=== PATIENT | female | born 1940 | race Caucasian/White ===

== ENCOUNTER 2017-12-01 17:10 | Inpatient (IN) | payer MEDICARE, SELFPAY ==
[2017-12-01 17:48] VITALS: BP 133/63; PULSE 96; RESP 20; TEMP 37.4; O2SAT 92; BMI 38.0
--- NOTE | 2017-12-01 17:50 | NURSING ---
Pt admitted to room 3 from [facility] via cot. Pt oriented to room and call light system explained.
--- NOTE | 2017-12-01 19:44 | PCM.HP.STD ---
Problem List (1) Upper GI bleed Status: Acute (2) Mural thrombus of heart Status: Chronic (3) Depression Status: Chronic (4) Hyperlipidemia Status: Chronic (5) Gout Status: Chronic (6) Anxiety Status: Chronic (7) Insomnia Status: Chronic (8) Pulmonary emboli Status: Chronic (9) Hypokalemia Status: Chronic (10) Iron deficiency anemia Status: Chronic (11) CAD (coronary artery disease) Status: Chronic (12) Hypertension Status: Chronic History of Present Illness Date of Admission: 12/01/17 Chief Complaint: Here for rehabilitation, strengthening, prior to discharge home. The patient is a 77 year old Female with below past medical history presented to [facility] Emergency Department 11/23/2017 with vomiting, diarrhea. She was vomiting red blood, and her stools were black x 3. She is on Xarelto for pulmonary embolism. 11/23/2017 Patient was transferred to [facility] for care. 12/01/2017 Admit to TCU for rehabilitation, strengthening, prior to discharge home. Past Medical History Past Medical History (Chronic Problems): Chronic Problems (Last Updated 10/16/17 @ 13:28 by Tiff Paul) Mural thrombus of heart (Chronic) Depression (Chronic) Presence of aortocoronary bypass graft (Chronic ~07/31/17) CABG x 4 DEMPSEY- LAD, Free JAVIER-OM, SVG-PDA and Disatl RCA Atherosclerotic heart disease of [place] coronary artery without angina pectoris (Chronic) Atrial fibrillation with rapid ventricular response (Chronic) Hyperlipidemia (Chronic) Hyperkalemia (Chronic) Gout (Chronic) Anxiety (Chronic) Aortic mural thrombus (Chronic) Insomnia (Chronic) Carotid artery stenosis (Chronic) PAOD (peripheral arterial occlusive disease) (Chronic) DVT (deep venous thrombosis) (Chronic) Pulmonary emboli (Chronic) Fall (Chronic) Debility (Chronic) Bilateral deep vein thromboses (Chronic) Hypokalemia (Chronic) Morbid obesity (Chronic) Iron deficiency anemia (Chronic) CAD (coronary artery disease) (Chronic) Morbid obesity with BMI of 40.0-44.9, adult (Chronic) Non-STEMI (non-ST elevated myocardial infarction) (Chronic) Dyspnea (Chronic) Orthopnea (Chronic) Hypertension (Chronic) Hypercholesterolemia (Chronic) Descending aorta atherosclerotic plaquin (Chronic) Unstable angina (Chronic) Allergies Latex, Natural Rubber Allergy (Verified 11/23/17 03:58) Itching Sulfa (Sulfonamide Antibiotics) Allergy (Verified 11/23/17 03:58) Other Home Medications: Ambulatory Orders Medication Instructions Recorded Aspirin [Aspirin, Baby] 81 mg PO DAILY@0800 07/25/17 Melatonin 3 mg PO QHS PRN 09/11/17 Metoprolol(XL)Succ [Toprol Xl 100 mg PO DAILY 09/11/17 (Beta Lokesh)] Paroxetine HCl 10 mg PO DAILY 09/11/17 allopurinol 300 mg tablet 100 mg PO QDAY 10/16/17 rosuvastatin 20 mg tablet 20 mg PO QDAY 10/16/17 Chlorthalidone 25 mg PO DAILY 12/01/17 Febuxostat [Uloric] 40 mg PO DAILY 12/01/17 Polyethylene Glycol 3350 [Miralax] 17 gm PO DAILY PRN 12/01/17 Rivaroxaban [Xarelto] 20 mg PO DAILY@0600 12/01/17 Surgical History: coronary bypass surgery - x 4. 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 Denies: Chills, Fever, Weight Change HEENT: Denies: Head Aches, Sinus Congestion, Sinus Drainage Cardiovascular: Denies: Chest Pain, Palpitations Respiratory: Denies: Cough, Shortness of breath at rest, Sputum production Gastrointestinal: Denies: Abdominal Pain, Nausea, Vomiting Genitourinary: Denies: Dysuria Musculoskeletal: Denies: Joint Pain, Joint Tenderness Skin: Denies: Rash, Wounds Neurological: Denies: Numbness, Tingling, Focal weakness Psychiatric: Denies: Anxiety, Depression, Homicidal Ideations, Suicidal Ideations Hematologic/ Lymphatic: Denies: Easy Bruising, Easy Bleeding VTE Information - Inpt Only VTE Present on Admission: No VTE Mechan Device Prophylaxis: Knee High ABY Hose VTE Pharm Prophylaxis ordered?: No Reason prophylaxis not ordered:: Treatment Not Indicated Patient Problems: Active and Suspected Problems (Last Updated 10/16/17 @ 13:28 by Tiff Paul) Upper GI bleed (Acute) - Physical Exam General: Alert, Oriented x3, Cooperative HEENT: Atraumatic, PERRLA, EOMI, Normocephalic Neck: Supple, No JVD, Negative Carotid Bruits Lungs: Clear to auscultation, Normal air movement Cardiovascular: Regular rate, No murmurs Abdomen: Bowel Sounds Present, Soft, Non Tender Extremities: No edema, Capillary Refill Less than 3 Seconds Skin: No rashes, No breakdown Musculoskeletal: No Tenderness to Palpation of Joints or Extremities Neurological: Cranial nerves II-XII grossly intact Psych/Mental Status: Normal Affect, Appropriate Vital Signs Temp Pulse Resp BP Pulse Ox 99.4 F H 96 20 H 133/63 H 92 12/01/17 17:48 12/01/17 17:48 12/01/17 17:48 12/01/17 17:48 12/01/17 17:48 Oxygen Delivery Method Room Air Assessment/Plan Active and Suspected Problems (Last Updated 10/16/17 @ 13:28 by Tiff Paul) Upper GI bleed (Acute) 77 year old female with below past medical history hospitalized at [facility] for upper GI bleed, admitted to TCU for rehabilitation, strengthening, prior to discharge home. Debility - PT/OT. Pain - Tylenol 1000MG Q8H PRN mild pain. Bowel - Miralax 17GM daily, Dulcolax 10MG PO daily PRN. Pneumonia vaccination - Administer Prevnar 13 and/or Pneumovax 23 as necessary. DVT prophylaxis - Not necessary, already on Eliquis. Gout - Allopurinol 100MG daily, Uloric 40MG daily, not sure if she needs both, consider stopping Allopurinol. Coronary Artery Disease status post CABG x 4 - Metoprolol succinate 100MG daily, Aspirin 81MG daily. Hyperlipidemia - Atorvastatin 40MG QHS. Hypertension - Chlorthalidone 25MG daily. Insomnia - Melatonin 3MG QHS PRN. GERD - Pantoprazole 40MG daily. Depression - Paroxetine 20MG daily. DVT/PE - Change Xarelto 20MG daily to Eliquis 5MG twice daily, risk of bleeding is much lower.
[2017-12-01 19:48] VITALS: BMI 38.0
--- NOTE | 2017-12-01 19:56 | HP.PCM_ITS ---
Problem List (1) Upper GI bleed Status: Acute (2) Mural thrombus of heart Status: Chronic (3) Depression Status: Chronic (4) Hyperlipidemia Status: Chronic (5) Gout Status: Chronic (6) Anxiety Status: Chronic (7) Insomnia Status: Chronic (8) Pulmonary emboli Status: Chronic (9) Hypokalemia Status: Chronic (10) Iron deficiency anemia Status: Chronic (11) CAD (coronary artery disease) Status: Chronic (12) Hypertension Status: Chronic History of Present Illness Date of Admission: 12/01/17 Chief Complaint: Here for rehabilitation, strengthening, prior to discharge home. The patient is a 77 year old Female with below past medical history presented to [facility] Emergency Department 11/23/2017 with vomiting, diarrhea. She was vomiting red blood, and her stools were black x 3. She is on Xarelto for pulmonary embolism. 11/23/2017 Patient was transferred to [facility] for care. 12/01/2017 Admit to TCU for rehabilitation, strengthening, prior to discharge home. Past Medical History Past Medical History (Chronic Problems): Chronic Problems (Last Updated 10/16/17 @ 13:28 by Tiff Paul) Mural thrombus of heart (Chronic) Depression (Chronic) Presence of aortocoronary bypass graft (Chronic ~07/31/17) CABG x 4 DEMPSEY- LAD, Free JAVIER-OM, SVG-PDA and Disatl RCA Atherosclerotic heart disease of [place] coronary artery without angina pectoris (Chronic) Atrial fibrillation with rapid ventricular response (Chronic) Hyperlipidemia (Chronic) Hyperkalemia (Chronic) Gout (Chronic) Anxiety (Chronic) Aortic mural thrombus (Chronic) Insomnia (Chronic) Carotid artery stenosis (Chronic) PAOD (peripheral arterial occlusive disease) (Chronic) DVT (deep venous thrombosis) (Chronic) Pulmonary emboli (Chronic) Fall (Chronic) Debility (Chronic) Bilateral deep vein thromboses (Chronic) Hypokalemia (Chronic) Morbid obesity (Chronic) Iron deficiency anemia (Chronic) CAD (coronary artery disease) (Chronic) Morbid obesity with BMI of 40.0-44.9, adult (Chronic) Non-STEMI (non-ST elevated myocardial infarction) (Chronic) Dyspnea (Chronic) Orthopnea (Chronic) Hypertension (Chronic) Hypercholesterolemia (Chronic) Descending aorta atherosclerotic plaquin (Chronic) Unstable angina (Chronic) Allergies Latex, Natural Rubber Allergy (Verified 11/23/17 03:58) Itching Sulfa (Sulfonamide Antibiotics) Allergy (Verified 11/23/17 03:58) Other Home Medications: Ambulatory Orders Medication Instructions Recorded Aspirin [Aspirin, Baby] 81 mg PO DAILY@0800 07/25/17 Melatonin 3 mg PO QHS PRN 09/11/17 Metoprolol(XL)Succ [Toprol Xl 100 mg PO DAILY 09/11/17 (Beta Lokesh)] Paroxetine HCl 10 mg PO DAILY 09/11/17 allopurinol 300 mg tablet 100 mg PO QDAY 10/16/17 rosuvastatin 20 mg tablet 20 mg PO QDAY 10/16/17 Chlorthalidone 25 mg PO DAILY 12/01/17 Febuxostat [Uloric] 40 mg PO DAILY 12/01/17 Polyethylene Glycol 3350 [Miralax] 17 gm PO DAILY PRN 12/01/17 Rivaroxaban [Xarelto] 20 mg PO DAILY@0600 12/01/17 Surgical History: coronary bypass surgery - x 4. 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 Denies: Chills, Fever, Weight Change HEENT: Denies: Head Aches, Sinus Congestion, Sinus Drainage Cardiovascular: Denies: Chest Pain, Palpitations Respiratory: Denies: Cough, Shortness of breath at rest, Sputum production Gastrointestinal: Denies: Abdominal Pain, Nausea, Vomiting Genitourinary: Denies: Dysuria Musculoskeletal: Denies: Joint Pain, Joint Tenderness Skin: Denies: Rash, Wounds Neurological: Denies: Numbness, Tingling, Focal weakness Psychiatric: Denies: Anxiety, Depression, Homicidal Ideations, Suicidal Ideations Hematologic/ Lymphatic: Denies: Easy Bruising, Easy Bleeding VTE Information - Inpt Only VTE Present on Admission: No VTE Mechan Device Prophylaxis: Knee High ABY Hose VTE Pharm Prophylaxis ordered?: No Reason prophylaxis not ordered:: Treatment Not Indicated Patient Problems: Active and Suspected Problems (Last Updated 10/16/17 @ 13:28 by Tiff Paul) Upper GI bleed (Acute) - Physical Exam General: Alert, Oriented x3, Cooperative HEENT: Atraumatic, PERRLA, EOMI, Normocephalic Neck: Supple, No JVD, Negative Carotid Bruits Lungs: Clear to auscultation, Normal air movement Cardiovascular: Regular rate, No murmurs Abdomen: Bowel Sounds Present, Soft, Non Tender Extremities: No edema, Capillary Refill Less than 3 Seconds Skin: No rashes, No breakdown Musculoskeletal: No Tenderness to Palpation of Joints or Extremities Neurological: Cranial nerves II-XII grossly intact Psych/Mental Status: Normal Affect, Appropriate Vital Signs Temp Pulse Resp BP Pulse Ox 99.4 F H 96 20 H 133/63 H 92 12/01/17 17:48 12/01/17 17:48 12/01/17 17:48 12/01/17 17:48 12/01/17 17:48 Oxygen Delivery Method Room Air Assessment/Plan Active and Suspected Problems (Last Updated 10/16/17 @ 13:28 by Tiff Paul) Upper GI bleed (Acute) 77 year old female with below past medical history hospitalized at [facility] for upper GI bleed, admitted to TCU for rehabilitation, strengthening, prior to discharge home. * Debility - PT/OT. * Pain - Tylenol 1000MG Q8H PRN mild pain. * Bowel - Miralax 17GM daily, Dulcolax 10MG PO daily PRN. * Pneumonia vaccination - Administer Prevnar 13 and/or Pneumovax 23 as necessary. * DVT prophylaxis - Not necessary, already on Eliquis. * Gout - Allopurinol 100MG daily, Uloric 40MG daily, not sure if she needs both , consider stopping Allopurinol. * Coronary Artery Disease status post CABG x 4 - Metoprolol succinate 100MG daily, Aspirin 81MG daily. * Hyperlipidemia - Atorvastatin 40MG QHS. * Hypertension - Chlorthalidone 25MG daily. * Insomnia - Melatonin 3MG QHS PRN. * GERD - Pantoprazole 40MG daily. * Depression - Paroxetine 20MG daily. * DVT/PE - Change Xarelto 20MG daily to Eliquis 5MG twice daily, risk of bleeding is much lower.
[2017-12-01] MEDS: Atorvastatin Calcium 40 MG Tablet PO (21:48)
[2017-12-01] MEDS: MELATONIN 3 MG TABLET PO (21:49)
[2017-12-02] MEDS: Menthol/Lanolin/Calamine/Znox 113 GM Tube 1 APPLIC TOPICAL ×2 (06:43→22:13)
[2017-12-02] MEDS: APIXABAN 5 MG TABLET PO ×2 (06:44→22:14)
[2017-12-02 06:45] VITALS: PULSE 88
[2017-12-02] MEDS: Metoprolol(XL)Succ 100 MG Tablet PO (06:45)
[2017-12-02] MEDS: PARoxetine 10 MG Tablet PO (06:45)
[2017-12-02] MEDS: FEBUXOSTAT 40 MG TABLET PO (06:45)
[2017-12-02] MEDS: Nystatin Powder 15gm Bottle 1 APPLIC TOPICAL ×2 (06:45→22:17)
[2017-12-02] MEDS: Polyethylene Glycol 3350 17 GM PACKET PO (06:46)
[2017-12-02] MEDS: Chlorthalidone 50 MG Tablet 25 MG PO (06:46)
[2017-12-02 06:52] LABS: Absolute Lymphocyte Count 1.74 X10^3/ul (0.83-4.51); Absolute Neutrophil Count 8.5 X10^3/uL (2.0-7.7); Basophil# 0.02 X10^3/uL; Basophil% 0.2 % (0-1); Eosinophil# 0.28 X10^3/uL; Eosinophils% 2.3 % (0-5); Hematocrit 25.2 % (37-47); Hemoglobin 7.8 g/dl (12.0-15.0); Lymphocyte # 1.74 X10^3/ul (4.0); Lymphocyte % 14.6 % (19-41); Mean Corpuscular Hgb 29.7 pg (27.0-32.0); Mean Corpuscular Volume 95.8 fL (81-99); Mean Platelet Vol. 10.3 fl (6.2-12.0); Monocyte# 1.32 X10^3/uL; Monocyte% 11.1 % (0-10); Neutrophil # 8.51 X10^3/uL (2.7-7.7); Neutrophil % 71.4 % (47-70); Platelet Count 337 K/mm3 (150-450); RBC Distribution Width CV 16.4 % (11.6-14.6); RBC Distribution Width SD 53.4 fl (35.1-43.9); Red Blood Count 2.63 M/mm3 (4.2-5.4); White Blood Count 11.9 K/mm3 (4.4-11.0)
[2017-12-02 06:57] LABS: POSITIVE COUNT NO; POSITIVE DIFFERENTIAL NO; POSITIVE MORPHOLOGY NO
[2017-12-02 07:29] LABS: Anion Gap 10 (5-15); BUN 32 mg/dL (7-18); BUN/Creat Ratio 20.6 RATIO (10-20); Calcium,Total 8.9 mg/dL (8.5-10.1); Chloride 102 mmol/L (98-107); Creatinine, Serum 1.55 mg/dL (0.55-1.02); EST Glomerular Filtration Rate 35 mL/min (>60); Est Glom Filt Rate - Afr Amer 42 mL/min (>60); Estimated Creatinine Clearance 29.36 ml/min; Glucose 102 mg/dL (70-110); Potassium 3.5 mmol/L (3.5-5.1); Sodium Level 139 mmol/L (136-145)
[2017-12-02] MEDS: Aspirin 81 MG TAB.CHEW PO (08:11)
[2017-12-02] MEDS: Tuberculin,Purif.prot.deriv. 50 TU/ML Vial 5 ML ID (11:21)
--- NOTE | 2017-12-02 11:21 | NURSING ---
Labs reviewed, NO for 2 units PRBC, type and screen and 40mg IV lasix in between each unit of PRBC. Patient mad aware.
--- NOTE | 2017-12-02 13:58 | NURSING ---
Pt transported to room 205 on [facility] via wheelchair for blood transfusion.
[2017-12-02] MEDS: Acetaminophen 500 MG Tablet 1000 MG PO (16:31)
--- NOTE | 2017-12-02 21:50 | NURSING ---
Pt returned from [facility] via wheelchair.
[2017-12-02 22:09] VITALS: BP 138/83; PULSE 76; RESP 18; TEMP 37.1; O2SAT 96
[2017-12-02] MEDS: Atorvastatin Calcium 40 MG Tablet PO (22:13)
[2017-12-02] MEDS: MELATONIN 3 MG TABLET PO (22:14)
[2017-12-03] MEDS: Menthol/Lanolin/Calamine/Znox 113 GM Tube 1 APPLIC TOPICAL ×2 (06:02→20:36)
[2017-12-03] MEDS: Chlorthalidone 50 MG Tablet 25 MG PO (06:06)
[2017-12-03] MEDS: Nystatin Powder 15gm Bottle 1 APPLIC TOPICAL ×2 (06:09→20:36)
[2017-12-03] MEDS: Polyethylene Glycol 3350 17 GM PACKET PO (06:09)
[2017-12-03] MEDS: PARoxetine 10 MG Tablet PO (06:10)
[2017-12-03 06:16] LABS: Hematocrit 31.8 % (37-47); Hemoglobin 10.1 g/dl (12.0-15.0)
[2017-12-03 06:20] VITALS: PULSE 81
[2017-12-03] MEDS: Metoprolol(XL)Succ 100 MG Tablet PO (06:20)
[2017-12-03] MEDS: FEBUXOSTAT 40 MG TABLET PO (06:21)
[2017-12-03] MEDS: APIXABAN 5 MG TABLET PO ×2 (06:21→16:56)
[2017-12-03] MEDS: Aspirin 81 MG TAB.CHEW PO (08:03)
[2017-12-03 10:00] VITALS: PULSE 77; RESP 18; O2SAT 96
[2017-12-03] MEDS: Acetaminophen 500 MG Tablet 1000 MG PO (11:06)
[2017-12-03 14:17] VITALS: BP 155/92; PULSE 78; RESP 18; O2SAT 94
[2017-12-03 14:21] LABS: Bedside Glucose 135 mg/dL (70-110)
--- NOTE | 2017-12-03 14:24 | NURSING ---
Addendum entered by Harriet Monson 12/03/17 15:19: dr knutson notified, new order for chest xray & resp panel Original Note: therapy reported pt clammy, diaphoretic. vitals obtained, see documentation. blood sugar checked 135. Pt noted to have nasal congestion. denies any other symptoms except feeling blah will update Dr Knutson
--- NOTE | 2017-12-03 15:17 | RAD_ITS ---
STUDY: X-RAY CHEST REASON FOR EXAM: Female, 77 years old. Cough, GI bleed TECHNIQUE: PA and lateral views of the chest. COMPARISON: September 11, 2017 FINDINGS: The lungs are clear and expanded. There is no demonstrated pleural abnormality. Normal size heart. Sternal wires and mediastinal surgical clips compatible with prior CABG. Normal mediastinum and gabi. Normal visualized pulmonary arteries. There is atherosclerotic calcification of the aortic arch with tortuosity. There are diffuse degenerative changes of the visualized thoracic spine. Normal visualized ribs, clavicles, and shoulders. There is no demonstrated abnormality of the visualized soft tissue structures of the upper abdomen. RAD/Chest PA and Lateral IMPRESSION: 1. No acute cardiopulmonary process. Electronically Signed: Roberth Pino MD at 18:24 EST , Service support ,
--- NOTE | 2017-12-03 15:20 | PCM.PN.RX ---
<Hilario Nur D - Last Filed: 12/03/17 15:20> Progress Note - Pharmacy Subjective: TCU Admission Objective: Allergies Latex, Natural Rubber Allergy (Verified 11/23/17 03:58) Itching Sulfa (Sulfonamide Antibiotics) Allergy (Verified 11/23/17 03:58) Other Home Medications Medication Instructions Recorded Aspirin [Aspirin, Baby] 81 mg PO DAILY@0800 07/25/17 Melatonin 3 mg PO QHS PRN 09/11/17 Metoprolol(XL)Succ [Toprol Xl 100 mg PO DAILY 09/11/17 (Beta Lokesh)] Paroxetine HCl 10 mg PO DAILY 09/11/17 allopurinol 300 mg tablet 100 mg PO QDAY 10/16/17 rosuvastatin 20 mg tablet 20 mg PO QDAY 10/16/17 Chlorthalidone 25 mg PO DAILY 12/01/17 Febuxostat [Uloric] 40 mg PO DAILY 12/01/17 Polyethylene Glycol 3350 [Miralax] 17 gm PO DAILY PRN 12/01/17 Rivaroxaban [Xarelto] 20 mg PO DAILY@0600 12/01/17 Current Medications Generic Name Dose Route Start Last Admin Trade Name Freq PRN Reason Stop Dose Admin Acetaminophen 1,000 mg 12/01/17 19:56 12/03/17 11:06 Tylenol PO 1,000 mg Q8H PRN PRN Administration MILD PAIN (1-3/10) Apixaban 5 mg 12/02/17 06:00 12/03/17 06:21 Eliquis PO 5 mg BID RICK Administration Aspirin 81 mg 12/02/17 08:00 12/03/17 08:03 Aspirin, Baby PO 81 mg DAILY@0800 RICK Administration Atorvastatin Calcium 40 mg 12/01/17 22:00 12/02/17 22:13 Lipitor PO 40 mg QHS RICK Administration Bisacodyl 10 mg 12/01/17 19:57 Dulcolax PO DAILY PRN Constipation Calamine/Phenol 1 applic 12/02/17 06:00 12/03/17 06:02 Calmoseptine Ointment TOPICAL 1 applicatio 0600,2200 RICK Administration Protocol Chlorthalidone 25 mg 12/02/17 06:00 12/03/17 06:06 Hygroton PO 25 mg DAILY RICK Administration Melatonin 3 mg 12/01/17 17:59 12/02/17 22:14 Melatonin PO 3 mg QHS PRN Administration INSOMNIA Metoprolol Succinate 100 mg 12/02/17 06:00 12/03/17 06:20 Toprol Xl (Beta Lokesh) PO 100 mg DAILY RICK Administration Nutritional Formula (Lactose Free) 120 ml 12/02/17 06:00 12/03/17 11:08 Ensure Enlive PO 120 ml 4X/DAY RICK Administration Nystatin 1 applic 12/02/17 06:00 12/03/17 06:09 Mycostatin Powder TOPICAL 1 applicatio 0600,2200 RICK Administration Protocol Pantoprazole Sodium 40 mg 01/24/18 06:00 Protonix PO DAILY RICK Paroxetine HCl 10 mg 12/02/17 06:00 12/03/17 06:10 Paxil PO 10 mg DAILY RICK Administration Polyethylene Glycol 17 gm 12/02/17 06:00 12/03/17 06:09 Miralax PO 17 gm DAILY RICK Administration Tuberculin PPD 5 tu 12/09/17 10:00 Tubersol, Aplisol, Ppd ID 12/09/17 10:01 X1 ONE Problem List (Last Updated 10/16/17 @ 13:28 by Tiff Paul) Upper GI bleed (Acute) Mural thrombus of heart (Chronic) Depression (Chronic) Vital Signs Temp Pulse Resp BP Pulse Ox 98.7 F 78 18 155/92 H 94 12/02/17 22:09 12/03/17 14:17 12/03/17 14:17 12/03/17 14:17 12/03/17 14:17 Oxygen Delivery Method Room Air Weight: 106.821 kg Body Mass Index (BMI) 38.0 Sodium 139 mmol/L (136-145) 12/02/17 06:22 Potassium 3.5 mmol/L (3.5-5.1) 12/02/17 06:22 Chloride 102 mmol/L (98-107) 12/02/17 06:22 Carbon Dioxide 27.0 mmol/L (21.0-32.0) 12/02/17 06:22 Anion Gap 10 (5-15) 12/02/17 06:22 BUN 32 mg/dL (7-18) H 12/02/17 06:22 Creatinine 1.55 mg/dL (0.55-1.02) H 12/02/17 06:22 Est GFR (MDRD) Af Amer 42 mL/min (>60) L 12/02/17 06:22 Est GFR (MDRD) Non-Af 35 mL/min (>60) L 12/02/17 06:22 BUN/Creatinine Ratio 20.6 RATIO (10-20) H 12/02/17 06:22 Glucose 102 mg/dL (70-110) 12/02/17 06:22 Assessment/Plan: 1) Pain APAP for mild pain. Continue to monitor prn medication use, daily pain scores. 2) HTN/CAD Chlorthalidone, ASA, metoprolol, atorvastatin. BP not at goal at this time, HR within goal range, lipids at goal, hepatic enzymes at goal. Continue to monitor BP/HR, lipids, enzymes, for chest pain. 3) Gout Febuxostat daily. Continue to monitor clinically. 4) DVT/PE Apixaban twice daily. Hgb/Hct at baseline at this time. Continue to monitor s/s bleeding/clot. 5) GI Pantoprazole daily. Continue to monitor for s/s GI distress. 6) Derm Calmoseptine, nystatin powder. Continue to monitor clinically. 7) Sleep Melatonin at HS. Continue to monitor for insomnia. Psychotropic Medications: 8) Depression Paroxetine daily. Continue to monitor s/s depression/anxiety. Unnecessary Medications: None Bowel Regimen: 9) PEG daily, prn bisacodyl. Continue to monitor prn medication use, for constipation/diarrhea. Date of Note:: 12/03/17 - Provider Comments Provider responsibility: Provider responsible to enter orders to implement recommendations <Karan Knutson Chi - Last Filed: 12/03/17 17:08> Progress Note - Pharmacy Subjective: [] Objective: Allergies Latex, Natural Rubber Allergy (Verified 11/23/17 03:58) Itching Sulfa (Sulfonamide Antibiotics) Allergy (Verified 11/23/17 03:58) Other Home Medications Medication Instructions Recorded Aspirin [Aspirin, Baby] 81 mg PO DAILY@0800 07/25/17 Melatonin 3 mg PO QHS PRN 09/11/17 Metoprolol(XL)Succ [Toprol Xl 100 mg PO DAILY 09/11/17 (Beta Lokesh)] Paroxetine HCl 10 mg PO DAILY 09/11/17 allopurinol 300 mg tablet 100 mg PO QDAY 10/16/17 rosuvastatin 20 mg tablet 20 mg PO QDAY 10/16/17 Chlorthalidone 25 mg PO DAILY 12/01/17 Febuxostat [Uloric] 40 mg PO DAILY 12/01/17 Polyethylene Glycol 3350 [Miralax] 17 gm PO DAILY PRN 12/01/17 Rivaroxaban [Xarelto] 20 mg PO DAILY@0600 12/01/17 Current Medications Generic Name Dose Route Start Last Admin Trade Name Freq PRN Reason Stop Dose Admin Acetaminophen 1,000 mg 12/01/17 19:56 12/03/17 11:06 Tylenol PO 1,000 mg Q8H PRN PRN Administration MILD PAIN (1-310) Apixaban 5 mg 12/02/17 06:00 12/03/17 16:56 Eliquis PO 5 mg BID RICK Administration Aspirin 81 mg 12/02/17 08:00 12/03/17 08:03 Aspirin, Baby PO 81 mg DAILY@0800 RICK Administration Atorvastatin Calcium 40 mg 12/01/17 22:00 12/02/17 22:13 Lipitor PO 40 mg QHS RICK Administration Bisacodyl 10 mg 12/01/17 19:57 Dulcolax PO DAILY PRN Constipation Calamine/Phenol 1 applic 12/02/17 06:00 12/03/17 06:02 Calmoseptine Ointment TOPICAL 1 applicatio 0600,2200 [facility] Administration Protocol Chlorthalidone 25 mg 12/02/17 06:00 12/03/17 06:06 Hygro[place] PO 25 mg DAILY RICK Administration Melatonin 3 mg 12/01/17 17:59 12/02/17 22:14 Melatonin PO 3 mg QHS PRN Administration INSOMNIA Metoprolol Succinate 100 mg 12/02/17 06:00 12/03/17 06:20 Toprol Xl (Beta Lokesh) PO 100 mg DAILY RICK Administration Nutritional Formula (Lactose Free) 120 ml 12/02/17 06:00 12/03/17 16:56 Ensure Enlive PO 120 ml 4X/DAY RICK Administration Nystatin 1 applic 12/02/17 06:00 12/03/17 06:09 Mycostatin Powder TOPICAL 1 applicatio 0600,2200 [facility] Administration Protocol Pantoprazole Sodium 40 mg 01/24/18 06:00 Protonix PO DAILY [facility] Paroxetine HCl 10 mg 12/02/17 06:00 12/03/17 06:10 Paxil PO 10 mg DAILY RICK Administration Polyethylene Glycol 17 gm 12/02/17 06:00 12/03/17 06:09 Miralax PO 17 gm DAILY RICK Administration Tuberculin PPD 5 tu 12/09/17 10:00 Tubersol, Aplisol, Ppd ID 12/09/17 10:01 X1 ONE Problem List (Last Updated 10/16/17 @ 13:28 by Tiff Paul) Upper GI bleed (Acute) Mural thrombus of heart (Chronic) Depression (Chronic) Vital Signs Temp Pulse Resp BP Pulse Ox 97.2 F L 80 18 137/71 H 98 12/03/17 15:51 12/03/17 15:51 12/03/17 15:51 12/03/17 15:51 12/03/17 15:51 Oxygen Delivery Method Room Air Weight: 106.821 kg Body Mass Index (BMI) 38.0 Sodium 139 mmol/L (136-145) 12/02/17 06:22 Potassium 3.5 mmol/L (3.5-5.1) 12/02/17 06:22 Chloride 102 mmol/L (98-107) 12/02/17 06:22 Carbon Dioxide 27.0 mmol/L (21.0-32.0) 12/02/17 06:22 Anion Gap 10 (5-15) 12/02/17 06:22 BUN 32 mg/dL (7-18) H 12/02/17 06:22 Creatinine 1.55 mg/dL (0.55-1.02) H 12/02/17 06:22 Est GFR (MDRD) Af Amer 42 mL/min (>60) L 12/02/17 06:22 Est GFR (MDRD) Non-Af 35 mL/min (>60) L 12/02/17 06:22 BUN/Creatinine Ratio 20.6 RATIO (10-20) H 12/02/17 06:22 Glucose 102 mg/dL (70-110) 12/02/17 06:22 Assessment/Plan: Psychotropic Medications: Unnecessary Medications: Bowel Regimen: - Provider Comments Provider responsibility: Provider responsible to enter orders to implement recommendations Provider Comments to Recommendations by Pharmacy: Agree
--- NOTE | 2017-12-03 15:27 | PHA.CONS_ITS ---
<Hilario Nur D - Last Filed: 12/03/17 15:20> Progress Note - Pharmacy Subjective: TCU Admission Objective: Allergies Latex, Natural Rubber Allergy (Verified 11/23/17 03:58) Itching Sulfa (Sulfonamide Antibiotics) Allergy (Verified 11/23/17 03:58) Other Home Medications Medication Instructions Recorded Aspirin [Aspirin, Baby] 81 mg PO DAILY@0800 07/25/17 Melatonin 3 mg PO QHS PRN 09/11/17 Metoprolol(XL)Succ [Toprol Xl 100 mg PO DAILY 09/11/17 (Beta Lokesh)] Paroxetine HCl 10 mg PO DAILY 09/11/17 allopurinol 300 mg tablet 100 mg PO QDAY 10/16/17 rosuvastatin 20 mg tablet 20 mg PO QDAY 10/16/17 Chlorthalidone 25 mg PO DAILY 12/01/17 Febuxostat [Uloric] 40 mg PO DAILY 12/01/17 Polyethylene Glycol 3350 [Miralax] 17 gm PO DAILY PRN 12/01/17 Rivaroxaban [Xarelto] 20 mg PO DAILY@0600 12/01/17 Current Medications Generic Name Dose Route Start Last Admin Trade Name Freq PRN Reason Stop Dose Admin Acetaminophen 1,000 mg 12/01/17 19:56 12/03/17 11:06 Tylenol PO 1,000 mg Q8H PRN PRN Administration MILD PAIN (1-3/10) Apixaban 5 mg 12/02/17 06:00 12/03/17 06:21 Eliquis PO 5 mg BID RICK Administration Aspirin 81 mg 12/02/17 08:00 12/03/17 08:03 Aspirin, Baby PO 81 mg DAILY@0800 RICK Administration Atorvastatin Calcium 40 mg 12/01/17 22:00 12/02/17 22:13 Lipitor PO 40 mg QHS RICK Administration Bisacodyl 10 mg 12/01/17 19:57 Dulcolax PO DAILY PRN Constipation Calamine/Phenol 1 applic 12/02/17 06:00 12/03/17 06:02 Calmoseptine Ointment TOPICAL 1 applicatio 0600,2200 RICK Administration Protocol Chlorthalidone 25 mg 12/02/17 06:00 12/03/17 06:06 Hygroton PO 25 mg DAILY RICK Administration Melatonin 3 mg 12/01/17 17:59 12/02/17 22:14 Melatonin PO 3 mg QHS PRN Administration INSOMNIA Metoprolol Succinate 100 mg 12/02/17 06:00 12/03/17 06:20 Toprol Xl (Beta Lokesh) PO 100 mg DAILY RICK Administration Nutritional Formula (Lactose Free) 120 ml 12/02/17 06:00 12/03/17 11:08 Ensure Enlive PO 120 ml 4X/DAY RICK Administration Nystatin 1 applic 12/02/17 06:00 12/03/17 06:09 Mycostatin Powder TOPICAL 1 applicatio 0600,2200 RICK Administration Protocol Pantoprazole Sodium 40 mg 01/24/18 06:00 Protonix PO DAILY RICK Paroxetine HCl 10 mg 12/02/17 06:00 12/03/17 06:10 Paxil PO 10 mg DAILY RICK Administration Polyethylene Glycol 17 gm 12/02/17 06:00 12/03/17 06:09 Miralax PO 17 gm DAILY RICK Administration Tuberculin PPD 5 tu 12/09/17 10:00 Tubersol, Aplisol, Ppd ID 12/09/17 10:01 X1 ONE Problem List (Last Updated 10/16/17 @ 13:28 by Tiff Paul) Upper GI bleed (Acute) Mural thrombus of heart (Chronic) Depression (Chronic) Vital Signs Temp Pulse Resp BP Pulse Ox 98.7 F 78 18 155/92 H 94 12/02/17 22:09 12/03/17 14:17 12/03/17 14:17 12/03/17 14:17 12/03/17 14:17 Oxygen Delivery Method Room Air Weight: 106.821 kg Body Mass Index (BMI) 38.0 Sodium 139 mmol/L (136-145) 12/02/17 06:22 Potassium 3.5 mmol/L (3.5-5.1) 12/02/17 06:22 Chloride 102 mmol/L (98-107) 12/02/17 06:22 Carbon Dioxide 27.0 mmol/L (21.0-32.0) 12/02/17 06:22 Anion Gap 10 (5-15) 12/02/17 06:22 BUN 32 mg/dL (7-18) H 12/02/17 06:22 Creatinine 1.55 mg/dL (0.55-1.02) H 12/02/17 06:22 Est GFR (MDRD) Af Amer 42 mL/min (>60) L 12/02/17 06:22 Est GFR (MDRD) Non-Af 35 mL/min (>60) L 12/02/17 06:22 BUN/Creatinine Ratio 20.6 RATIO (10-20) H 12/02/17 06:22 Glucose 102 mg/dL (70-110) 12/02/17 06:22 Assessment/Plan: 1) Pain APAP for mild pain. Continue to monitor prn medication use, daily pain scores. 2) HTN/CAD Chlorthalidone, ASA, metoprolol, atorvastatin. BP not at goal at this time, HR within goal range, lipids at goal, hepatic enzymes at goal. Continue to monitor BP/HR, lipids, enzymes, for chest pain. 3) Gout Febuxostat daily. Continue to monitor clinically. 4) DVT/PE Apixaban twice daily. Hgb/Hct at baseline at this time. Continue to monitor s /s bleeding/clot. 5) GI Pantoprazole daily. Continue to monitor for s/s GI distress. 6) Derm Calmoseptine, nystatin powder. Continue to monitor clinically. 7) Sleep Melatonin at HS. Continue to monitor for insomnia. Psychotropic Medications: 8) Depression Paroxetine daily. Continue to monitor s/s depression/anxiety. Unnecessary Medications: None Bowel Regimen: 9) PEG daily, prn bisacodyl. Continue to monitor prn medication use, for constipation/diarrhea. Date of Note:: 12/03/17 - Provider Comments Provider responsibility: Provider responsible to enter orders to implement recommendations <Karan Knutson Chi - Last Filed: 12/03/17 17:08> Progress Note - Pharmacy Subjective: [] Objective: Allergies Latex, Natural Rubber Allergy (Verified 11/23/17 03:58) Itching Sulfa (Sulfonamide Antibiotics) Allergy (Verified 11/23/17 03:58) Other Home Medications Medication Instructions Recorded Aspirin [Aspirin, Baby] 81 mg PO DAILY@0800 07/25/17 Melatonin 3 mg PO QHS PRN 09/11/17 Metoprolol(XL)Succ [Toprol Xl 100 mg PO DAILY 09/11/17 (Beta Lokesh)] Paroxetine HCl 10 mg PO DAILY 09/11/17 allopurinol 300 mg tablet 100 mg PO QDAY 10/16/17 rosuvastatin 20 mg tablet 20 mg PO QDAY 10/16/17 Chlorthalidone 25 mg PO DAILY 12/01/17 Febuxostat [Uloric] 40 mg PO DAILY 12/01/17 Polyethylene Glycol 3350 [Miralax] 17 gm PO DAILY PRN 12/01/17 Rivaroxaban [Xarelto] 20 mg PO DAILY@0600 12/01/17 Current Medications Generic Name Dose Route Start Last Admin Trade Name Freq PRN Reason Stop Dose Admin Acetaminophen 1,000 mg 12/01/17 19:56 12/03/17 11:06 Tylenol PO 1,000 mg Q8H PRN PRN Administration MILD PAIN (1-310) Apixaban 5 mg 12/02/17 06:00 12/03/17 16:56 Eliquis PO 5 mg BID RICK Administration Aspirin 81 mg 12/02/17 08:00 12/03/17 08:03 Aspirin, Baby PO 81 mg DAILY@0800 RICK Administration Atorvastatin Calcium 40 mg 12/01/17 22:00 12/02/17 22:13 Lipitor PO 40 mg QHS RICK Administration Bisacodyl 10 mg 12/01/17 19:57 Dulcolax PO DAILY PRN Constipation Calamine/Phenol 1 applic 12/02/17 06:00 12/03/17 06:02 Calmoseptine Ointment TOPICAL 1 applicatio 0600,2200 [facility] Administration Protocol Chlorthalidone 25 mg 12/02/17 06:00 12/03/17 06:06 Hygroton PO 25 mg DAILY RICK Administration Melatonin 3 mg 12/01/17 17:59 12/02/17 22:14 Melatonin PO 3 mg QHS PRN Administration INSOMNIA Metoprolol Succinate 100 mg 12/02/17 06:00 12/03/17 06:20 Toprol Xl (Beta Lokesh) PO 100 mg DAILY RICK Administration Nutritional Formula (Lactose Free) 120 ml 12/02/17 06:00 12/03/17 16:56 Ensure Enlive PO 120 ml 4X/DAY RICK Administration Nystatin 1 applic 12/02/17 06:00 12/03/17 06:09 Mycostatin Powder TOPICAL 1 applicatio 0600,2200 [facility] Administration Protocol Pantoprazole Sodium 40 mg 01/24/18 06:00 Protonix PO DAILY [facility] Paroxetine HCl 10 mg 12/02/17 06:00 12/03/17 06:10 Paxil PO 10 mg DAILY RICK Administration Polyethylene Glycol 17 gm 12/02/17 06:00 12/03/17 06:09 Miralax PO 17 gm DAILY RICK Administration Tuberculin PPD 5 tu 12/09/17 10:00 Tubersol, Aplisol, Ppd ID 12/09/17 10:01 X1 ONE Problem List (Last Updated 10/16/17 @ 13:28 by Tiff Paul) Upper GI bleed (Acute) Mural thrombus of heart (Chronic) Depression (Chronic) Vital Signs Temp Pulse Resp BP Pulse Ox 97.2 F L 80 18 137/71 H 98 12/03/17 15:51 12/03/17 15:51 12/03/17 15:51 12/03/17 15:51 12/03/17 15:51 Oxygen Delivery Method Room Air Weight: 106.821 kg Body Mass Index (BMI) 38.0 Sodium 139 mmol/L (136-145) 12/02/17 06:22 Potassium 3.5 mmol/L (3.5-5.1) 12/02/17 06:22 Chloride 102 mmol/L (98-107) 12/02/17 06:22 Carbon Dioxide 27.0 mmol/L (21.0-32.0) 12/02/17 06:22 Anion Gap 10 (5-15) 12/02/17 06:22 BUN 32 mg/dL (7-18) H 12/02/17 06:22 Creatinine 1.55 mg/dL (0.55-1.02) H 12/02/17 06:22 Est GFR (MDRD) Af Amer 42 mL/min (>60) L 12/02/17 06:22 Est GFR (MDRD) Non-Af 35 mL/min (>60) L 12/02/17 06:22 BUN/Creatinine Ratio 20.6 RATIO (10-20) H 12/02/17 06:22 Glucose 102 mg/dL (70-110) 12/02/17 06:22 Assessment/Plan: Psychotropic Medications: Unnecessary Medications: Bowel Regimen: - Provider Comments Provider responsibility: Provider responsible to enter orders to implement recommendations Provider Comments to Recommendations by Pharmacy: Agree
[2017-12-03 15:51] VITALS: BP 137/71; PULSE 80; RESP 18; TEMP 36.2; O2SAT 98
--- NOTE | 2017-12-03 15:54 | NURSING ---
Addendum entered by Harriet Monson 12/03/17 18:58: CHEST XRAY RESULTS CALLED TO [facility] Original Note: Addendum entered by Harriet Monson 12/03/17 17:34: dr bergeron updated, new order JANE to check circulation and check uric acid level Original Note: THIS NURSE FOUND PT TOES ON RIGHT BIG,3RD AND SMALL TOE ARE PURPLE/BLUE. AND ON LEFT FOOT BIG,AND 2ND TOE PURPLE/BLUE. PT COMPLANED OF PAIN IN FEET. REPORTED TO MARTHA OSUNA
[2017-12-03 18:18] LABS: Uric Acid 4.1 mg/dL (2.6-6.0)
[2017-12-03] MEDS: Atorvastatin Calcium 40 MG Tablet PO (20:36)
[2017-12-03] MEDS: MELATONIN 3 MG TABLET PO (20:53)
[2017-12-04] MEDS: Acetaminophen 500 MG Tablet 1000 MG PO ×3 (01:10→21:03)
[2017-12-04 06:00] VITALS: PULSE 78; RESP 16; O2SAT 96
[2017-12-04] MEDS: Chlorthalidone 50 MG Tablet 25 MG PO (06:31)
[2017-12-04] MEDS: Menthol/Lanolin/Calamine/Znox 113 GM Tube 1 APPLIC TOPICAL ×2 (06:31→20:58)
[2017-12-04] MEDS: APIXABAN 5 MG TABLET PO ×2 (06:31→17:02)
[2017-12-04] MEDS: PARoxetine 10 MG Tablet PO (06:32)
[2017-12-04] MEDS: FEBUXOSTAT 40 MG TABLET PO (06:32)
[2017-12-04] MEDS: Polyethylene Glycol 3350 17 GM PACKET PO (06:32)
[2017-12-04] MEDS: Nystatin Powder 15gm Bottle 1 APPLIC TOPICAL ×2 (06:32→20:59)
[2017-12-04 06:36] VITALS: BP 142/77; PULSE 78
[2017-12-04] MEDS: Metoprolol(XL)Succ 100 MG Tablet PO (06:36)
[2017-12-04] MEDS: Aspirin 81 MG TAB.CHEW PO (07:51)
--- NOTE | 2017-12-04 12:53 | CASEMGMT ---
Insurance Clinical information faxed. Pending continued stay approval at this time. Auth#[id number] Alondra MENDEZ, FLEXBOARD OPERATOR
[2017-12-04 13:44] VITALS: BP 136/65; PULSE 74; RESP 18; TEMP 36.9; O2SAT 96
--- NOTE | 2017-12-04 13:45 | NURSING ---
PT CALLED THIS NURSE TO ROOM. PT COMPLANED OF FEELING LIGHT HEADED,DIZZY IN THERAPY. PT DENIED CHEST PAINS AND SHORT OF BREATH. VITALS DONE. REPORTED TO MARTAH OSUNA
[2017-12-04 15:29] VITALS: BP 128/65; PULSE 67; RESP 20; TEMP 37.2; O2SAT 90
[2017-12-04] MEDS: Atorvastatin Calcium 40 MG Tablet PO (21:00)
[2017-12-04] MEDS: MELATONIN 3 MG TABLET PO (21:00)
[2017-12-05 06:41] VITALS: BP 144/74; PULSE 64
[2017-12-05] MEDS: Metoprolol(XL)Succ 100 MG Tablet PO (06:41)
[2017-12-05] MEDS: Menthol/Lanolin/Calamine/Znox 113 GM Tube 1 APPLIC TOPICAL ×2 (06:41→20:51)
[2017-12-05] MEDS: FEBUXOSTAT 40 MG TABLET PO (06:42)
[2017-12-05] MEDS: Chlorthalidone 50 MG Tablet 25 MG PO (06:42)
[2017-12-05] MEDS: PARoxetine 10 MG Tablet PO (06:42)
[2017-12-05] MEDS: Nystatin Powder 15gm Bottle 1 APPLIC TOPICAL (06:42)
[2017-12-05] MEDS: Polyethylene Glycol 3350 17 GM PACKET PO (06:43)
[2017-12-05] MEDS: APIXABAN 5 MG TABLET PO ×2 (06:43→17:00)
[2017-12-05] MEDS: Acetaminophen 500 MG Tablet 1000 MG PO ×2 (08:05→16:59)
[2017-12-05] MEDS: Aspirin 81 MG TAB.CHEW PO (08:05)
--- NOTE | 2017-12-05 10:50 | CASEMGMT ---
Plan of care meeting held. Resident present as well as resident sister. No discharge date set at this time. Resident is pending continued stay approval at [facility] Resident to continue with further care and treatment on the Transitional Care Unit. Resident unsure of discharge plan at this time as resident is unable to return home with [id number] due to [id number] being not open to resident discharging back there. Resident is interested in an assisted living setting. This medical social worker giving resident a list of assisted livings in the area and encouraging resident and resident sister to beginning looking into what options resident would like has a discharge plan. A list of skilled nursing facilities was also given to resident. Support given. This medical social worker to continue to follow with further discharge planning and support. Will continue to follow. Alondra MENDEZ, BARREL HEADER
[2017-12-05] MEDS: oxyCODONE 5 MG Tablet PO ×2 (13:03→20:51)
--- NOTE | 2017-12-05 14:25 | NURSING ---
Addendum entered by Fern Stephens 12/05/17 14:52: Per Clare at Dr. Kurtz's office, she will obtain precert for CTA abd/pelvis, TCU pathology secretary to schedule procedure, Clare will call tomorrow and let us know about the precert Original Note: Pt returned from appt with Dr. Marmolejo this morning, Dr. Drummond consulted for rt 3rd toe, CTA order faxed to [place], will need precert d/t insurance, precert started. Dr. Knutson aware of new orders. Pt also in pain after therapy, stating that the Tylenol is not effective, Dr. Knutson aware. N.O. for Oxyir 5mg Q6H PRN.
[2017-12-05 16:00] VITALS: BP 135/70; PULSE 72; RESP 18; TEMP 36.9; O2SAT 92
--- NOTE | 2017-12-05 17:57 | PCM.HP.STD ---
Problem List (1) Claudication of both lower extremities Status: Chronic (2) Embolic disease of toe Status: Acute (3) Blue toe syndrome of both lower extremities Status: Acute (4) Toe pain, right Status: Chronic History of Present Illness Date of Admission: 12/05/17 Chief Complaint: Blue painful toe right foot more than left foot The patient is a 77 year old F with significant past medical history of atrial fibrillation, cardiac disease status post CABG, peripheral vascular disease, history of pulmonary embolism on chronic anticoagulation, recent upper GI bleed, history of fall, insomnia and debility, iron deficiency, history of myocardial infarction, depression was seen bedside this evening for blue toes. Her right third toe is the most painful. She is a questionable historian at this time and thinks that the color change started a couple of months ago. She relates she has seen a vascular surgeon [facility] at the [facility] and recently saw Dr. Marmolejo as an inpatient who plans to perform a procedure this upcoming week. She denies calf pain. She denies foot trauma or change in shoe gear. She denies drainage or odors. She denies self treatment or dressing care to the toes. Past Medical History Past Medical History (Chronic Problems): Chronic Problems (Last Updated 10/16/17 @ 13:28 by Tiff Paul) Mural thrombus of heart (Chronic) Depression (Chronic) 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) CABG x 4 DEMPSEY- LAD, Free JAVIER-OM, SVG-PDA and Disatl RCA Atherosclerotic heart disease of [place] coronary artery without angina pectoris (Chronic) Atrial fibrillation with rapid ventricular response (Chronic) Hyperlipidemia (Chronic) Hyperkalemia (Chronic) Gout (Chronic) Anxiety (Chronic) Aortic mural thrombus (Chronic) Insomnia (Chronic) Carotid artery stenosis (Chronic) PAOD (peripheral arterial occlusive disease) (Chronic) Toe pain, right (Chronic) DVT (deep venous thrombosis) (Chronic) Pulmonary emboli (Chronic) Fall (Chronic) Debility (Chronic) Bilateral deep vein thromboses (Chronic) Hypokalemia (Chronic) Morbid obesity (Chronic) Iron deficiency anemia (Chronic) CAD (coronary artery disease) (Chronic) Morbid obesity with BMI of 40.0-44.9, adult (Chronic) Non-STEMI (non-ST elevated myocardial infarction) (Chronic) Dyspnea (Chronic) Orthopnea (Chronic) Hypertension (Chronic) Hypercholesterolemia (Chronic) Descending aorta atherosclerotic plaquin (Chronic) Unstable angina (Chronic) Allergies Latex, Natural Rubber Allergy (Verified 11/23/17 03:58) Itching Sulfa (Sulfonamide Antibiotics) Allergy (Verified 11/23/17 03:58) Other Home Medications: Ambulatory Orders Medication Instructions Recorded Aspirin [Aspirin, Baby] 81 mg PO DAILY@0800 07/25/17 Melatonin 3 mg PO QHS PRN 09/11/17 Metoprolol(XL)Succ [Toprol Xl 100 mg PO DAILY 09/11/17 (Beta Lokesh)] Paroxetine HCl 10 mg PO DAILY 09/11/17 allopurinol 300 mg tablet 100 mg PO QDAY 10/16/17 rosuvastatin 20 mg tablet 20 mg PO QDAY 10/16/17 Chlorthalidone 25 mg PO DAILY 12/01/17 Febuxostat [Uloric] 40 mg PO DAILY 12/01/17 Polyethylene Glycol 3350 [Miralax] 17 gm PO DAILY PRN 12/01/17 Rivaroxaban [Xarelto] 20 mg PO DAILY@0600 12/01/17 Surgical History: coronary bypass surgery - x 4. Psychiatric History: Anxiety, Depression, - - insomnia RN TRAUMA History: No pertinent RN TRAUMA history Lives: Alone Smoking Status: Former smoker Tobacco Use: Non-smoker Alcohol: None Drugs: None - *Family History Paternal History Items: No pertinent history Maternal History Items: No pertinent history Review of Systems Constitutional: Reports: Fatigue. Denies: Chills, Fever HEENT: Denies: Sore Throat Cardiovascular: Reports: Claudication. Denies: Chest Pain Respiratory: Denies: Shortness of Breath Gastrointestinal: Denies: Nausea, Vomiting Musculoskeletal: Reports: Foot Pain - Right. Denies: Leg Pain Skin: Reports: Skin Changes - Toes. Denies: Wounds Neurological: Reports: Balance problems - Previous falls, Incoordination Psychiatric: Reports: Depression Hematologic/ Lymphatic: Reports: Easy Bleeding VTE Information - Inpt Only VTE Present on Admission: No VTE Pharm Prophylaxis ordered?: Yes Patient Problems: Active and Suspected Problems (Last Updated 10/16/17 @ 13:28 by Tiff Paul) Upper GI bleed (Acute) Embolic disease of toe (Acute) Blue toe syndrome of both lower extremities (Acute) - Physical Exam General: Alert, Oriented x3, Cooperative, Lethargic HEENT: Atraumatic Extremities: Capillary Refill Less than 3 Seconds - Right foot digits 1, 2, 4, 5 and left foot 1, 2, 3, 4, 5. There does appear to be some blue and violaceous discoloration to the pulse of all the digits that has appropriate capillary refill time to the aforementioned toes is possibly consistent with digital venous congestion. However the right third distal toe at the pulp has a delayed capillary refill time of 6 seconds and it is darker and cool to the touch. There is no camacho gangrene however the long-term viability of this toe tip is to be determined., No Calf Tenderness - Negative Francis and Lofton sign bilateral, Diminished Peripheral Pulses - Nonpalpable PT and DP pulses bilateral, Edema - Bilateral lower extremities Skin: - - No open lesions, no erythema, streaking, no purulence, no interdigital maceration, no crepitus on palpation, no odor bilateral lower extremities. Her skin is hairless and atrophic bilateral Musculoskeletal: No Tenderness to Palpation of Joints or Extremities - No pain to palpate digital joints metatarsal phalangeal joint, midfoot, subtalar joint, ankle bilateral, Muscle Wasting, Tenderness - Pain to palpate distal right third toe tip plantar aspect, - - Compartments of the lower extremity remain soft. Her active range of motion of the digits and ankle in all directions is functional and notable. Neurological: - - Lack of epicritic sensation to light touch is noted bilateral toes Psych/Mental Status: Normal Affect, Appropriate Vital Signs Temp Pulse Resp BP Pulse Ox 98.4 F 72 18 135/70 H 92 12/05/17 16:00 12/05/17 16:00 12/05/17 16:00 12/05/17 16:00 12/05/17 16:00 Oxygen Delivery Method Room Air Weight: 107 kg Body Mass Index (BMI) 38.0 Intake and Output for Last 24 Hours 12/03/17 12/04/17 12/05/17 23:59 23:59 23:59 Intake Total 1200 / 1200 1100 / 1100 480 / 480 Balance 1200 / 1200 1100 / 1100 480 / 480 Microbiology Past 72 Hours 12/03/17 15:45 Respiratory Panel (PCR) - Final Mucosa - Nasopharyngeal Rhinovirus Assessment/Plan Active and Suspected Problems (Last Updated 10/16/17 @ 13:28 by Tiff Paul) Upper GI bleed (Acute) Embolic disease of toe (Acute) Blue toe syndrome of both lower extremities (Acute) Blue toes secondary to peripheral vascular disease versus embolic shower secondary to atrial fibrillation versus potential digital venous congestion Right third toe pain Pre-gangrene right third toe will be monitored Multiple comorbidities noted I reviewed and discussed the case with the patient today. She has discolored toes and no acute signs of infection bilateral lower extremity. I reviewed her diagnostic data. Her white blood cell count is 11.9 and she has stable vitals. I ordered a foot x-ray and results are pending to rule out any acute unknown injuries. Her previous noninvasive vascular studies were reviewed including a right ankle-brachial index of 0.76 and left is 0.96 from 2017. It is noted that vascular surgeon, Dr. Marmolejo, is on consultation and tentatively has her scheduled for a CTA of the abdominal and pelvic area on December 07 pending the precertification. In the meantime I recommend she continues on her current Eliquis. I ordered her topical Nitro-Bid to apply twice daily to the distal third right toe to increase vasodilation to this area improved salvageability. To avoid wearing shoes that press on his toe. A surgical shoe was ordered and she can heel weight-bear. She is reassured no infection is noted today and I do not recommend a dressing. Medical management, DVT prophylaxis, and pain control per primary team is appreciated. Thank you for the consultation. I will continue to follow her while in house. Please do not hesitate to call if you have any questions. Sherrell Frank, [facility] [phone]
--- NOTE | 2017-12-05 18:45 | NURSING ---
Dr. Knutson aware of resp panel, encourage fluids. Pt aware of results as well. Dr. Hardinone here to see pt tonight, nitrobid started BID for rt third toe.
[2017-12-05] MEDS: Atorvastatin Calcium 40 MG Tablet PO (20:52)
[2017-12-05 20:53] VITALS: BP 123/56; PULSE 79
[2017-12-05] MEDS: Nitroglycerin Oint 1 INCH PACKET 0.5 INCH TRANSDERM. (20:53)
[2017-12-05] MEDS: MELATONIN 3 MG TABLET PO (22:27)
[2017-12-05 23:04] VITALS: PULSE 78; RESP 18; O2SAT 96
[2017-12-06] MEDS: Menthol/Lanolin/Calamine/Znox 113 GM Tube 1 APPLIC TOPICAL ×2 (05:28→21:21)
[2017-12-06] MEDS: APIXABAN 5 MG TABLET PO ×2 (05:29→17:55)
[2017-12-06] MEDS: Nystatin Powder 15gm Bottle 1 APPLIC TOPICAL ×2 (05:30→21:22)
[2017-12-06] MEDS: Chlorthalidone 50 MG Tablet 25 MG PO (05:31)
[2017-12-06] MEDS: PARoxetine 10 MG Tablet PO (05:35)
[2017-12-06] MEDS: FEBUXOSTAT 40 MG TABLET PO (05:36)
[2017-12-06 05:47] VITALS: BP 150/78; PULSE 86
[2017-12-06] MEDS: Nitroglycerin Oint 1 INCH PACKET 0.5 INCH TRANSDERM. ×2 (05:47→21:17)
[2017-12-06 05:48] VITALS: BP 150/78; PULSE 86
[2017-12-06] MEDS: Metoprolol(XL)Succ 100 MG Tablet PO (05:48)
[2017-12-06] MEDS: oxyCODONE 5 MG Tablet PO ×3 (05:55→21:21)
[2017-12-06] MEDS: Aspirin 81 MG TAB.CHEW PO (07:59)
--- NOTE | 2017-12-06 08:30 | RAD_ITS ---
STUDY: X-RAY - RIGHT FOOT CLINICAL: Female, 77 years old. Redness the right foot. TECHNIQUE: 3 view(s) of the foot. COMPARISON: None. FINDINGS: There is an enthesophyte involving the posterior superior calcaneus at the site of insertion of the Achilles tendon. Plantar spur. Normal visualized subtalar, talonavicular, calcaneocuboid, tarsal and tarsometatarsal articulations. Normal metatarsi. There is degenerative arthrosis of the metatarsophalangeal joint of the hallux . There is evidence of a periarticular erosion. Gout should be ruled out. Normal tibial and fibular sesamoid bones. Normal interphalangeal joint of the great toe. Normal phalanges of the great toe. Normal second through fifth metatarsophalangeal joints. Normal interphalangeal joints and phalanges of the lesser toes. Diffuse soft tissue swelling. RAD/Foot min 3 Views IMPRESSION: Diffuse soft tissue swelling. Degenerative changes at the first metatarsophalangeal joint. Gout should be ruled out. Calcaneal spurs. Electronically Signed: Milton Shetty MD at 9:33 EST Tel [phone], Service support ,
[2017-12-06 15:34] VITALS: BP 118/63; PULSE 77; RESP 16; TEMP 36.9; O2SAT 93
--- NOTE | 2017-12-06 17:09 | CASEMGMT ---
Insurance Continued stay approved with next update due on 12/10/17. Auth#[id number] Alondra MENDEZ, CARD PUNCHER
--- NOTE | 2017-12-06 18:41 | NURSING ---
Pt has c/o dizziness, diaphoresis and decreased HR during therapy. Dr. Knutson made aware, NO to decrease metoprolol to 50mg daily.
[2017-12-06 21:17] VITALS: BP 156/82; PULSE 87
[2017-12-06] MEDS: Atorvastatin Calcium 40 MG Tablet PO (21:21)
[2017-12-06] MEDS: MELATONIN 3 MG TABLET PO (21:21)
[2017-12-06 22:00] VITALS: PULSE 87; RESP 18; O2SAT 92
[2017-12-07] MEDS: Menthol/Lanolin/Calamine/Znox 113 GM Tube 1 APPLIC TOPICAL ×2 (04:57→20:30)
[2017-12-07] MEDS: APIXABAN 5 MG TABLET PO ×2 (04:58→20:29)
[2017-12-07] MEDS: Chlorthalidone 50 MG Tablet 25 MG PO (04:59)
[2017-12-07] MEDS: Nystatin Powder 15gm Bottle 1 APPLIC TOPICAL ×2 (05:01→20:33)
[2017-12-07] MEDS: Polyethylene Glycol 3350 17 GM PACKET PO (05:02)
[2017-12-07] MEDS: PARoxetine 10 MG Tablet PO (05:02)
[2017-12-07] MEDS: FEBUXOSTAT 40 MG TABLET PO (05:03)
[2017-12-07 05:11] VITALS: BP 151/59; PULSE 87
[2017-12-07] MEDS: Metoprolol(XL)Succ 50 MG Tablet PO (05:11)
[2017-12-07 05:12] VITALS: BP 151/59; PULSE 87
[2017-12-07] MEDS: Nitroglycerin Oint 1 INCH PACKET 0.5 INCH TRANSDERM. ×2 (05:12→18:25)
[2017-12-07] MEDS: Aspirin 81 MG TAB.CHEW PO (08:37)
[2017-12-07] MEDS: oxyCODONE 5 MG Tablet PO ×2 (10:17→20:29)
[2017-12-07 10:29] VITALS: BP 137/66; PULSE 89; RESP 18; TEMP 36.9; O2SAT 96
[2017-12-07] MEDS: MethylPREDNISolone DosePak 4 MG BOX PO ×3 (12:46→20:31)
--- NOTE | 2017-12-07 13:45 | CASEMGMT ---
BIMS and PHQ9 interview for MDS completed on this date. ANDREA Garland
--- NOTE | 2017-12-07 15:26 | MDS.RN ---
Pain interview for LAURA 12/08/17 completed.
--- NOTE | 2017-12-07 15:32 | CT_ITS ---
STUDY: CTA OF THE ABDOMINAL AORTA AND BILATERAL LOWER EXTREMITIES REASON FOR EXAM: Female, 77 years old. Atherosclerosis with gangrene/discolored right foot and leg pain. RADIATION DOSAGE (If Supplied By Facility): CTDIvol = ( 8.68 ) mGy, DLP = ( 1603.73 ) mGycm TECHNIQUE: Axial CT angiography multi-detector data acquisition was obtained from the diaphragm to the feet following intravenous administration of 100 ml of Isovue 370 contrast. Axial images and MIP images were reconstructed from the axial data set. Post-processing of the angiographic images was performed, with multiplanar reformation and 3D reconstruction. Individualized dose optimization techniques were used for this CT. TECHNICAL QUALITY: Good COMPARISON: None. Descriptors of Narrowing: None (0%) Mild (< 50%) Moderate (50-70%) Severe (70-90%) Subtotal/Total Occlusion (90-100%) Non-Evaluable (technically non-diagnostic FINDINGS: Abdominal aorta: Extensive irregular circumferential noncalcified plaque and mild calcified plaque. Negative for substantial reduction in the flow lumen or aneurysmal dilatation. Celiac and superior mesenteric arteries: No demonstrated narrowing. Inferior mesenteric artery: Occluded inferior mesenteric artery which fills distally by collateral artery from the left abdomen. Right renal artery(arteries): Limited. Left renal artery(arteries): Limited. 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 Mild plaque. Negative for stenosis. Right external iliac artery: No demonstrated narrowing. Right internal iliac artery: Less than 50% narrowing. Left common iliac artery: Mild to moderate plaque less than 50% narrowing. Left external iliac artery: No demonstrated narrowing. Left internal iliac artery: Mild plaque with less than 50% narrowing. RIGHT LOWER EXTREMITY Right common femoral artery: Mild plaque without significant narrowing Right profundus femoris: No demonstrated narrowing. Right superficial femoral: Occluded lower segment with reconstitution above the knee. Length of the occluded segment is 4.8 cm. The occlusion occurs 16 cm above the knee joint. Right popliteal artery: No demonstrated narrowing. Right tibioperoneal trunk: No demonstrated narrowing. Right anterior tibial artery: Patent to the foot Right posterior tibial artery: Patent to the foot Right peroneal artery: Occluded above the ankle. LEFT LOWER EXTREMITY Left common femoral artery: Minimal plaque without significant narrowing Left profundus femoris: No demonstrated narrowing. Left superficial femoral: Minimal plaque noted narrowing Left popliteal artery: No demonstrated narrowing. Left tibioperoneal trunk: No demonstrated narrowing. Left anterior tibial artery: Patent to the foot. Left posterior tibial artery: Patent to the ankle Left peroneal artery: Occluded above the ankle. Stone packed gallbladder. Bilateral renal cysts. Minimal diverticulosis. 5.8 cm cyst of the right pelvis. Status post hysterectomy. Minimal fatty umbilical hernia. CT/CTA Abd w/Runoff W/WO Contrast IMPRESSION: Extensive irregular circumferential noncalcified and calcified plaque of the aorta without aneurysm or substantial narrowing of the lumen. Negative for a stenosis of the celiac or superior mesenteric artery. 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 An adequate exam for assessment of renal artery stenosis. 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 Mild plaque of the common and internal iliacs bilaterally with less than 50% narrowing. External iliac arteries without plaque or stenosis. Right lower extremity: 4.8 cm occluded section of the distal superficial femoral artery occurring 16 cm above the knee. Reconstitution above the knee. The right anterior tibial and peroneal artery are patent to the foot. The posterior tibial artery is occluded above the ankle. Left lower extremity: No significant stenotic areas in the common femoral, profunda artery, superficial femoral artery or popliteal artery. The anterior tibial artery is patent to the foot. The peroneal artery is patent to the ankle. The posterior tibial artery is occluded above the ankle. Incidental findings include a stone packed gallbladder, multiple bilateral simple renal cysts, minimal diverticulosis and a 5.8 cm cyst of the right pelvis status post hysterectomy. Minimal fatty umbilical hernia. Electronically Signed: Akilah Bell MD at 20:03 EST , Service support ,
[2017-12-07 16:10] VITALS: BP 121/52; PULSE 82; RESP 18; TEMP 36.2; O2SAT 94
[2017-12-07 18:25] VITALS: BP 125/66; PULSE 45
--- NOTE | 2017-12-07 18:32 | NURSING ---
Dr. Drummond here to see pt
[2017-12-07] MEDS: Acetaminophen 500 MG Tablet 1000 MG PO (19:10)
--- NOTE | 2017-12-07 19:49 | PCM.PROGNOTE ---
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 She has no new complaints. States it has not changed. She did get CT angio today. Objective: right foot xrays, noted djd to the 1st MTPJ, no evidence of fracture or dislocations. No acute osseous pathology noted. - Physical Exam General: Alert, Oriented x3, Cooperative, No apparent distress Extremities: - - Capillary Refill Less than 3 Seconds - Right foot digits 1, 2, 4, 5 and left foot 1, 2, 3, 4, 5. There is chronic blue and violaceous discoloration to the distal aspect of all the digits that has appropriate capillary refill time to the aforementioned toes is possibly consistent with digital venous congestion. However the right third distal toe at the pulp has a delayed capillary refill time of 6 seconds and it continues to be darker and cool to the touch; the long-term viability of this toe tip is still to be determined., No Calf Tenderness - Negative Francis and Lofton sign bilateral, Diminished Peripheral Pulses - Nonpalpable PT and DP pulses bilateral, Edema - Bilateral lower extremities. No open lesions, no cellulitis, no blistering, no visible abscess, no maloder, no flucutance, streaking, no purulence, no interdigital maceration, no crepitus on palpation, bilateral lower extremities; skin is hairless and atrophic bilateral Vital Signs Temp Pulse Resp BP Pulse Ox 97.1 F L 45 L 18 125/66 H 94 12/07/17 16:10 12/07/17 18:25 12/07/17 16:10 12/07/17 18:25 12/07/17 16:10 Oxygen Delivery Method Room Air Weight: 107 kg Body Mass Index (BMI) 38.0 Intake and Output for Last 24 Hours 12/05/17 12/06/17 12/07/17 23:59 23:59 23:59 Intake Total 600 / 600 840 / 840 1080 / 1080 Balance 600 / 600 840 / 840 1080 / 1080 Microbiology Past 72 Hours 12/03/17 15:45 Respiratory Panel (PCR) - Final Mucosa - Nasopharyngeal Rhinovirus Assessment/Plan Active and Suspected Problems (Last Updated 10/16/17 @ 13:28 by Tiff Paul) Upper GI bleed (Acute) Embolic disease of toe (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 She has discolored toes and no acute signs of infection bilateral lower extremity. The toes are stable at this time. Right foot xrays reviewed. Her previous noninvasive vascular studies were reviewed including a right ankle-brachial index of 0.76 and left is 0.96 from 2017. Patient received CT angio today, and Dr. Marmolejo is on consultation, will await further recommendations per Dr. Marmolejo. Continue with topical Nitro-Bid to apply twice daily to the distal third right toe to increase vasodilation to this area improved salvageability. Continue with offloading surgical shoe right foot, and she can heel weight-bear. Medical management, DVT prophylaxis, and pain control per primary team is appreciated. Podiatry will continue to follow.
[2017-12-07 19:50] LABS: Bacteria 0 SEEN /hpf (None Seen); Mucous, Urine 0 SEEN /hpf (<or=2+); Squamous Epithelial Cells - UA 0 SEEN /hpf (5-10); White Blood Cells 0 SEEN /hpf (0-5)
[2017-12-07 19:55] LABS: Color, Urine Yellow (Yellow); Glucose, Dipstick Normal (Normal); Ketone-Dipstick Negative (Negative); Leukocyte Esterase-Dipstick Negative /ul (Negative); Nitrite-Dipstick Negative (Negative); Occult Blood-Urine 50 /ul (Negative); Protein-Dipstick Negative (Negative); Urine Bilirubin Dipstick Negative (Negative); Urine Clarity Clear (Clear); Urine Urobilinogen Normal (Normal)
[2017-12-07 20:02] LABS: Red Blood Cells-Urine 0-5 SEEN /hpf (0-5)
[2017-12-07] MEDS: Atorvastatin Calcium 40 MG Tablet PO (20:29)
[2017-12-07 20:30] VITALS: PULSE 80; RESP 16; O2SAT 94
[2017-12-07] MEDS: MELATONIN 3 MG TABLET PO (20:31)
[2017-12-08] VITALS (7 sets, daily range): BP systolic 141–160; BP diastolic 76–111; PULSE 81–97; RESP 16–20; TEMP 36.8; O2SAT 93–94
[2017-12-08] MEDS: Menthol/Lanolin/Calamine/Znox 113 GM Tube 1 APPLIC TOPICAL ×2 (05:58→21:05)
[2017-12-08] MEDS: Nitroglycerin Oint 1 INCH PACKET 0.5 INCH TRANSDERM. ×2 (05:59→17:18)
[2017-12-08] MEDS: Polyethylene Glycol 3350 17 GM PACKET PO (05:59)
[2017-12-08] MEDS: Nystatin Powder 15gm Bottle 1 APPLIC TOPICAL ×2 (06:06→21:06)
[2017-12-08] MEDS: APIXABAN 5 MG TABLET PO ×2 (06:06→17:13)
[2017-12-08] MEDS: Chlorthalidone 50 MG Tablet 25 MG PO (06:07)
[2017-12-08] MEDS: FEBUXOSTAT 40 MG TABLET PO (06:07)
[2017-12-08] MEDS: PARoxetine 10 MG Tablet PO (06:07)
[2017-12-08] MEDS: Metoprolol(XL)Succ 50 MG Tablet PO (06:09)
[2017-12-08] MEDS: Aspirin 81 MG TAB.CHEW PO (08:02)
[2017-12-08] MEDS: Acetaminophen 500 MG Tablet 1000 MG PO ×2 (08:02→18:38)
[2017-12-08] MEDS: MethylPREDNISolone DosePak 4 MG BOX PO ×2 (08:03→11:15)
--- NOTE | 2017-12-08 09:35 | NURSING ---
DR MARES NOTIFIED OF URINE RESULTS, NNO'S
[2017-12-08] MEDS: oxyCODONE 5 MG Tablet PO ×2 (15:05→21:06)
--- NOTE | 2017-12-08 16:53 | NURSING ---
Addendum entered by Harriet Monson 12/08/17 17:03: dr knutson notified of pt c/o feels like a wall is pushing me back When assisting pt to standing position this is when she feels she is being pushed backwards. New order to DC medrol dose jaelyn and check orthos Original Note: Pt blood pressure currently 153/100 manually. Pt unable to stand to ambulate to restroom, This nurse notified Harriet THOMAS. Harriet THOMAS assisted this nurse with getting Pt to restroom. Pt still unsteady at this time. Harriet THOMAS notified of Pt condition and will update Dr. Knutson
[2017-12-08] MEDS: Atorvastatin Calcium 40 MG Tablet PO (21:06)
--- NOTE | 2017-12-08 22:44 | NURSING ---
Orthostatic bps obtained per orders, negative. Bps were lying, KRISH 150/76 apical 81, sitting, KRISH 157/82 apical 83 and standing, KRISH 141/87 apical 97. RN aware.
[2017-12-09] MEDS: APIXABAN 5 MG TABLET PO ×2 (04:40→16:52)
[2017-12-09] MEDS: Menthol/Lanolin/Calamine/Znox 113 GM Tube 1 APPLIC TOPICAL ×2 (04:40→21:13)
[2017-12-09] MEDS: Nystatin Powder 15gm Bottle 1 APPLIC TOPICAL ×2 (04:41→21:13)
[2017-12-09] MEDS: Polyethylene Glycol 3350 17 GM PACKET PO (04:41)
[2017-12-09] MEDS: Chlorthalidone 50 MG Tablet 25 MG PO (04:41)
[2017-12-09] MEDS: PARoxetine 10 MG Tablet PO (04:43)
[2017-12-09] MEDS: oxyCODONE 5 MG Tablet PO ×2 (04:43→19:04)
[2017-12-09] MEDS: FEBUXOSTAT 40 MG TABLET PO (04:44)
[2017-12-09 04:45] VITALS: PULSE 82
[2017-12-09] MEDS: Metoprolol(XL)Succ 50 MG Tablet PO (04:45)
[2017-12-09 04:46] VITALS: BP 142/83; PULSE 83
[2017-12-09] MEDS: Nitroglycerin Oint 1 INCH PACKET 0.5 INCH TRANSDERM. ×2 (04:46→16:52)
[2017-12-09 06:28] LABS: Absolute Lymphocyte Count 1.99 X10^3/ul (0.83-4.51); Absolute Neutrophil Count 9.4 X10^3/uL (2.0-7.7); Basophil# 0.01 X10^3/uL; Basophil% 0.1 % (0-1); Eosinophil# 0.05 X10^3/uL; Eosinophils% 0.4 % (0-5); Hematocrit 31.7 % (37-47); Hemoglobin 9.7 g/dl (12.0-15.0); Lymphocyte # 1.99 X10^3/ul (4.0); Lymphocyte % 16.1 % (19-41); Mean Corp Hgb Conc 30.6 g/gl (32-36); Mean Corpuscular Hgb 28.7 pg (27.0-32.0); Mean Corpuscular Volume 93.8 fL (81-99); Mean Platelet Vol. 9.8 fl (6.2-12.0); Monocyte# 0.82 X10^3/uL; Monocyte% 6.6 % (0-10); Neutrophil # 9.42 X10^3/uL (2.7-7.7); Neutrophil % 76.4 % (47-70); Platelet Count 421 K/mm3 (150-450); RBC Distribution Width CV 15.8 % (11.6-14.6); Red Blood Count 3.38 M/mm3 (4.2-5.4); White Blood Count 12.3 K/mm3 (4.4-11.0)
[2017-12-09 06:33] LABS: POSITIVE COUNT NO; POSITIVE DIFFERENTIAL NO; POSITIVE MORPHOLOGY NO
[2017-12-09 06:45] LABS: Anion Gap 7 (5-15); BUN 44 mg/dL (7-18); BUN/Creat Ratio 29.3 RATIO (10-20); Calcium,Total 9.6 mg/dL (8.5-10.1); Chloride 101 mmol/L (98-107); EST Glomerular Filtration Rate 36 mL/min (>60); Est Glom Filt Rate - Afr Amer 44 mL/min (>60); Estimated Creatinine Clearance 30.34 ml/min; Glucose 96 mg/dL (70-110); Potassium 4.1 mmol/L (3.5-5.1); Sodium Level 139 mmol/L (136-145)
[2017-12-09] MEDS: Aspirin 81 MG TAB.CHEW PO (07:40)
--- NOTE | 2017-12-09 08:00 | NURSING ---
DR MARES NOTIFIED OF PT ORTHOSTATS FROM LASTNIGHT. NNO'S. PT DOING BETTER THIS AM, NOT WEAK, AMBULATED TO BR. WILL MONITOR THROUGHOUT DAY
[2017-12-09 10:00] VITALS: PULSE 86; RESP 18; O2SAT 97
[2017-12-09] MEDS: Tuberculin,Purif.prot.deriv. 50 TU/ML Vial 5 ML ID (11:24)
[2017-12-09 16:00] VITALS: BP 160/91; PULSE 75; RESP 18; TEMP 36.6; O2SAT 93
[2017-12-09] MEDS: Atorvastatin Calcium 40 MG Tablet PO (21:14)
[2017-12-10 06:00] VITALS: BP 161/90; PULSE 75; RESP 20; TEMP 36.5; O2SAT 95
[2017-12-10] MEDS: Menthol/Lanolin/Calamine/Znox 113 GM Tube 1 APPLIC TOPICAL ×2 (06:05→20:40)
[2017-12-10] MEDS: APIXABAN 5 MG TABLET PO ×2 (06:06→19:23)
[2017-12-10] MEDS: Chlorthalidone 50 MG Tablet 25 MG PO (06:06)
[2017-12-10 06:07] VITALS: BP 152/90; PULSE 75
[2017-12-10] MEDS: Metoprolol(XL)Succ 50 MG Tablet PO (06:07)
[2017-12-10] MEDS: PARoxetine 10 MG Tablet PO (06:07)
[2017-12-10] MEDS: FEBUXOSTAT 40 MG TABLET PO (06:07)
[2017-12-10 06:08] VITALS: BP 152/90; PULSE 75
[2017-12-10] MEDS: Nitroglycerin Oint 1 INCH PACKET 0.5 INCH TRANSDERM. ×2 (06:08→19:23)
[2017-12-10] MEDS: Nystatin Powder 15gm Bottle 1 APPLIC TOPICAL ×2 (06:09→20:40)
[2017-12-10 06:30] VITALS: PULSE 90; RESP 20; O2SAT 95
[2017-12-10] MEDS: Iron Polysaccharide Complex 150 MG CAPSULE PO (08:37)
[2017-12-10] MEDS: Aspirin 81 MG TAB.CHEW PO (08:37)
[2017-12-10] MEDS: oxyCODONE 5 MG Tablet PO ×2 (08:38→20:40)
--- NOTE | 2017-12-10 12:45 | NURSING ---
Per Anita, medical writer for Dr. Marmolejo, CTA of abd/legs faxed to Dr. Santiago office for review, will let us know if any new orders or follow up necessary.
--- NOTE | 2017-12-10 12:58 | CASEMGMT ---
Insurance Clinical information faxed. Pending continued stay approval at this time. Auth#[id number] Alondra MENDEZ, DEBT COLLECTION SPECIALIST
[2017-12-10 15:34] VITALS: BP 124/54; PULSE 75; RESP 18; TEMP 36.9; O2SAT 95
[2017-12-10] MEDS: Atorvastatin Calcium 40 MG Tablet PO (20:40)
[2017-12-11] MEDS: APIXABAN 5 MG TABLET PO ×2 (05:03→17:05)
[2017-12-11] MEDS: Menthol/Lanolin/Calamine/Znox 113 GM Tube 1 APPLIC TOPICAL ×2 (05:03→21:00)
[2017-12-11] MEDS: Chlorthalidone 50 MG Tablet 25 MG PO (05:04)
[2017-12-11] MEDS: oxyCODONE 5 MG Tablet PO ×2 (05:05→21:00)
[2017-12-11 05:06] VITALS: BP 124/72; PULSE 76
[2017-12-11] MEDS: Nitroglycerin Oint 1 INCH PACKET 0.5 INCH TRANSDERM. ×2 (05:06→21:00)
[2017-12-11] MEDS: PARoxetine 10 MG Tablet PO (05:06)
[2017-12-11] MEDS: FEBUXOSTAT 40 MG TABLET PO (05:06)
[2017-12-11 05:07] VITALS: BP 124/72; PULSE 76
[2017-12-11] MEDS: Metoprolol(XL)Succ 50 MG Tablet PO (05:07)
[2017-12-11] MEDS: Nystatin Powder 15gm Bottle 1 APPLIC TOPICAL ×2 (05:07→21:00)
[2017-12-11] MEDS: Iron Polysaccharide Complex 150 MG CAPSULE PO (08:08)
[2017-12-11] MEDS: Aspirin 81 MG TAB.CHEW PO (08:08)
--- NOTE | 2017-12-11 12:18 | CASEMGMT ---
Insurance Continued approved with the next update due on 12/14/17. Auth#[id number] Alondra MENDEZ, ARIEL
[2017-12-11 15:43] VITALS: BP 143/66; PULSE 78; RESP 16; TEMP 36.6; O2SAT 93
[2017-12-11 21:00] VITALS: BP 134/71; PULSE 77
[2017-12-11] MEDS: Atorvastatin Calcium 40 MG Tablet PO (21:00)
[2017-12-11 21:08] VITALS: PULSE 79; RESP 18; O2SAT 96
[2017-12-12] MEDS: APIXABAN 5 MG TABLET PO ×2 (05:22→18:32)
[2017-12-12] MEDS: Menthol/Lanolin/Calamine/Znox 113 GM Tube 1 APPLIC TOPICAL ×2 (05:22→21:21)
[2017-12-12] MEDS: Nystatin Powder 15gm Bottle 1 APPLIC TOPICAL ×2 (05:23→23:35)
[2017-12-12] MEDS: Chlorthalidone 50 MG Tablet 25 MG PO (05:23)
[2017-12-12 05:24] VITALS: BP 128/71; PULSE 64
[2017-12-12] MEDS: oxyCODONE 5 MG Tablet PO (05:24)
[2017-12-12] MEDS: Nitroglycerin Oint 1 INCH PACKET 0.5 INCH TRANSDERM. ×2 (05:24→17:29)
[2017-12-12 05:25] VITALS: BP 128/71; PULSE 64
[2017-12-12] MEDS: FEBUXOSTAT 40 MG TABLET PO (05:25)
[2017-12-12] MEDS: Metoprolol(XL)Succ 50 MG Tablet PO (05:25)
[2017-12-12] MEDS: PARoxetine 10 MG Tablet PO (05:26)
[2017-12-12] MEDS: Acetaminophen 500 MG Tablet 1000 MG PO (09:16)
[2017-12-12] MEDS: Aspirin 81 MG TAB.CHEW PO (09:18)
[2017-12-12] MEDS: Iron Polysaccharide Complex 150 MG CAPSULE PO (09:18)
[2017-12-12] MEDS: oxyCODONE 5 MG Tablet 10 MG PO ×3 (10:33→21:24)
[2017-12-12 15:53] VITALS: BP 112/72; PULSE 74; RESP 18; TEMP 36.3; O2SAT 94
--- NOTE | 2017-12-12 17:02 | CHAPLAIN ---
Type of Pastoral Visit _x__ Initial Visit ___ Follow-up Visit ___ On-call Visit ___ General Patient Visit ___ Spiritual Assessment ___ Family Conference ___ Bereavement ___ Rapid Response ___ Code Blue ___ Other (describe below) Pastoral Care Referral From _x__ Patient ___ Family ___ Nurse ___ Physician ___ Double Spindle Shaper Operator ___ Service Correspondent ___ Other (describe below) Sacrament/Intervention _x__ Active listening ___ Anointing ___ Voodoo ___ Bereavement ___ Communion _x__ Roya exploration ___ ___ Life review _x__ Prayer ___ Reconciliation ___ Sacrament of Sick _x__ Supportive presence ___ Wedding ___ Other (describe below) Pastoral Comments patient tells me that she is discouraged about her progress and says that 'I'm not getting better'; pt admits that she prays but feels like God is not out there; pt says that she doesn't like admitting that but this is what I am feeling; pt tells me that she doesn't even know where she might go after rehab because where she was staying with family they don't want me to come back; given time to listen, explore feelings, process idea that God is still present but unseen, assurance that our team will be helpful; pt welcomed a prayer for her behalf; pt welcomed the visit and future visits
[2017-12-12 17:29] VITALS: BP 112/72; PULSE 85
[2017-12-12] MEDS: MELATONIN 3 MG TABLET PO (21:22)
[2017-12-12] MEDS: Atorvastatin Calcium 40 MG Tablet PO (21:22)
[2017-12-13 05:49] VITALS: BP 149/73; PULSE 72
[2017-12-13] MEDS: Metoprolol(XL)Succ 50 MG Tablet PO (05:49)
[2017-12-13] MEDS: Menthol/Lanolin/Calamine/Znox 113 GM Tube 1 APPLIC TOPICAL ×2 (05:50→20:55)
[2017-12-13] MEDS: APIXABAN 5 MG TABLET PO ×2 (05:51→17:56)
[2017-12-13 05:52] VITALS: BP 149/73; PULSE 72
[2017-12-13] MEDS: Nitroglycerin Oint 1 INCH PACKET 0.5 INCH TRANSDERM. ×2 (05:52→20:54)
[2017-12-13] MEDS: Nystatin Powder 15gm Bottle 1 APPLIC TOPICAL ×2 (05:52→21:07)
[2017-12-13] MEDS: Chlorthalidone 50 MG Tablet 25 MG PO (05:53)
[2017-12-13] MEDS: FEBUXOSTAT 40 MG TABLET PO (05:54)
[2017-12-13] MEDS: PARoxetine 10 MG Tablet PO (05:54)
[2017-12-13] MEDS: Acetaminophen 500 MG Tablet 1000 MG PO (06:02)
[2017-12-13] MEDS: Iron Polysaccharide Complex 150 MG CAPSULE PO (07:59)
[2017-12-13] MEDS: Aspirin 81 MG TAB.CHEW PO (07:59)
--- NOTE | 2017-12-13 10:20 | MDS.RN ---
Information for the mds was obtained from review of the clinical record, interview of resident, staff, and direct observation of resident's care.
[2017-12-13] MEDS: oxyCODONE 5 MG Tablet 10 MG PO ×2 (10:55→21:03)
[2017-12-13 15:20] VITALS: BP 156/78; PULSE 65; RESP 22; TEMP 36.6; O2SAT 96
[2017-12-13 20:54] VITALS: BP 142/75; PULSE 80
[2017-12-13] MEDS: MELATONIN 3 MG TABLET PO (20:56)
[2017-12-13] MEDS: Atorvastatin Calcium 40 MG Tablet PO (20:56)
[2017-12-13 21:10] VITALS: PULSE 80; RESP 20; O2SAT 92
[2017-12-13 23:26] VITALS: BP 142/75; PULSE 80; RESP 20; TEMP 36.9; O2SAT 92
[2017-12-14] MEDS: Menthol/Lanolin/Calamine/Znox 113 GM Tube 1 APPLIC TOPICAL ×2 (06:46→21:48)
[2017-12-14 06:48] VITALS: BP 146/85; PULSE 80
[2017-12-14] MEDS: Nitroglycerin Oint 1 INCH PACKET 0.5 INCH TRANSDERM. ×2 (06:48→17:31)
[2017-12-14] MEDS: Chlorthalidone 50 MG Tablet 25 MG PO (06:49)
[2017-12-14 06:50] VITALS: BP 146/85; PULSE 80
[2017-12-14] MEDS: FEBUXOSTAT 40 MG TABLET PO (06:50)
[2017-12-14] MEDS: Metoprolol(XL)Succ 50 MG Tablet PO (06:50)
[2017-12-14] MEDS: PARoxetine 10 MG Tablet PO (06:50)
[2017-12-14] MEDS: APIXABAN 5 MG TABLET PO ×2 (06:51→17:31)
[2017-12-14] MEDS: Nystatin Powder 15gm Bottle 1 APPLIC TOPICAL ×2 (06:51→21:49)
[2017-12-14] MEDS: oxyCODONE 5 MG Tablet 10 MG PO ×2 (07:16→12:47)
[2017-12-14] MEDS: Iron Polysaccharide Complex 150 MG CAPSULE PO (08:28)
[2017-12-14] MEDS: Aspirin 81 MG TAB.CHEW PO (08:28)
--- NOTE | 2017-12-14 11:09 | CASEMGMT ---
Brief interview for mental status (BIMS) and resident mood interview (PHQ-9) completed on this day. BIMS score 10/15. PHQ-9 score 02/05
--- NOTE | 2017-12-14 14:29 | CASEMGMT ---
Insurance Clinical information faxed. Pending continued stay approval at this time. Auth#[id number] Alondra MENDEZ, PRINTED CIRCUIT BOARD ASSEMBLY REPAIRER
[2017-12-14 16:00] VITALS: BP 118/73; PULSE 74; RESP 16; TEMP 37; O2SAT 93
[2017-12-14 17:31] VITALS: BP 134/67; PULSE 74
[2017-12-14 21:45] VITALS: BP 136/77; PULSE 64; RESP 20; TEMP 36.8; O2SAT 94
[2017-12-14] MEDS: Acetaminophen 500 MG Tablet 1000 MG PO (21:47)
[2017-12-14] MEDS: Atorvastatin Calcium 40 MG Tablet PO (21:49)
[2017-12-15] MEDS: oxyCODONE 5 MG Tablet 10 MG PO ×2 (06:04→17:26)
[2017-12-15] MEDS: PARoxetine 10 MG Tablet PO (06:05)
[2017-12-15] MEDS: APIXABAN 5 MG TABLET PO ×2 (06:05→17:26)
[2017-12-15] MEDS: Chlorthalidone 50 MG Tablet 25 MG PO (06:05)
[2017-12-15] MEDS: Menthol/Lanolin/Calamine/Znox 113 GM Tube 1 APPLIC TOPICAL ×2 (06:06→20:50)
[2017-12-15] MEDS: FEBUXOSTAT 40 MG TABLET PO (06:06)
[2017-12-15] MEDS: Polyethylene Glycol 3350 17 GM PACKET PO (06:06)
[2017-12-15] MEDS: Nystatin Powder 15gm Bottle 1 APPLIC TOPICAL ×2 (06:06→20:49)
[2017-12-15 06:22] VITALS: BP 175/88; PULSE 72
[2017-12-15] MEDS: Metoprolol(XL)Succ 50 MG Tablet PO (06:22)
[2017-12-15 07:00] VITALS: BP 175/88; PULSE 80
[2017-12-15] MEDS: Nitroglycerin Oint 1 INCH PACKET 0.5 INCH TRANSDERM. (07:00)
[2017-12-15] MEDS: Iron Polysaccharide Complex 150 MG CAPSULE PO (08:29)
[2017-12-15] MEDS: Aspirin 81 MG TAB.CHEW PO (08:29)
--- NOTE | 2017-12-15 09:47 | NURSING ---
Addendum entered by Fern Stephens 12/16/17 09:41: Per Dr. Frank d/c Nitrobid BID to third right toe Original Note: Dr. Frank here to see pt at this time
--- NOTE | 2017-12-15 10:37 | PCM.PROGNOTE ---
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 Her right third and fifth digit are the most painful and there has been some progressive demarcation over the past week. She denies fever, chill, nausea, vomiting. She is kept weight off of the toe site. She had a CTA performed last week. - Physical Exam General: Alert, Oriented x3, Cooperative Extremities: No Calf Tenderness, Diminished Peripheral Pulses, Edema - Bilateral lower extremities, - - Capillary refill time is delayed the left second toe at 4 seconds and the left hallux, third fourth and fifth toes have a capillary refill time of 2 seconds. The right hallux, second, fourth toe half capillary refill time less than 2 seconds in the fifth digit has capillary refill of 3 seconds. The right third distal digit does have gangrenous eschar changes with no capillary refill time and this is very tender to touch. Skin: Ulcer/ Wound - Right third distal digit now with eschar and fibrous base to the tip., - - Toenails bilateral 1, 2, 3, 4, 5 are elongated, thick, dystrophic, with subungual debris. All the nails are painful to touch and have incurvation at the medial and lateral borders. Musculoskeletal: Muscle Wasting, - - Dorsal contraction of lesser digits bilateral. No crepitus on palpation. The compartments of the foot remain soft bilateral. Palpation to all distal digits right 3 and 5 and left 1 and 2 are very painful to touch. Neurological: Sensory exam intact to light touch and pain Psych/Mental Status: Normal Affect, Appropriate Vital Signs Temp Pulse Resp BP Pulse Ox 98.2 F 80 20 H 175/88 H 94 12/14/17 21:45 12/15/17 07:00 12/14/17 21:45 12/15/17 07:00 12/14/17 21:45 Oxygen Delivery Method Room Air Weight: 107 kg Body Mass Index (BMI) 38.0 Intake and Output for Last 24 Hours 12/13/17 12/14/17 12/15/17 23:59 23:59 23:59 Intake Total 1140 / 1140 780 / 780 120 / 120 Balance 1140 / 1140 780 / 780 120 / 120 Assessment/Plan Active and Suspected Problems (Last Updated 10/16/17 @ 13:28 by Tiff Paul) Upper GI bleed (Acute) 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 She has discolored toes and no acute signs of infection bilateral lower extremity. The toes are stable at this time. Right foot xrays reviewed without any acute injury or infection. Her previous noninvasive vascular studies were reviewed including a right ankle-brachial index of 0.76 and left is 0.96 from 2017. Patient received CT angio today, and Dr. Marmolejo is on consultation, will await further recommendations per Dr. Marmolejo. Continue with offloading surgical shoe right foot, and she can heel weight-bear. The aforementioned digits are rubrous and I do not see any local signs of infection at this time; the patient was reassured. This will be monitored very close. Her right third toe is demarcating and gangrenous changes set and. She understands this may be addressed with local wound care however partial or full toe amputation may be considered in the future if lack of healing is noted. I recommend changing the dressing daily with Santyl: This order was placed. Medical management, DVT prophylaxis, and pain control per primary team is appreciated. Her toenails were also debrided with a nail nipper without incident in length and thickness; bilateral 1, 2, 3, 4, 5. She tolerated this. She understands these nail changes may be a result of trophic changes from previous growth center injuries or nail fungus. She elects to proceed with only palliative care at this time at this time in the transitional care unit and also as an outpatient at time of discharge. Podiatry will continue to follow on a weekly basis. Please not hesitate to call if you have any questions. Sherrell Frank, [facility] [phone]
[2017-12-15 16:00] VITALS: BP 133/67; PULSE 72; RESP 20; TEMP 36.6; O2SAT 95
[2017-12-15] MEDS: Senna/Docusate Sodium 1 Tablet 2 TABLET PO (17:30)
[2017-12-15] MEDS: Atorvastatin Calcium 40 MG Tablet PO (20:52)
[2017-12-15 22:00] VITALS: PULSE 76; RESP 18; O2SAT 95
[2017-12-16] MEDS: Menthol/Lanolin/Calamine/Znox 113 GM Tube 1 APPLIC TOPICAL ×2 (05:56→20:41)
[2017-12-16] MEDS: Polyethylene Glycol 3350 17 GM PACKET PO (05:56)
[2017-12-16 05:57] VITALS: BP 143/67; PULSE 71
[2017-12-16] MEDS: Nystatin Powder 15gm Bottle 1 APPLIC TOPICAL ×2 (05:57→20:13)
[2017-12-16] MEDS: Metoprolol(XL)Succ 50 MG Tablet PO (05:57)
[2017-12-16] MEDS: APIXABAN 5 MG TABLET PO ×2 (05:57→17:36)
[2017-12-16] MEDS: PARoxetine 10 MG Tablet PO (05:58)
[2017-12-16] MEDS: FEBUXOSTAT 40 MG TABLET PO (05:58)
[2017-12-16] MEDS: Senna/Docusate Sodium 1 Tablet 2 TABLET PO ×2 (05:58→17:36)
[2017-12-16] MEDS: Collagenase 30gm Tube 1 APPLIC TOPICAL (06:01)
[2017-12-16] MEDS: Chlorthalidone 50 MG Tablet 25 MG PO (06:05)
[2017-12-16] MEDS: Acetaminophen 500 MG Tablet 1000 MG PO ×2 (06:10→20:32)
[2017-12-16 07:46] LABS: Absolute Lymphocyte Count 1.61 X10^3/ul (0.83-4.51); Absolute Neutrophil Count 4.9 X10^3/uL (2.0-7.7); Basophil# 0.02 X10^3/uL; Basophil% 0.3 % (0-1); Eosinophil# 0.35 X10^3/uL; Eosinophils% 4.5 % (0-5); Hematocrit 33.8 % (37-47); Hemoglobin 10.3 g/dl (12.0-15.0); Lymphocyte # 1.61 X10^3/ul (4.0); Lymphocyte % 20.9 % (19-41); Mean Corp Hgb Conc 30.5 g/gl (32-36); Mean Corpuscular Hgb 28.9 pg (27.0-32.0); Mean Corpuscular Volume 94.7 fL (81-99); Mean Platelet Vol. 9.2 fl (6.2-12.0); Monocyte# 0.84 X10^3/uL; Monocyte% 10.9 % (0-10); Neutrophil # 4.86 X10^3/uL (2.7-7.7); Neutrophil % 62.9 % (47-70); Platelet Count 317 K/mm3 (150-450); RBC Distribution Width CV 16.3 % (11.6-14.6); RBC Distribution Width SD 55.8 fl (35.1-43.9); Red Blood Count 3.57 M/mm3 (4.2-5.4); White Blood Count 7.7 K/mm3 (4.4-11.0)
[2017-12-16 07:47] LABS: POSITIVE COUNT NO; POSITIVE DIFFERENTIAL NO; POSITIVE MORPHOLOGY NO
[2017-12-16] MEDS: Iron Polysaccharide Complex 150 MG CAPSULE PO (07:48)
[2017-12-16] MEDS: Aspirin 81 MG TAB.CHEW PO (07:48)
[2017-12-16 08:05] LABS: Anion Gap 7 (5-15); BUN 36 mg/dL (7-18); BUN/Creat Ratio 25.5 RATIO (10-20); Calcium,Total 9.3 mg/dL (8.5-10.1); Chloride 100 mmol/L (98-107); Creatinine, Serum 1.41 mg/dL (0.55-1.02); EST Glomerular Filtration Rate 39 mL/min (>60); Est Glom Filt Rate - Afr Amer 47 mL/min (>60); Estimated Creatinine Clearance 32.27 ml/min; Glucose 116 mg/dL (74-106); Potassium 3.3 mmol/L (3.5-5.1); Sodium Level 140 mmol/L (136-145)
--- NOTE | 2017-12-16 11:44 | NURSING ---
Dr. Knutson reviewed labs, N.O. for K-dur daily, recheck BMP tomorrow, pt updated
[2017-12-16] MEDS: oxyCODONE 5 MG Tablet 10 MG PO (12:18)
[2017-12-16 15:35] VITALS: BP 141/75; PULSE 71; RESP 18; TEMP 36.8; O2SAT 92
[2017-12-16 16:11] VITALS: BP 122/53; PULSE 71
[2017-12-16] MEDS: MELATONIN 3 MG TABLET PO (20:12)
[2017-12-16] MEDS: Atorvastatin Calcium 40 MG Tablet PO (20:12)
[2017-12-16 22:00] VITALS: PULSE 70; RESP 18; O2SAT 95
[2017-12-17] MEDS: APIXABAN 5 MG TABLET PO ×2 (04:55→17:05)
[2017-12-17] MEDS: PARoxetine 10 MG Tablet PO (04:56)
[2017-12-17] MEDS: Senna/Docusate Sodium 1 Tablet 2 TABLET PO ×2 (04:56→17:05)
[2017-12-17] MEDS: Polyethylene Glycol 3350 17 GM PACKET PO (04:56)
[2017-12-17] MEDS: FEBUXOSTAT 40 MG TABLET PO (04:56)
[2017-12-17 04:57] VITALS: BP 173/93; PULSE 77
[2017-12-17] MEDS: Metoprolol(XL)Succ 50 MG Tablet PO (04:57)
[2017-12-17] MEDS: Chlorthalidone 50 MG Tablet 25 MG PO (04:57)
[2017-12-17] MEDS: Nystatin Powder 15gm Bottle 1 APPLIC TOPICAL ×2 (04:58→20:28)
[2017-12-17] MEDS: Collagenase 30gm Tube 1 APPLIC TOPICAL (05:04)
[2017-12-17] MEDS: Menthol/Lanolin/Calamine/Znox 113 GM Tube 1 APPLIC TOPICAL ×2 (05:06→20:28)
[2017-12-17 06:22] LABS: Anion Gap 8 (5-15); BUN 37 mg/dL (7-18); BUN/Creat Ratio 25.2 RATIO (10-20); Calcium,Total 9.5 mg/dL (8.5-10.1); Chloride 104 mmol/L (98-107); Creatinine, Serum 1.47 mg/dL (0.55-1.02); EST Glomerular Filtration Rate 37 mL/min (>60); Est Glom Filt Rate - Afr Amer 45 mL/min (>60); Estimated Creatinine Clearance 30.96 ml/min; Glucose 93 mg/dL (74-106); Potassium 3.7 mmol/L (3.5-5.1); Sodium Level 142 mmol/L (136-145)
[2017-12-17] MEDS: Acetaminophen 500 MG Tablet 1000 MG PO ×2 (07:47→17:05)
[2017-12-17] MEDS: Iron Polysaccharide Complex 150 MG CAPSULE PO (07:48)
[2017-12-17] MEDS: Aspirin 81 MG TAB.CHEW PO (07:48)
[2017-12-17 10:00] VITALS: PULSE 72; RESP 18; O2SAT 95
--- NOTE | 2017-12-17 10:22 | NURSING ---
Addendum entered by Harriet Monson 12/17/17 13:16: [facility] returned call and reported they did receive CTA results and they will call us if he has any new orders. Original Note: Message left with Dr Marmolejo office, awaiting return call regarding CTA results or any new orders.
--- NOTE | 2017-12-17 11:06 | NURSING ---
BUILDING PRINCIPAL, reported skin is off of bottom RT 5th toe. DSD applied, Lianne wound nurse notified. Will be over to assess later.
--- NOTE | 2017-12-17 14:43 | NURSING ---
wound photo: toes right foot
--- NOTE | 2017-12-17 14:43 | NURSING ---
wound photo: toes left foot
[2017-12-17 15:09] VITALS: BP 155/99; PULSE 73; RESP 20; TEMP 36.6; O2SAT 95
[2017-12-17] MEDS: Atorvastatin Calcium 40 MG Tablet PO (20:29)
[2017-12-17] MEDS: oxyCODONE 5 MG Tablet 10 MG PO (21:14)
[2017-12-17] MEDS: MELATONIN 3 MG TABLET PO (21:14)
[2017-12-18] MEDS: Nystatin Powder 15gm Bottle 1 APPLIC TOPICAL ×2 (06:08→20:02)
[2017-12-18] MEDS: Menthol/Lanolin/Calamine/Znox 113 GM Tube 1 APPLIC TOPICAL ×2 (06:08→20:01)
[2017-12-18] MEDS: Senna/Docusate Sodium 1 Tablet 2 TABLET PO ×2 (06:09→17:23)
[2017-12-18] MEDS: Chlorthalidone 50 MG Tablet 25 MG PO (06:09)
[2017-12-18 06:10] VITALS: BP 154/76; PULSE 68
[2017-12-18] MEDS: APIXABAN 5 MG TABLET PO ×2 (06:10→17:23)
[2017-12-18] MEDS: Metoprolol(XL)Succ 50 MG Tablet PO (06:10)
[2017-12-18] MEDS: PARoxetine 10 MG Tablet PO (06:10)
[2017-12-18] MEDS: FEBUXOSTAT 40 MG TABLET PO (06:10)
[2017-12-18] MEDS: Collagenase 30gm Tube 1 APPLIC TOPICAL (06:11)
[2017-12-18] MEDS: Acetaminophen 500 MG Tablet 1000 MG PO (06:28)
[2017-12-18 06:30] VITALS: PULSE 85; RESP 16; O2SAT 94
[2017-12-18] MEDS: Aspirin 81 MG TAB.CHEW PO (07:57)
[2017-12-18] MEDS: Iron Polysaccharide Complex 150 MG CAPSULE PO (07:57)
--- NOTE | 2017-12-18 11:32 | CASEMGMT ---
Insurance Continued stay has been denied with a last cover day fo 12/20/17 and a discharge or resident financial responsibility to begin on 12/21/17. Auth#[id number] Alondra MENDEZ, ROUTE DRIVER COIN MACHINES
--- NOTE | 2017-12-18 11:33 | CASEMGMT ---
Social Work Spoke with resident and resident family. This social work nurse communicating that continued stay has been denied by insurance and that last cover day is 12/20/17 and discharge or resident financial responsibility to being on 12/21/17. Resident and resident family are not agreeable to insurance decision. This social work nurse educating resident and resident family on appeal process. Resident son, Husam planning to initiate appeal on this day. This social work nurse broaching topic of discharge plan in the event that continued stay is not approved. Resident voicing to plan to transition to [facility]. Resident has already met with [facility] and [facility] has accepted resident. Support given. Proposed discharge date: 12/21/17 pending appeal. PLAN: Transition to [facility] pending appeal response. Will continue to follow. Alondra MENDEZ, ASPHALT SPREADER OPERATOR
[2017-12-18 15:57] VITALS: BP 160/72; PULSE 75; RESP 18; TEMP 36.8; O2SAT 93
--- NOTE | 2017-12-18 16:45 | CHAPLAIN ---
Type of Pastoral Visit ___ Initial Visit _x__ Follow-up Visit ___ On-call Visit ___ General Patient Visit ___ Spiritual Assessment ___ Family Conference ___ Bereavement ___ Rapid Response ___ Code Blue ___ Other (describe below) Pastoral Care Referral From _x__ Patient ___ Family ___ Nurse ___ Physician ___ Crate Repairer ___ Rustic Terrazzo Setter ___ Other (describe below) Sacrament/Intervention _x__ Active listening ___ Anointing ___ Yazidi ___ Bereavement ___ Communion ___ Roya exploration ___ ___ Life review _x__ Prayer ___ Reconciliation ___ Sacrament of Sick _x__ Supportive presence ___ Wedding ___ Other (describe below) Pastoral Comments patient appears more upbeat today as she now has a plan for where she will live and there are some hopeful things about healing in her toes;
[2017-12-18] MEDS: oxyCODONE 5 MG Tablet 10 MG PO (20:01)
[2017-12-18] MEDS: MELATONIN 3 MG TABLET PO (20:03)
[2017-12-18] MEDS: Atorvastatin Calcium 40 MG Tablet PO (20:03)
[2017-12-19] MEDS: oxyCODONE 5 MG Tablet 10 MG PO ×2 (06:09→20:08)
[2017-12-19 06:10] VITALS: BP 163/87; PULSE 79
[2017-12-19] MEDS: Chlorthalidone 50 MG Tablet 25 MG PO (06:10)
[2017-12-19] MEDS: Senna/Docusate Sodium 1 Tablet 2 TABLET PO ×2 (06:10→17:49)
[2017-12-19] MEDS: Metoprolol(XL)Succ 50 MG Tablet PO (06:10)
[2017-12-19] MEDS: Polyethylene Glycol 3350 17 GM PACKET PO (06:10)
[2017-12-19] MEDS: PARoxetine 10 MG Tablet PO (06:11)
[2017-12-19] MEDS: APIXABAN 5 MG TABLET PO ×2 (06:11→17:49)
[2017-12-19] MEDS: Nystatin Powder 15gm Bottle 1 APPLIC TOPICAL ×2 (06:11→20:09)
[2017-12-19] MEDS: Menthol/Lanolin/Calamine/Znox 113 GM Tube 1 APPLIC TOPICAL ×2 (06:11→20:09)
[2017-12-19] MEDS: FEBUXOSTAT 40 MG TABLET PO (06:11)
[2017-12-19 07:00] VITALS: BP 163/87; PULSE 79; RESP 18; TEMP 36.6; O2SAT 92
[2017-12-19] MEDS: Collagenase 30gm Tube 1 APPLIC TOPICAL (07:13)
[2017-12-19] MEDS: Iron Polysaccharide Complex 150 MG CAPSULE PO (07:51)
[2017-12-19] MEDS: Aspirin 81 MG TAB.CHEW PO (07:52)
--- NOTE | 2017-12-19 12:33 | NURSING ---
Dr. Marmolejo in to see patient, dressing changed. States he will call to set up a stent placement for lower extremity, possibly sunday.
[2017-12-19 16:00] VITALS: BP 155/74; PULSE 76; RESP 18; TEMP 36.8; O2SAT 94
[2017-12-19] MEDS: Atorvastatin Calcium 40 MG Tablet PO (20:09)
[2017-12-19] MEDS: MELATONIN 3 MG TABLET PO (20:15)
[2017-12-20] MEDS: oxyCODONE 5 MG Tablet 10 MG PO ×4 (01:30→22:09)
[2017-12-20] MEDS: APIXABAN 5 MG TABLET PO (06:27)
[2017-12-20] MEDS: Menthol/Lanolin/Calamine/Znox 113 GM Tube 1 APPLIC TOPICAL ×2 (06:27→22:06)
[2017-12-20] MEDS: FEBUXOSTAT 40 MG TABLET PO (06:29)
[2017-12-20 06:30] VITALS: PULSE 94
[2017-12-20] MEDS: Nystatin Powder 15gm Bottle 1 APPLIC TOPICAL ×2 (06:30→22:07)
[2017-12-20] MEDS: Senna/Docusate Sodium 1 Tablet 2 TABLET PO ×2 (06:30→17:30)
[2017-12-20] MEDS: Metoprolol(XL)Succ 50 MG Tablet PO (06:30)
[2017-12-20] MEDS: Polyethylene Glycol 3350 17 GM PACKET PO (06:31)
[2017-12-20] MEDS: Chlorthalidone 50 MG Tablet 25 MG PO (06:31)
[2017-12-20] MEDS: PARoxetine 10 MG Tablet PO (06:31)
[2017-12-20] MEDS: Collagenase 30gm Tube 1 APPLIC TOPICAL (06:32)
[2017-12-20] MEDS: Aspirin 81 MG TAB.CHEW PO (07:54)
[2017-12-20] MEDS: Iron Polysaccharide Complex 150 MG CAPSULE PO (07:54)
[2017-12-20 10:00] VITALS: PULSE 83; RESP 16; O2SAT 96
--- NOTE | 2017-12-20 11:29 | NURSING ---
Patient to have stent procedure done tomorrow at [address] Marmolejo. Patient to be NPO after midnight and eliquis to be held. CBC, renal panel and PT/PTT ordered per [facility] surgical nurse. Patient aware.
--- NOTE | 2017-12-20 12:18 | NURSING ---
Pt very sleepy and tired today, Pt very worried about up coming procedure, and about discharge tomorrow. Vitals all WNL. Pt is complaining of more pain in left foot. Left great toe and second toe very purple/ black and more painful. Great toe does have some cracking in skin present. MARTHA Cole notified
--- NOTE | 2017-12-20 12:47 | CASEMGMT ---
Social Work Telephone call from [facility]. Resident did not win appeal. Last cover day continues to be 12/20/17 and discharge on 12/21/17 or resident financial responsibility to begin. Spoke with resident and resident family. Resident aware of [facility] decision. Resident reporting to plan to discharge on 12/21/17. Resident plans to discharge to [facility]. Resident also scheduled to have surgery done on 12/21/17 and will possibly admit to acute hospital after surgery per nursing staff. Resident and resident family aware that if resident is able to discharge to assisted living that everything has been set up with [facility]. Resident son reporting to have begun payments. Support given. Telephone call to [facility]. This medical social worker communicating above information. Will fax discharge information when obtained. Proposed discharge date: 12/21/17 PLAN: Discharge to surgery and then [facility] when medically able. Alondra MENDEZ, PRESS PULLER
[2017-12-20 15:58] VITALS: BP 152/82; PULSE 87; RESP 16; TEMP 37.1; O2SAT 94
--- NOTE | 2017-12-20 21:01 | DCINST_ITS ---
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 (Acute) You will use the following diet at home:: No restrictions, Regular Your food should be the consistency of: Regular Your liquids should be the consistency of: Regular/Thin Discharge Activity: Return to Normal Activity, May Shower, Use Walker Weight Bearing Status: Weight bearing as tolerated Call your doctor if you observe: Fever of 101 or Higher, Inability to urinate, Inability to have a bowel movement, Shortness of breath, Chest pain, Uncontrolled pain Allergies/Adverse Reactions: Allergies Latex, Natural Rubber Allergy (Verified 11/23/17 03:58) Itching Sulfa (Sulfonamide Antibiotics) Allergy (Verified 11/23/17 03:58) Other Medications to take at Discharge Metoprolol(XL)Succ [Toprol Xl (Beta Lokesh)] 100 mg PO DAILY 09/11/17 rosuvastatin 20 mg tablet 20 mg PO QHS 10/16/17 Acetaminophen [Tylenol] 1,000 mg PO Q8H PRN PRN tablet 12/20/17 Apixaban [Eliquis] 5 mg PO BID #60 tab 12/20/17 Aspirin [Aspirin, Baby] 81 mg PO DAILY@0800 tab.chew 12/20/17 Chlorthalidone [Hygroton] 25 mg PO DAILY tablet 12/20/17 Collagenase [Santyl] 1 applic TOPICAL DAILY #1 tube 12/20/17 Febuxostat [Uloric] 40 mg PO DAILY #30 tab 12/20/17 Iron Polysaccharide Complex [Ferrex 150] 150 mg PO DAILYCM capsule 12/20/17 Melatonin 3 mg PO QHS PRN tablet 12/20/17 Menthol/Lanolin/Calamine/Znox [Calmoseptine Ointment] 1 applic TOPICAL 0600, 2200 tube 12/20/17 Nystatin Powder [Mycostatin Powder] 1 applic TOPICAL 0600,2200 bottle 12/20/17 Oxycodone [Oxyir] 10 mg PO Q4H PRN PRN #30 tablet 12/20/17 Pantoprazole Sodium [Protonix] 40 mg PO DAILY #30 tab 12/20/17 Polyethylene Glycol 3350 [Miralax] 17 gm PO DAILY #30 packet 12/20/17 Potassium Chloride [K-Dur] 20 meq PO DAILYCM tablet 12/20/17 The following prescriptions were given: Oxycodone [Oxyir] 10 mg PO Q4H PRN PRN #30 tablet PRN Reason: Severe Pain (-08/21) Collagenase [Santyl] 1 applic TOPICAL DAILY #1 tube Febuxostat [Uloric] 40 mg PO DAILY #30 tab Pantoprazole Sodium [Protonix] 40 mg PO DAILY #30 tab Polyethylene Glycol 3350 [Miralax] 17 gm PO DAILY #30 packet Apixaban [Eliquis] 5 mg PO BID #60 tab Primary Care Physician: Karan Knutson Chi, MD [Primary Care Provider] - Please follow up with your Primary Care Physician in: 1 week. Please Follow Up With: Laurent Zurita When: 2 weeks. Please Follow Up With: Dr. Young When: 2 weeks. Please Follow Up With: Dr Geremias Marmolejo When: 1 week. Proposed Discharge Date: 12/21/17
--- NOTE | 2017-12-20 21:01 | PCM.DC.SUM ---
Discharge Date and Diagnosis - Problem List Patient Problems: Active and Suspected Problems (Last Updated 10/16/17 @ 13:28 by Tiff Paul) Skin ulcer of third toe of right foot (Acute) Gangrene of toe (Acute) Upper GI bleed (Acute) Embolic disease of toe (Acute) Blue toe syndrome of both lower extremities (Acute) Date of Admission: 12/05/17 Date of Discharge: 12/21/17 - Primary Discharge Diagnosis Active and Suspected Problems (Last Updated 10/16/17 @ 13:28 by Tiff Paul) Skin ulcer of third toe of right foot (Acute) Gangrene of toe (Acute) Upper GI bleed (Acute) Embolic disease of toe (Acute) Blue toe syndrome of both lower extremities (Acute) - Secondary Discharge Diagnosis Chronic Problems (Last Updated 10/16/17 @ 13:28 by Tiff Paul) Mural thrombus of heart (Chronic) Depression (Chronic) 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) CABG x 4 DEMPSEY- LAD, Free JAVIER-OM, SVG-PDA and Disatl RCA Atherosclerotic heart disease of [place] coronary artery without angina pectoris (Chronic) Atrial fibrillation with rapid ventricular response (Chronic) Hyperlipidemia (Chronic) Hyperkalemia (Chronic) Gout (Chronic) Anxiety (Chronic) Aortic mural thrombus (Chronic) Insomnia (Chronic) Carotid artery stenosis (Chronic) PAOD (peripheral arterial occlusive disease) (Chronic) Toe pain, right (Chronic) DVT (deep venous thrombosis) (Chronic) Pulmonary emboli (Chronic) Fall (Chronic) Debility (Chronic) Bilateral deep vein thromboses (Chronic) Hypokalemia (Chronic) Morbid obesity (Chronic) Iron deficiency anemia (Chronic) CAD (coronary artery disease) (Chronic) Morbid obesity with BMI of 40.0-44.9, adult (Chronic) Non-STEMI (non-ST elevated myocardial infarction) (Chronic) Dyspnea (Chronic) Orthopnea (Chronic) Hypertension (Chronic) Hypercholesterolemia (Chronic) Descending aorta atherosclerotic plaquin (Chronic) Unstable angina (Chronic) Hospital Course and Treatment Imaging Results: 12/01/17 18:04 Diet: Cardiac/Low Cholesterol Clinical Impression(s) from Imaging Studies Chest X-Ray 12/03/17 15:17 IMPRESSION: 1. No acute cardiopulmonary process. Electronically Signed: Roberth Pino MD at 18:24 EST , Service support , Foot X-Ray 12/06/17 08:30 IMPRESSION: Diffuse soft tissue swelling. Degenerative changes at the first metatarsophalangeal joint. Gout should be ruled out. Calcaneal spurs. Electronically Signed: Milton Shetty MD at 9:33 EST Tel [phone], Service support , Abdomen/Pelvis CTA 12/07/17 15:32 IMPRESSION: Extensive irregular circumferential noncalcified and calcified plaque of the aorta without aneurysm or substantial narrowing of the lumen. Negative for a stenosis of the celiac or superior mesenteric artery. 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 An adequate exam for assessment of renal artery stenosis. 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 Mild plaque of the common and internal iliacs bilaterally with less than 50% narrowing. External iliac arteries without plaque or stenosis. Right lower extremity: 4.8 cm occluded section of the distal superficial femoral artery occurring 16 cm above the knee. Reconstitution above the knee. The right anterior tibial and peroneal artery are patent to the foot. The posterior tibial artery is occluded above the ankle. Left lower extremity: No significant stenotic areas in the common femoral, profunda artery, superficial femoral artery or popliteal artery. The anterior tibial artery is patent to the foot. The peroneal artery is patent to the ankle. The posterior tibial artery is occluded above the ankle. Incidental findings include a stone packed gallbladder, multiple bilateral simple renal cysts, minimal diverticulosis and a 5.8 cm cyst of the right pelvis status post hysterectomy. Minimal fatty umbilical hernia. Electronically Signed: Akilah Bell MD at 20:03 EST , Service support , Consultations 12/16/17 10:44 Consult: Onc/Wound/license clerk Routine Comment: Reason for Consult:: rt third toe drsg Operations: None Procedures: None Summary of Care Provided: The patient is a 77 year old Female with below past medical history hospitalized at [facility] for upper GI bleed, admitted to TCU for rehabilitation, strengthening. Resident has Dr. Francie SPANN consulted. Will discharge to acute (surgery; right lower extremity stent) and then to [facility], if medically cleared. Home health ordered. Discharge Activity: Return to Normal Activity, May Shower, Use Walker Weight Bearing Status: Weight bearing as tolerated Call your doctor if you observe: Fever of 101 or Higher, Inability to urinate, Inability to have a bowel movement, Shortness of breath, Chest pain, Uncontrolled pain Home Medications: Medications to take at Discharge Metoprolol(XL)Succ [Toprol Xl (Beta Lokesh)] 100 mg PO DAILY 09/11/17 rosuvastatin 20 mg tablet 20 mg PO QHS 10/16/17 Acetaminophen [Tylenol] 1,000 mg PO Q8H PRN PRN tablet 12/20/17 Apixaban [Eliquis] 5 mg PO BID #60 tab 12/20/17 Aspirin [Aspirin, Baby] 81 mg PO DAILY@0800 tab.chew 12/20/17 Chlorthalidone [Hygroton] 25 mg PO DAILY tablet 12/20/17 Collagenase [Santyl] 1 applic TOPICAL DAILY #1 tube 12/20/17 Febuxostat [Uloric] 40 mg PO DAILY #30 tab 12/20/17 Iron Polysaccharide Complex [Ferrex 150] 150 mg PO DAILYCM capsule 12/20/17 Melatonin 3 mg PO QHS PRN tablet 12/20/17 Menthol/Lanolin/Calamine/Znox [Calmoseptine Ointment] 1 applic TOPICAL 0600,2200 tube 12/20/17 Nystatin Powder [Mycostatin Powder] 1 applic TOPICAL 0600,2200 bottle 12/20/17 Oxycodone [Oxyir] 10 mg PO Q4H PRN PRN #30 tablet 12/20/17 Pantoprazole Sodium [Protonix] 40 mg PO DAILY #30 tab 12/20/17 Polyethylene Glycol 3350 [Miralax] 17 gm PO DAILY #30 packet 12/20/17 Potassium Chloride [K-Dur] 20 meq PO DAILYCM tablet 12/20/17 Following Prescrptions Were Given to Patient: Oxycodone [Oxyir] 10 mg PO Q4H PRN PRN #30 tablet PRN Reason: Severe Pain (6-08/21) Collagenase [Santyl] 1 applic TOPICAL DAILY #1 tube Febuxostat [Uloric] 40 mg PO DAILY #30 tab Pantoprazole Sodium [Protonix] 40 mg PO DAILY #30 tab Polyethylene Glycol 3350 [Miralax] 17 gm PO DAILY #30 packet Apixaban [Eliquis] 5 mg PO BID #60 tab Primary Care Physician: Karan Knutson Chi, MD [Primary Care Provider] - Please follow up with your Primary Care Physician in: 1 week. Please Follow Up With: Sherrell Frank DPM When: 1 week. Please Follow Up With: Dr Geremias Marmolejo When: 1 week. Disposition: Home with Home Health Minutes spent on discharge:: 35 Patient Condition:: Fair Meaningful Use Info Meaningful Use Diagnoses (Choose all that apply): None applicable
--- NOTE | 2017-12-20 21:04 | DS.PCM_ITS ---
Discharge Date and Diagnosis - Problem List Patient Problems: Active and Suspected Problems (Last Updated 10/16/17 @ 13:28 by Tiff Paul) Skin ulcer of third toe of right foot (Acute) Gangrene of toe (Acute) Upper GI bleed (Acute) Embolic disease of toe (Acute) Blue toe syndrome of both lower extremities (Acute) Date of Admission: 12/05/17 Date of Discharge: 12/21/17 - Primary Discharge Diagnosis Active and Suspected Problems (Last Updated 10/16/17 @ 13:28 by Tiff Paul) Skin ulcer of third toe of right foot (Acute) Gangrene of toe (Acute) Upper GI bleed (Acute) Embolic disease of toe (Acute) Blue toe syndrome of both lower extremities (Acute) - Secondary Discharge Diagnosis Chronic Problems (Last Updated 10/16/17 @ 13:28 by Tiff Paul) Mural thrombus of heart (Chronic) Depression (Chronic) 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) CABG x 4 DEMPSEY- LAD, Free JAVIER-OM, SVG-PDA and Disatl RCA Atherosclerotic heart disease of [place] coronary artery without angina pectoris (Chronic) Atrial fibrillation with rapid ventricular response (Chronic) Hyperlipidemia (Chronic) Hyperkalemia (Chronic) Gout (Chronic) Anxiety (Chronic) Aortic mural thrombus (Chronic) Insomnia (Chronic) Carotid artery stenosis (Chronic) PAOD (peripheral arterial occlusive disease) (Chronic) Toe pain, right (Chronic) DVT (deep venous thrombosis) (Chronic) Pulmonary emboli (Chronic) Fall (Chronic) Debility (Chronic) Bilateral deep vein thromboses (Chronic) Hypokalemia (Chronic) Morbid obesity (Chronic) Iron deficiency anemia (Chronic) CAD (coronary artery disease) (Chronic) Morbid obesity with BMI of 40.0-44.9, adult (Chronic) Non-STEMI (non-ST elevated myocardial infarction) (Chronic) Dyspnea (Chronic) Orthopnea (Chronic) Hypertension (Chronic) Hypercholesterolemia (Chronic) Descending aorta atherosclerotic plaquin (Chronic) Unstable angina (Chronic) Hospital Course and Treatment Imaging Results: 12/01/17 18:04 Diet: Cardiac/Low Cholesterol Clinical Impression(s) from Imaging Studies Chest X-Ray 12/03/17 15:17 IMPRESSION: 1. No acute cardiopulmonary process. Electronically Signed: Roberth Pino MD at 18:24 EST , Service support , Foot X-Ray 12/06/17 08:30 IMPRESSION: Diffuse soft tissue swelling. Degenerative changes at the first metatarsophalangeal joint. Gout should be ruled out. Calcaneal spurs. Electronically Signed: Milton Shetty MD at 9:33 EST Tel [phone], Service support , Abdomen/Pelvis CTA 12/07/17 15:32 IMPRESSION: Extensive irregular circumferential noncalcified and calcified plaque of the aorta without aneurysm or substantial narrowing of the lumen. Negative for a stenosis of the celiac or superior mesenteric artery. 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 An adequate exam for assessment of renal artery stenosis. 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 Mild plaque of the common and internal iliacs bilaterally with less than 50% narrowing. External iliac arteries without plaque or stenosis. Right lower extremity: 4.8 cm occluded section of the distal superficial femoral artery occurring 16 cm above the knee. Reconstitution above the knee. The right anterior tibial and peroneal artery are patent to the foot. The posterior tibial artery is occluded above the ankle. Left lower extremity: No significant stenotic areas in the common femoral, profunda artery, superficial femoral artery or popliteal artery. The anterior tibial artery is patent to the foot. The peroneal artery is patent to the ankle. The posterior tibial artery is occluded above the ankle. Incidental findings include a stone packed gallbladder, multiple bilateral simple renal cysts, minimal diverticulosis and a 5.8 cm cyst of the right pelvis status post hysterectomy. Minimal fatty umbilical hernia. Electronically Signed: Akilah Bell MD at 20:03 EST , Service support , Consultations 12/16/17 10:44 Consult: Onc/Wound/parks and recreation worker Routine Comment: Reason for Consult:: rt third toe drsg Operations: None Procedures: None Summary of Care Provided: The patient is a 77 year old Female with below past medical history hospitalized at [facility] for upper GI bleed, admitted to TCU for rehabilitation, strengthening. Resident has Dr. Francie SPANN consulted. Will discharge to acute (surgery; right lower extremity stent) and then to [facility], if medically cleared. Home health ordered. Discharge Activity: Return to Normal Activity, May Shower, Use Walker Weight Bearing Status: Weight bearing as tolerated Call your doctor if you observe: Fever of 101 or Higher, Inability to urinate, Inability to have a bowel movement, Shortness of breath, Chest pain, Uncontrolled pain Home Medications: Medications to take at Discharge Metoprolol(XL)Succ [Toprol Xl (Beta [place])] 100 mg PO DAILY 09/11/17 rosuvastatin 20 mg tablet 20 mg PO QHS 10/16/17 Acetaminophen [Tylenol] 1,000 mg PO Q8H PRN PRN tablet 12/20/17 Apixaban [Eliquis] 5 mg PO BID #60 tab 12/20/17 Aspirin [Aspirin, Baby] 81 mg PO DAILY@0800 tab.chew 12/20/17 Chlorthalidone [Hygroton] 25 mg PO DAILY tablet 12/20/17 Collagenase [Santyl] 1 applic TOPICAL DAILY #1 tube 12/20/17 Febuxostat [Uloric] 40 mg PO DAILY #30 tab 12/20/17 Iron Polysaccharide Complex [Ferrex 150] 150 mg PO DAILYCM capsule 12/20/17 Melatonin 3 mg PO QHS PRN tablet 12/20/17 Menthol/Lanolin/Calamine/Znox [Calmoseptine Ointment] 1 applic TOPICAL 0600, 2200 tube 12/20/17 Nystatin Powder [Mycostatin Powder] 1 applic TOPICAL 0600,2200 bottle 12/20/17 Oxycodone [Oxyir] 10 mg PO Q4H PRN PRN #30 tablet 12/20/17 Pantoprazole Sodium [Protonix] 40 mg PO DAILY #30 tab 12/20/17 Polyethylene Glycol 3350 [Miralax] 17 gm PO DAILY #30 packet 12/20/17 Potassium Chloride [K-Dur] 20 meq PO DAILYCM tablet 12/20/17 Following Prescrptions Were Given to Patient: Oxycodone [Oxyir] 10 mg PO Q4H PRN PRN #30 tablet PRN Reason: Severe Pain (6-08/21) Collagenase [Santyl] 1 applic TOPICAL DAILY #1 tube Febuxostat [Uloric] 40 mg PO DAILY #30 tab Pantoprazole Sodium [Protonix] 40 mg PO DAILY #30 tab Polyethylene Glycol 3350 [Miralax] 17 gm PO DAILY #30 packet Apixaban [Eliquis] 5 mg PO BID #60 tab Primary Care Physician: Karan Knutson Chi, MD [Primary Care Provider] - Please follow up with your Primary Care Physician in: 1 week. Please Follow Up With: Sherrell Frank DPM When: 1 week. Please Follow Up With: Dr Geremias Marmolejo When: 1 week. Disposition: Home with Home Health Minutes spent on discharge:: 35 Patient Condition:: Fair Meaningful Use Info Meaningful Use Diagnoses (Choose all that apply): None applicable
--- NOTE | 2017-12-20 21:04 | PCM.PN.HH ---
Home Health Note - Plan Overview of reason of hospitalization: The patient is a 77 year old Female with below past medical history hospitalized at [facility] for upper GI bleed, admitted to TCU for rehabilitation, strengthening. Resident has Dr. Francie SPANN consulted. Will discharge to acute (surgery; right lower extremity stent) and then to [facility], if medically cleared. Home health ordered. Problems: Patient was seen for (Last Updated 10/16/17 @ 13:28 by Tiff Paul) Skin ulcer of third toe of right foot (Acute) Gangrene of toe (Acute) Upper GI bleed (Acute) Mural thrombus of heart (Chronic) Depression (Chronic) Embolic disease of toe (Acute) Blue toe syndrome of both lower extremities (Acute) Complete List of Medical Problems (Last Updated 10/16/17 @ 13:28 by Tiff Paul) Skin ulcer of third toe of right foot (Acute) Gangrene of toe (Acute) Upper GI bleed (Acute) Mural thrombus of heart (Chronic) Depression (Chronic) Embolic disease of toe (Acute) Blue toe syndrome of both lower extremities (Acute) 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) Atrial fibrillation with rapid ventricular response (Chronic) Hyperlipidemia (Chronic) Hyperkalemia (Chronic) Gout (Chronic) Anxiety (Chronic) Aortic mural thrombus (Chronic) Insomnia (Chronic) Carotid artery stenosis (Chronic) PAOD (peripheral arterial occlusive disease) (Chronic) Toe pain, right (Chronic) DVT (deep venous thrombosis) (Chronic) Pulmonary emboli (Chronic) Fall (Chronic) Debility (Chronic) Bilateral deep vein thromboses (Chronic) Hypokalemia (Chronic) Morbid obesity (Chronic) Iron deficiency anemia (Chronic) CAD (coronary artery disease) (Chronic) Morbid obesity with BMI of 40.0-44.9, adult (Chronic) Non-STEMI (non-ST elevated myocardial infarction) (Chronic) Dyspnea (Chronic) Orthopnea (Chronic) Hypertension (Chronic) Hypercholesterolemia (Chronic) Descending aorta atherosclerotic plaquin (Chronic) Unstable angina (Chronic) - Requirements and Reasons Disciplines Needed/Ordered: Long Term, Physical Therapy Reason for Disciplines: Disease Specific Monitoring/education, Medication Management/Knowledge Deficit, Wound Care, Gait Training, Stair Training, Fall Prevention, Home Safety/Equipment Instruction, Balance and/or Posture Training, Transfer Training Related To: Limited/Poor Endurance, Shortness of Breath with Activity, Physical Impairments, Unsteady Gait/Balance, Fall Risk Patient is unable to leave the home: Without Aid of Supportive Devices (crutches, cane, wheelchair, walker), Without the assistance of another person - Additional Disciplines Additional Disciplines Needed/Ordered: Occupational Therapy
[2017-12-20] MEDS: Atorvastatin Calcium 40 MG Tablet PO (22:07)
[2017-12-21] MEDS: Acetaminophen 500 MG Tablet 1000 MG PO (00:05)
[2017-12-21] MEDS: Nystatin Powder 15gm Bottle 1 APPLIC TOPICAL (05:40)
[2017-12-21] MEDS: Menthol/Lanolin/Calamine/Znox 113 GM Tube 1 APPLIC TOPICAL (05:41)
[2017-12-21 05:43] VITALS: BP 133/82; PULSE 70
[2017-12-21] MEDS: FEBUXOSTAT 40 MG TABLET PO (05:43)
[2017-12-21] MEDS: Metoprolol(XL)Succ 50 MG Tablet PO (05:43)
[2017-12-21] MEDS: PARoxetine 10 MG Tablet PO (05:44)
[2017-12-21] MEDS: Chlorthalidone 50 MG Tablet 25 MG PO (05:44)
[2017-12-21] MEDS: Collagenase 30gm Tube 1 APPLIC TOPICAL (05:45)
[2017-12-21] MEDS: oxyCODONE 5 MG Tablet 10 MG PO (05:53)
[2017-12-21 07:28] VITALS: PULSE 78; RESP 18; O2SAT 92
--- NOTE | 2017-12-21 08:51 | CASEMGMT ---
Social Work Discharge information faxed to [facility] in the event that resident discharges to the assisted living after surgery. Proposed discharge date: 12/21/17 PLAN: Discharge to surgery and possibly assisted living if able. Alondra MENDEZ, FIELD COURT RESEARCHER
[2017-12-21 10:35] VITALS: TEMP 36.8
--- NOTE | 2017-12-21 11:22 | NURSING ---
RN TCU parks and recreation manager called & reported pt to be in poultry hatchery laborer at noon today for stent placement in RLE. Will be d/c to acute side of hospital and then to [facility] when ready. All paperwork sent with pt to dental lab technician
--- NOTE | 2017-12-21 13:00 | CASEMGMT ---
Insurance Notified [employer] that resident discharged on 12/21/17. Auth#[id number] Alondra MENDEZ, SUPERVISOR AIRCRAFT CLEANING
== END 2017-12-21 12:00 | disposition short-term general hospital (02) | DRG 378 ==
PROVIDERS: Admitting Provider Family Medicine Geriatric Medicine; Family Provider Family Medicine Geriatric Medicine; PCP Family Medicine Geriatric Medicine; Visit Provider Family Medicine Geriatric Medicine
DX: K92.2 Gastrointestinal hemorrhage, unspecified (principal); I75.023 Atheroembolism of bilateral lower extremities; I48.2 Chronic atrial fibrillation; I70.268 Atherosclerosis of native arteries of extremities with gangrene, other extremity; E66.01 Morbid (severe) obesity due to excess calories; I51.3 Intracardiac thrombosis, not elsewhere classified; E78.5 Hyperlipidemia, unspecified; I25.10 Atherosclerotic heart disease of native coronary artery without angina pectoris; K21.9 Gastro-esophageal reflux disease without esophagitis; F32.9 Major depressive disorder, single episode, unspecified; I10 Essential (primary) hypertension; M10.9 Gout, unspecified; F41.9 Anxiety disorder, unspecified; I25.2 Old myocardial infarction; D50.9 Iron deficiency anemia, unspecified; Z95.1 Presence of aortocoronary bypass graft; Z79.899 Other long term (current) drug therapy; Z79.01 Long term (current) use of anticoagulants; Z86.711 Personal history of pulmonary embolism; Z68.38 Body mass index [BMI] 38.0-38.9, adult; Z71.3 Dietary counseling and surveillance; Z86.718 Personal history of other venous thrombosis and embolism; Z87.891 Personal history of nicotine dependence; L98.499 Non-pressure chronic ulcer of skin of other sites with unspecified severity
CPT/HCPCS: 36415; 36430; 71046; 73630; 75635; 80048; 81001; 82962; 84550; 85014; 85018; 85025; 86850; 86900; 86920; 86922; 87633; 97110; 97116; 97162; 97166; 97530; 97535; 97802; J7040; P9016; Q9967; J1940

== ENCOUNTER 2017-12-21 15:51 | Day surgery (SDC) | payer MEDICARE, SELFPAY ==
[2017-12-20 11:49] VITALS: BMI 39.2
[2017-12-20 12:22] LABS: Hematocrit 34.5 % (37-47); Hemoglobin 10.8 g/dl (12.0-15.0); Mean Corp Hgb Conc 31.3 g/gl (32-36); Mean Corpuscular Hgb 29.5 pg (27.0-32.0); Mean Corpuscular Volume 94.3 fL (81-99); Mean Platelet Vol. 9.5 fl (6.2-12.0); Platelet Count 307 K/mm3 (150-450); RBC Distribution Width CV 16.7 % (11.6-14.6); RBC Distribution Width SD 55.3 fl (35.1-43.9); Red Blood Count 3.66 M/mm3 (4.2-5.4); White Blood Count 9.1 K/mm3 (4.4-11.0)
[2017-12-20 12:25] LABS: International Normalized Ratio 1.4; Prothrombin Time (Protime)PT. 16.9 SECONDS (11.7-14.9)
[2017-12-20 12:26] LABS: Partial Thromboplast Time 40.5 Seconds (24.1-36.2); Scan Indicated on CBC? Y/N NO
[2017-12-20 12:34] LABS: Albumin, Serum 3.1 g/dL (3.2-5.0); BUN 32 mg/dL (7-18); BUN/Creat Ratio 22.7 RATIO (10-20); Calcium,Total 9.4 mg/dL (8.5-10.1); Chloride 105 mmol/L (98-107); Creatinine, Serum 1.41 mg/dL (0.55-1.02); EST Glomerular Filtration Rate 39 mL/min (>60); Est Glom Filt Rate - Afr Amer 47 mL/min (>60); Estimated Creatinine Clearance 31.02 ml/min; Glucose 96 mg/dL (74-106); Phosphorus 3.9 mg/dL (2.5-4.9); Potassium 3.4 mmol/L (3.5-5.1); Sodium Level 143 mmol/L (136-145)
--- NOTE | 2017-12-21 14:35 | OP.PCM_ITS ---
Problem List (1) Skin ulcer of third toe of right foot Status: Acute (2) Gangrene of toe Status: Acute (3) Claudication of both lower extremities Status: Chronic (4) PAOD (peripheral arterial occlusive disease) Status: Chronic Report of Operation Date of Procedure: 12/21/17 Pre-Operative Diagnosis: Right leg PAD and ulcer on the toes that are nonhealing Post-Operative Diagnosis: The same Surgery/Procedure Performed:: Ultrasound-guided access retrograde left common femoral artery. Right lower extremity angiogram with catheter placed into the popliteal artery. Closure was Star close Type of Anesthesia:: Sedation,Conscious Description of Procedure: Patient brought to the Veterans Employment Representative. Underwent the appropriate timeout consent. Prepped and draped in a sterile fashion. We did ultrasound-guided access retrograde in the left common femoral artery Gave him units of heparin switch to a Glidewire brought in a 5 [place] sheath using Omni then to get up and over the bifurcation. We switch to a quick cross image from the right common femoral artery showing good flow through this the SFA and profunda. At the kind of the adductor into the popliteal it was occluded over a short segment and large collateral flow back into the popliteal down to below the knee into the tibials we did not image all the way to the foot. Rest these vessels appear to be large and good fl We then brought a stiff Glidewire and longer 6 [place] sheath we tried different catheters wires see if we could pop through the But was unable to get anything to pop through after trying numerous times he said that we did have to stop and up to bring back at a later date you trying to use across her device. Removed out the sheath deployed a Star close with good hemostasis she was brought to recovery stable condition Plan: Try another angiogram seen if we can get a crosser device and to cross the lesion and then stent
[2017-12-21 16:00] VITALS: BP 134/67; PULSE 62; RESP 14; TEMP 36.5; O2SAT 96
[2017-12-21 16:30] VITALS: BP 138/69; PULSE 68; RESP 14; TEMP 36.5; O2SAT 96
[2017-12-21 17:30] VITALS: BP 165/67; PULSE 66; RESP 14; O2SAT 92
[2017-12-21] MEDS: oxyCODONE 5 MG Tablet 10 MG PO (17:47)
[2017-12-21 18:37] VITALS: BP 137/64; PULSE 74; RESP 14; O2SAT 93
--- NOTE | 2017-12-21 20:10 | NURSING ---
Spoke with patients sister Jacque. Jacque stated that the son would like for the patient to go to [facility] and that they can provide the type of care that he deems safe for her. The patient is not entirely keen on going to a SNF and would prefer an [place]. tar worker today was aware of these issues. PT sister would like to know that [facility] can accommodate the needs she may have. Pt is a 2 assist with a walker and quite weak. Pt has had several falls recently and that concerns the family. Spoke with MD Marmolejo - unwilling to input orders and wanted MD Knutson notified. Spoke with Md Knutson- wanted patient left Observation tonight and that the director of casework on 12/22 could coordinate the qualifying facility in regards to basic SNF needs. had no new orders and would be willing to input orders as needed tomorrow if necessary. Family notified.
[2017-12-21 20:25] VITALS: O2SAT 94
[2017-12-21 20:58] VITALS: BP 128/69; PULSE 72; RESP 18; TEMP 36.6; O2SAT 94
[2017-12-22 03:00] VITALS: BP 104/82; PULSE 84; RESP 16; TEMP 37; O2SAT 95
--- NOTE | 2017-12-22 05:26 | NURSING ---
Left a detailed voicemail for [facility] Case [facility] at this time in regards to current plan for the patient.
[2017-12-22] MEDS: Allopurinol 300 MG Tablet PO (08:05)
[2017-12-22 09:00] VITALS: BP 151/85; PULSE 80; RESP 16; TEMP 36.9; O2SAT 93
[2017-12-22] MEDS: Rivaroxaban 20 MG Tablet PO (09:52)
[2017-12-22] MEDS: Docusate Sodium 100 MG Capsule PO (09:52)
[2017-12-22] MEDS: hydroCHLOROthiazide 25 MG Tablet PO (09:52)
[2017-12-22] MEDS: Meloxicam 7.5 MG Tablet PO (09:52)
--- NOTE | 2017-12-22 11:18 | NURSING ---
Middle and pinky toe both are very sensitive to the touch, purple in color. Pt states both toes have been this way since having heart surgery in July 2017. Pt also stated that Dr. Knutson is aware. Pt reluctant to have dressing changed but I told her I needed to visualize the toes. Placed small 2x2 between toes and wrapped with kerlex. Left great toe also purple in color, not as sensitive as othe toes on right foot. Wrapped with kerlex for padding and protection.
[2017-12-22] MEDS: oxyCODONE 5 MG Tablet 10 MG PO (11:47)
--- NOTE | 2017-12-22 12:55 | NURSING ---
Pt pulled out IV
[2017-12-22 15:00] VITALS: BP 143/70; PULSE 84; RESP 16; TEMP 36.9; O2SAT 97
== END 2017-12-22 15:55 | disposition home or self-care (01) ==
LOC: CLSP 15:53 → PCU 15:54
PROVIDERS: Family Provider Family Medicine Geriatric Medicine; PCP Family Medicine Geriatric Medicine; Visit Provider Surgery Vascular Surgery
DX: I70.213 Atherosclerosis of native arteries of extremities with intermittent claudication, bilateral legs (principal); L97.519 Non-pressure chronic ulcer of other part of right foot with unspecified severity; I96 Gangrene, not elsewhere classified; I21.3 ST elevation (STEMI) myocardial infarction of unspecified site; E78.00 Pure hypercholesterolemia, unspecified; I10 Essential (primary) hypertension; Z87.891 Personal history of nicotine dependence
CPT/HCPCS: 36245; 36415; 75710; 76937; 80069; 85027; 85610; 85730; 99152; 99153; Q9967; C1760; C1769; C1887; C1894

== ENCOUNTER → 2018-01-10 13:32 | Outpatient (CLI) | payer MEDICARE, SELFPAY ==
[2018-01-10 15:24] LABS: Absolute Lymphocyte Count 1.69 X10^3/ul (0.83-4.51); Absolute Neutrophil Count 5.6 X10^3/uL (2.0-7.7); Basophil# 0.02 X10^3/uL; Basophil% 0.2 % (0-1); Eosinophil# 0.21 X10^3/uL; Eosinophils% 2.5 % (0-5); Hemoglobin 10.3 g/dl (12.0-15.0); Lymphocyte # 1.69 X10^3/ul (4.0); Lymphocyte % 19.8 % (19-41); Mean Corp Hgb Conc 31.2 g/gl (32-36); Mean Corpuscular Hgb 29.2 pg (27.0-32.0); Mean Corpuscular Volume 93.5 fL (81-99); Mean Platelet Vol. 10.1 fl (6.2-12.0); Monocyte# 0.97 X10^3/uL; Monocyte% 11.3 % (0-10); Neutrophil # 5.64 X10^3/uL (2.7-7.7); Platelet Count 320 K/mm3 (150-450); RBC Distribution Width CV 15.3 % (11.6-14.6); RBC Distribution Width SD 50.6 fl (35.1-43.9); Red Blood Count 3.53 M/mm3 (4.2-5.4); White Blood Count 8.6 K/mm3 (4.4-11.0)
[2018-01-10 15:25] LABS: POSITIVE COUNT NO; POSITIVE DIFFERENTIAL NO; POSITIVE MORPHOLOGY NO
[2018-01-10 15:31] LABS: Anion Gap 8 (5-15); BUN 19 mg/dL (7-18); BUN/Creat Ratio 13.5 RATIO (10-20); Calcium,Total 9.2 mg/dL (8.5-10.1); Chloride 101 mmol/L (98-107); Creatinine, Serum 1.41 mg/dL (0.55-1.02); EST Glomerular Filtration Rate 39 mL/min (>60); Est Glom Filt Rate - Afr Amer 47 mL/min (>60); Glucose 97 mg/dL (74-106); Potassium 4.2 mmol/L (3.5-5.1); Sodium Level 139 mmol/L (136-145); Uric Acid 5.6 mg/dL (2.6-6.0)
== END ==
PROVIDERS: Family Provider Family Medicine Geriatric Medicine; PCP Family Medicine Geriatric Medicine; Visit Provider Family Medicine Geriatric Medicine
DX: E86.0 Dehydration (principal); M10.9 Gout, unspecified
CPT/HCPCS: 36415; 80048; 84550; 85025

== ENCOUNTER → 2018-01-18 05:00 | Outpatient (REF) | payer MEDICARE, SELFPAY ==
[2018-01-18 08:17] LABS: Anion Gap 8 (5-15); BUN 18 mg/dL (7-18); Chloride 103 mmol/L (98-107); Creatinine, Serum 1.63 mg/dL (0.55-1.02); EST Glomerular Filtration Rate 33 mL/min (>60); Est Glom Filt Rate - Afr Amer 40 mL/min (>60); Glucose 96 mg/dL (74-106); Potassium 3.7 mmol/L (3.5-5.1); Sodium Level 141 mmol/L (136-145)
== END ==
PROVIDERS: Visit Provider Family Medicine Geriatric Medicine
DX: I48.91 Unspecified atrial fibrillation (principal); I82.409 Acute embolism and thrombosis of unspecified deep veins of unspecified lower extremity; I10 Essential (primary) hypertension; Z79.899 Other long term (current) drug therapy
CPT/HCPCS: 36415; 80048

== ENCOUNTER → 2018-01-23 09:40 | Day surgery (SDC) | payer MEDICARE, SELFPAY ==
[2018-01-02 08:45] VITALS: BMI 39.2
[2018-01-23 10:11] LABS: Hematocrit 37.2 % (37-47); Hemoglobin 11.6 g/dl (12.0-15.0); Mean Corp Hgb Conc 31.2 g/gl (32-36); Mean Corpuscular Hgb 28.5 pg (27.0-32.0); Mean Corpuscular Volume 91.4 fL (81-99); Mean Platelet Vol. 9.6 fl (6.2-12.0); Platelet Count 357 K/mm3 (150-450); RBC Distribution Width CV 15.5 % (11.6-14.6); RBC Distribution Width SD 50.6 fl (35.1-43.9); Red Blood Count 4.07 M/mm3 (4.2-5.4); White Blood Count 10.3 K/mm3 (4.4-11.0)
[2018-01-23 10:14] LABS: International Normalized Ratio 1.3; Partial Thromboplast Time 38.7 Seconds (24.1-36.2); Prothrombin Time (Protime)PT. 15.7 SECONDS (11.7-14.9)
[2018-01-23 10:17] LABS: Scan Indicated on CBC? Y/N NO
[2018-01-23 10:45] LABS: Albumin, Serum 3.3 g/dL (3.2-5.0); BUN 30 mg/dL (7-18); BUN/Creat Ratio 13.8 RATIO (10-20); Calcium,Total 9.5 mg/dL (8.5-10.1); Chloride 100 mmol/L (98-107); Creatinine, Serum 2.17 mg/dL (0.55-1.02); EST Glomerular Filtration Rate 24 mL/min (>60); Est Glom Filt Rate - Afr Amer 28 mL/min (>60); Estimated Creatinine Clearance 20.16 ml/min; Glucose 107 mg/dL (74-106); Potassium 3.2 mmol/L (3.5-5.1); Sodium Level 140 mmol/L (136-145)
--- NOTE | 2018-01-23 11:46 | PCM.OPRPT ---
Problem List (1) Skin ulcer of third toe of right foot Status: Acute (2) Gangrene of toe Status: Acute (3) Claudication of both lower extremities Status: Chronic (4) PAOD (peripheral arterial occlusive disease) Status: Chronic Report of Operation Date of Procedure: 01/23/18 Pre-Operative Diagnosis: PAD with nonhealing ulcer Post-Operative Diagnosis: The same Surgery/Procedure Performed:: 1. Ultrasound-guided access retrograde left common femoral artery. #2 right lower extremity angiogram with catheter placed into the proximal popliteal artery. #3 crosser atherectomy of the proximal popliteal #4 closure was Star close Type of Anesthesia:: Sedation,Conscious Description of Procedure: Patient brought to the operating room. Underwent the appropriate timeout consent. Prepped and draped in a sterile fashion. We did ultrasound-guided access retrograde in the left common femoral artery. We put in a 5 [place] sheath. We then used a contour catheter we got up and over the bifurcation. We then switched to a quick cross got down the SFA and did an angiogram from there showing the short popliteal occlusion large collateral around this. We asked stiff Glidewire near brought in the 6 [place] 70 cm sheath right to the area the lesion. We gave 5000 units of heparin. We then brought in the crosser device first with the smaller over the wire could not get it to penetrate the calf. We then brought in the second crosser device a little more powerful guided into the And with numerous different tries also could not get it to fully penetrate through the And crossed through the lesion. This was with the Crosser atherectomy device. After trying numerous tries and then even going back to the stiff Glidewire with the back and in the quick cross catheter could not get any penetration we replaced the Glidewire removed the sheath deployed a Star close with good hemostasis patient brought to recovery stable condition. Plan: Wound does appear to be very slowly healing skin a large collateral around this as long as it heals we will follow if not consider doing the either an endarterectomy this site or a short bypass
== END ==
PROVIDERS: Family Provider Family Medicine Geriatric Medicine; PCP Family Medicine Geriatric Medicine; Visit Provider Surgery Vascular Surgery
DX: I70.213 Atherosclerosis of native arteries of extremities with intermittent claudication, bilateral legs (principal); I21.3 ST elevation (STEMI) myocardial infarction of unspecified site; I96 Gangrene, not elsewhere classified; F32.9 Major depressive disorder, single episode, unspecified; I10 Essential (primary) hypertension; E78.00 Pure hypercholesterolemia, unspecified; Z87.891 Personal history of nicotine dependence; L97.519 Non-pressure chronic ulcer of other part of right foot with unspecified severity
CPT/HCPCS: 36245; 36415; 37225; 75710; 76937; 80069; 85027; 85610; 85730; 99152; 99153; C1725; J3010; J7040; Q9967; C1760; C1769; C1887; C1894

== ENCOUNTER 2018-01-24 13:10 | Inpatient (IN) | payer MEDICARE, SELFPAY ==
[2018-01-24] VITALS (8 sets, daily range): BP systolic 124–153; BP diastolic 57–85; PULSE 72–82; RESP 14–18; TEMP 36.9–37.2; O2SAT 90–96; BMI 40.8; BMI 39.7
--- NOTE | 2018-01-24 13:40 | RAD_ITS ---
STUDY: X-RAY CHEST REASON FOR EXAM: Female, 77 years old. FEVER S/P ANGIOPLASTY 1 DAY AGO; CABG; H/O MT TECHNIQUE: Single AP portable view of the chest. COMPARISON: December 03, 2017 FINDINGS: Lungs are underexpanded with bibasilar compression of lung markings/atelectasis. There is stable minimal left upper lobe scarring. There is no demonstrated pleural abnormality. Normal size heart. Normal mediastinum and gabi. Normal visualized pulmonary arteries. There is atherosclerotic calcification of the aortic arch with tortuosity. Normal visualized thoracic spine. Normal visualized ribs, clavicles, and shoulders. There is no demonstrated abnormality of the visualized soft tissue structures of the upper abdomen. RAD/Chest 1 View (Portable) IMPRESSION: Lungs are underexpanded with bibasilar compression of lung markings/atelectasis. Electronically Signed: Sarita Contreras MD at 14:42 EDT , Service support ,
[2018-01-24 14:09] LABS: Absolute Lymphocyte Count 1.63 X10^3/ul (0.83-4.51); Absolute Neutrophil Count 11.6 X10^3/uL (2.0-7.7); Basophil# 0.01 X10^3/uL; Basophil% 0.1 % (0-1); Eosinophils% 0.7 % (0-5); Hematocrit 34.7 % (37-47); Hemoglobin 10.8 g/dl (12.0-15.0); Lymphocyte # 1.63 X10^3/ul (4.0); Lymphocyte % 11.4 % (19-41); Mean Corp Hgb Conc 31.1 g/gl (32-36); Mean Corpuscular Hgb 28.1 pg (27.0-32.0); Mean Corpuscular Volume 90.1 fL (81-99); Mean Platelet Vol. 9.1 fl (6.2-12.0); Monocyte# 0.99 X10^3/uL; Monocyte% 6.9 % (0-10); Neutrophil # 11.57 X10^3/uL (2.7-7.7); Neutrophil % 80.6 % (47-70); Platelet Count 279 K/mm3 (150-450); RBC Distribution Width CV 15.4 % (11.6-14.6); RBC Distribution Width SD 50.4 fl (35.1-43.9); Red Blood Count 3.85 M/mm3 (4.2-5.4); White Blood Count 14.3 K/mm3 (4.4-11.0)
[2018-01-24 14:10] LABS: POSITIVE COUNT NO; POSITIVE DIFFERENTIAL NO; POSITIVE MORPHOLOGY NO
[2018-01-24 14:23] LABS: Mucous, Urine 0 SEEN /hpf (<or=2+)
[2018-01-24] MEDS: 0.9% Normal Saline 1,000 ML 150 ML IV (14:24)
[2018-01-24 14:26] LABS: Color, Urine Yellow (Yellow); Glucose, Dipstick Normal (Normal); Ketone-Dipstick Negative (Negative); Leukocyte Esterase-Dipstick 25 /ul (Negative); Nitrite-Dipstick Negative (Negative); Occult Blood-Urine 50 /ul (Negative); Protein-Dipstick 15 mg/dl (Negative); Urine Bilirubin Dipstick Negative (Negative); Urine Clarity Clear (Clear); Urine Urobilinogen Normal (Normal)
[2018-01-24 14:38] LABS: Lactic Acid 1.5 mmol/L (0.4-2.0)
[2018-01-24 14:43] LABS: ALB/GLOB Ratio 0.8 RATIO (0.9-2.4); AST(SGOT) 16 U/L (15-37); Alanine Aminotransfer ALT/SGPT 9 U/L (13-56); Albumin, Serum 3.1 g/dL (3.2-5.0); Alkaline Phosphatase 69 U/L (45-117); Anion Gap 9 (5-15); BUN 29 mg/dL (7-18); BUN/Creat Ratio 13.7 RATIO (10-20); Calcium,Total 9.1 mg/dL (8.5-10.1); Chloride 97 mmol/L (98-107); Creatinine, Serum 2.12 mg/dL (0.55-1.02); EST Glomerular Filtration Rate 24 mL/min (>60); Est Glom Filt Rate - Afr Amer 29 mL/min (>60); Globulin 4.1 g/dL (2.2-4.2); Glucose 111 mg/dL (74-106); Potassium 2.9 mmol/L (3.5-5.1); Protein, Total 7.2 g/dL (6.4-8.2); Sodium Level 137 mmol/L (136-145)
[2018-01-24 14:48] LABS: Yeast-Urine 1+ /hpf (None Seen)
[2018-01-24 14:51] LABS: Red Blood Cells-Urine 0-5 SEEN /hpf (0-5); Squamous Epithelial Cells - UA 10-25 SEEN /hpf (5-10); White Blood Cells 5-10 SEEN /hpf (0-5)
[2018-01-24 14:52] LABS: Bacteria 1+ /hpf (None Seen); White Cell Cast 0-5 SEEN /lpf (None Seen)
--- NOTE | 2018-01-24 15:57 | ED.VISSUMM ---
- ER Visit Summary Date of Service: 01/24/18 Chief Complaint: [Fever] History of Present Illness: The patient is a 77 F [presents to the emergency department with a fever that started this morning. Patient had a procedure yesterday which was an attempted catheterization of her right leg for history of peripheral vascular disease. Patient has 2 black toes on her right foot. The revascularization procedure was not successful. Patient and family were told to watch for fever and seek attention if she developed a fever. Patient denies any significant cough. Patient denies urinary symptoms. Patient really does not have a lot in the way of complaints. Patient's sister did note that her left leg seemed somewhat erythematous today. Patient was being treated recently for cellulitis to the left leg as well as the right leg. Patient does have a history of peripheral vascular disease, hypertension, gout, and history of confusion.] Physical Examination: [HEENT-PERRLA, EOMI. Cranial nerves II through XII grossly intact. TMs clear. Mucous membranes moist. No adenopathy. Cardiovascular-regular rate and rhythm without murmur or ectopy Lungs-clear to auscultation, chest wall stable without crepitus or subcu emphysema Abdomen-normoactive bowel sounds, soft, nontender, no rebound or rigidity, no peritoneal signs. Extremities-intact ?4, normal range of motion, normal pulses, atraumatic]. Patient has black/necrotic discoloration of the fourth and fifth toes on the right foot. Patient has ecchymosis and discoloration of the great toe of the left foot. Feet are warm to touch. Difficult to palpate dorsal pedal and posterior tibial pulses bilaterally. Cap refill is 5 seconds bilaterally. Patient does have faint erythema to the dorsum of the left foot and left lower extremity. Test Results: [CBC with differential obtained showed a white count of 14.3, hemoglobin 10.8, hematocrit 35, platelets 279. Chemistries unremarkable. LFTs were normal. Urinalysis was unremarkable. Influenza was negative. Lactate was 1.5. Chest x-ray did not show any acute infiltrate.] Emergency Department Course and Treatment: [Patient had blood cultures ordered. Patient was started empirically on Unasyn and vancomycin.] Patient was placed on 2 L nasal cannula O2 for a relative hypoxemia of 90% on room air. Treatment Plan: [Admit for IV antibiotics] Disposition: [Admit] Impression: [Fever Cellulitis left leg] This note was generated with [employer] dictation software. It may contain incorrect words, spelling, and punctuation that were not noted in review of the chart prior to signing ED Disposition - Plan for ED Patient: Chief Complaint: Fever Referrals: Karan Knutson Chi, MD [Primary Care Provider] -
--- NOTE | 2018-01-24 17:11 | HP.PCM_ITS ---
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 Status: Chronic (11) Atrial fibrillation with rapid ventricular response Status: Chronic (12) Hyperlipidemia Status: Chronic (13) Gout Status: Chronic (14) Anxiety Status: Chronic (15) Aortic mural thrombus Status: Chronic (16) Insomnia Status: Chronic (17) Carotid artery stenosis Status: Chronic (18) PAOD (peripheral arterial occlusive disease) Status: Chronic (19) Tinea unguium Status: Resolved (20) Toe pain, right Status: Chronic (21) Toe pain, left Status: Resolved (22) DVT (deep venous thrombosis) Status: Chronic (23) Pulmonary emboli Status: Chronic (24) Fall Status: Chronic (25) Debility Status: Chronic (26) Bilateral deep vein thromboses Status: Chronic (27) Hypokalemia Status: Acute (28) Morbid obesity Status: Chronic (29) Iron deficiency anemia Status: Chronic (30) CAD (coronary artery disease) Status: Chronic (31) Morbid obesity with BMI of 40.0-44.9, adult Status: Chronic (32) Non-STEMI (non-ST elevated myocardial infarction) Status: Resolved (33) Orthopnea Status: Chronic (34) Hypertension Status: Chronic (35) Hypercholesterolemia Status: Chronic (36) Descending aorta atherosclerotic plaquin Status: Chronic History of Present Illness Date of Admission: 01/24/18 Chief Complaint: Fever, confusion. The patient is a 77 year old F who presents from long term facility due to reported fever and confusion. Patient underwent right lower extremity angiogram yesterday, 01/23/[address] Marmolejo which demonstrated popliteal occlusion with large collateral. The occlusion was unable to be penetrated. It was recommended that patient possibly undergo bypass if collaterals do not heal chronic wound. Patient denies fever, chills. She is unable to state why she presented to the emergency room. She denies GI/ complaints. Denies shortness of breath, chest pain. Complains of bilateral foot pain which she states is chronic for her. She is wheelchair-bound at nursing facility, she is able to pick it from chair/bed to wheelchair. Patient has been following with Dr. Frank as outpatient for chronic gangrenous wounds on right toes. Patient 's daughter at bedside states that patient was told yesterday by Dr. Marmolejo that if she developed fever following angiogram, she was to return to the emergency room. 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 pectoris (Chronic) Atrial fibrillation with rapid ventricular response (Chronic) Hyperlipidemia (Chronic) Gout (Chronic) Anxiety (Chronic) Aortic mural thrombus (Chronic) Insomnia (Chronic) Carotid artery stenosis (Chronic) PAOD (peripheral arterial occlusive disease) (Chronic) DVT (deep venous thrombosis) (Chronic) Pulmonary emboli (Chronic) Debility (Chronic) Morbid obesity (Chronic) Iron deficiency anemia (Chronic) CAD (coronary artery disease) (Chronic) Morbid obesity with BMI of 40.0-44.9, adult (Chronic) Hypertension (Chronic) Hypercholesterolemia (Chronic) Allergies Latex, Natural Rubber Allergy (Verified 01/24/18 13:18) Itching Sulfa (Sulfonamide Antibiotics) Allergy (Verified 01/24/18 13:18) Other Home Medications: Ambulatory Orders Medication Instructions Recorded Metoprolol(XL)Succ [Toprol Xl 100 mg PO DAILY 09/11/17 (Beta Lokesh)] rosuvastatin 20 mg tablet 20 mg PO QHS 10/16/17 Acetaminophen [Tylenol] 1,000 mg PO Q8H PRN PRN tablet 12/20/17 Aspirin [Aspirin, Baby] 81 mg PO DAILY@0800 tab.chew 12/20/17 Iron Polysaccharide Complex 150 mg PO DAILYCM cap 12/20/17 [Ferrex 150] Melatonin 3 mg PO QHS PRN tab 12/20/17 Oxycodone [Oxyir] 10 mg PO Q4H PRN PRN #30 tablet 12/20/17 Pantoprazole Sodium [Protonix] 40 mg PO DAILY #30 tab 12/20/17 Polyethylene Glycol 3350 [Miralax] 17 gm PO DAILY #30 packet 12/20/17 Potassium Chloride [K-Dur] 20 meq PO DAILYCM tab 12/20/17 Collagenase [Santyl] 1 applic TOPICAL DAILY 12/21/17 Docusate Sodium [Colace] 100 mg PO DAILY 12/21/17 Febuxostat [Uloric] 40 mg PO DAILY 12/21/17 Menthol/Lanolin/Calamine/Znox 1 applic TOPICAL BID 12/21/17 [Calmoseptine Ointment] Paroxetine HCl 20 mg PO DAILY 12/21/17 alprazolam 0.25 mg tablet 0.25 mg PO .As needed tab 01/01/18 Apixaban [Eliquis] 5 mg PO BID 01/02/18 Oxycodone HCl [Oxycontin] 10 mg PO DAILY 01/04/18 Furosemide [Furosemide] 40 mg PO DAILY 01/24/18 Nystatin Powder [Mycostatin Powder] 1 applic TOPICAL BID 01/24/18 Surgical History: coronary bypass surgery - x 4., hysterectomy, tonsillectomy Psychiatric History: Anxiety, Depression, - - insomnia 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 Lives: Half-Way Smoking Status: Former smoker Alcohol: None Drugs: None - *Family History Paternal History Items: No pertinent history Maternal History Items: No pertinent history Review of Systems Constitutional: Denies: Chills, Fever, Fatigue HEENT: Denies: Head Aches, Sinus Congestion, Sinus Drainage Cardiovascular: Denies: Chest Pain, Palpitations Respiratory: Denies: Cough, Shortness of breath at rest, Sputum production Gastrointestinal: Denies: Abdominal Pain, Nausea, Vomiting Genitourinary: Denies: Dysuria Musculoskeletal: Denies: Joint Pain, Joint Tenderness Skin: Reports: Wounds - Chronic wounds toes of right foot. Denies: Rash Neurological: Reports: Confusion. Denies: Focal weakness, Numbness, Tingling Psychiatric: Reports: Anxiety, Depression Hematologic/ Lymphatic: Denies: Easy Bruising, Easy Bleeding VTE Information - Inpt Only VTE Present on Admission: No VTE Mechan Device Prophylaxis: None VTE Pharm Prophylaxis ordered?: Yes - Physical Exam General: Alert, Cooperative, No apparent distress, Confused HEENT: Atraumatic, PERRLA, EOMI, Normocephalic Neck: Supple, No JVD, Negative Carotid Bruits Lungs: Clear to auscultation, Diminished Cardiovascular: Regular rate, No murmurs Abdomen: Bowel Sounds Present, Soft, Non Tender, Non-Distended, Obese Extremities: No edema, Diminished Peripheral Pulses, - - Necrotic discoloration of the fourth and fifth toes on the right foot. Ecchymosis of the left great toe. Slight redness and warmth on the top of left foot. Musculoskeletal: No Tenderness to Palpation of Joints or Extremities Neurological: Cranial nerves II-XII grossly intact, Neuro grossly intact, - - Sensory intact Psych/Mental Status: Normal Affect, Appropriate Vital Signs Temp Pulse Resp BP Pulse Ox 99.0 F 74 14 124/72 H 94 01/24/18 13:11 01/24/18 16:19 01/24/18 16:19 01/24/18 13:11 01/24/18 16:19 Oxygen Flow Rate (L/min) 2 Oxygen Delivery Method Nasal Cannula Weight: 108.1 kg Body Mass Index (BMI) 40.8 Microbiology Past 72 Hours 01/24/18 14:31 Influenza Types A,B Direct FA (MICHAEL) - Final Mucosa - Nose Laboratory Tests Past 24 Hrs 01/24/18 01/24/18 01/24/18 13:57 13:57 13:57 WBC 14.3 H RBC 3.85 L Hgb 10.8 L Hct 34.7 L MCV 90.1 MCH 28.1 MCHC 31.1 L RDW 15.4 H RDW Differential 50.4 H Plt Count 279 MPV 9.1 Immature Gran % (Auto) 0.300 Neut % (Auto) 80.6 H Lymph % (Auto) 11.4 L Prowers % (Auto) 6.9 Eos % (Auto) 0.7 Baso % (Auto) 0.1 Absolute Neuts (auto) 11.6 H Absolute Lymphs (auto) 1.63 Total Counted Not Reportable Sodium 137 Potassium 2.9 L Chloride 97 L Carbon Dioxide 31.0 Anion Gap 9 BUN 29 H Creatinine 2.12 H Estim Creat Clear Calc 19.80 Est GFR (MDRD) Af Amer 29 L Est GFR (MDRD) Non-Af 24 L BUN/Creatinine Ratio 13.7 Glucose 111 H Lactic Acid 1.5 Calcium 9.1 Total Bilirubin 1.00 AST 16 ALT 9 L Alkaline Phosphatase 69 Total Protein 7.2 Albumin 3.1 L Globulin 4.1 Albumin/Globulin Ratio 0.8 L Urine Color Urine Clarity Urine pH Ur Specific Sterling Urine Protein Urine Glucose (UA) Urine Ketones Urine Occult Blood Urine Nitrite Urine Bilirubin Urine Urobilinogen Ur Leukocyte Esterase Urine RBC Urine WBC Ur Squamous Epith Cells Urine Bacteria WBC Casts Urine Mucus Urine Yeast 01/24/18 14:15 WBC RBC Hgb Hct MCV MCH MCHC RDW RDW Differential Plt Count MPV Immature Gran % (Auto) Neut % (Auto) Lymph % (Auto) Prowers % (Auto) Eos % (Auto) Baso % (Auto) Absolute Neuts (auto) Absolute Lymphs (auto) Total Counted Sodium Potassium Chloride Carbon Dioxide Anion Gap BUN Creatinine Estim Creat Clear Calc Est GFR (MDRD) Af Amer Est GFR (MDRD) Non-Af BUN/Creatinine Ratio Glucose Lactic Acid Calcium Total Bilirubin AST ALT Alkaline Phosphatase Total Protein Albumin Globulin Albumin/Globulin Ratio Urine Color Yellow Urine Clarity Clear Urine pH 5.0 Ur Specific Sterling 1.010 Urine Protein 15 H Urine Glucose (UA) Normal Urine Ketones Negative Urine Occult Blood 50 H Urine Nitrite Negative Urine Bilirubin Negative Urine Urobilinogen Normal Ur Leukocyte Esterase 25 H Urine RBC 0-5 SEEN Urine WBC 5-10 SEEN Ur Squamous Epith Cells 10-25 SEEN Urine Bacteria 1+ WBC Casts 0-5 SEEN Urine Mucus 0 SEEN Urine Yeast 1+ Assessment/Plan 1. Fever, leukocytosis, confusion-does not meet sepsis criteria. Unclear etiology although cellulitis of left lower extremity is suspected. Patient has history of peripheral arterial occlusive disease with chronic nonhealing necrotic wounds of the right third and fourth toes. Left great toe is also ecchymotic. Patient underwent right lower extremity angiogram yesterday, [address] Marmolejo which demonstrated popliteal occlusion with large collateral. The occlusion was unable to be penetrated. Patient was instructed to return to emergency room if she developed fever following surgery. Patient has minimal redness and warmth to left lower extremity. No open wound noted. Patient was started on Unasyn and vancomycin in the ER. Continue pending blood cultures. T-max 99.0 since admission. WBC 14.3. Consult Dr. Frank who patient follows with as outpatient. Consult wound RN. Urinalysis unremarkable. Chest x-ray on admission showed underexpanded lungs with bibasilar compression of lung markings/atelectasis. Lactic acid within normal limits. 2. Acute kidney injury on chronic kidney disease-baseline creatinine 1.4. Creatinine admission 2.1. Gentle IV fluids. Monitor BMP. Hold home Lasix regimen. 3. Hypokalemia-replaced orally. Monitor BMP. 4. CAD status post CABG-continue aspirin, statin, Eliquis, beta-lokesh. 5. History of DVT/PE on chronic anticoagulation with Eliquis 6. History of atrial fibrillation-rate controlled. Continue metoprolol and Eliquis. 7. History of upper GI bleed-hemoglobin stable. Continue PPI. 8. Chronic iron deficiency anemia-hemoglobin stable. Continue iron supplementation. 9. Hypertension-stable, continue home regimen. 10. Hyperlipidemia-continue statin. 11. Carotid artery stenosis-continue aspirin, statin. 12. Anxiety/depression-continue home regimen. 13. Gout-continue home uloric regimen. 14. 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 Encourage diet and lifestyle modifications. 15. Physical debility with history of falls-fall precautions. PT/OT. DVT prophylaxis-Eliquis. This patient was seen by FERCHO Castro under the supervision of Dr. Martin. <Sue Martin - Last Filed: 01/24/18 20:24> History of Present Illness The patient is a 77 year old F [] Past Medical History Allergies Latex, Natural Rubber Allergy (Verified 01/24/18 13:18) Itching Sulfa (Sulfonamide Antibiotics) Allergy (Verified 01/24/18 13:18) Other - Physical Exam Vital Signs Temp Pulse Resp BP Pulse Ox 98.8 F 82 16 153/85 H 94 01/24/18 17:40 01/24/18 18:50 01/24/18 17:40 01/24/18 17:40 01/24/18 17:40 Oxygen Delivery Method Room Air Weight: 231 lb 7.766 oz Body Mass Index (BMI) 39.7 Assessment/Plan Hospitalist note: I am seeing this patient in conjunction with Fern Mathew. I independently seen and examined the patient. History and physical, laboratory data and imaging studies reviewed and I agree with the above admission and treatment plan. Patient was transferred from long term because of fever and reported confusion. She denied cough or sputum production. She denies abdominal pain, nausea or vomiting. She denied constipation or diarrhea. She denies urinary symptoms. Yesterday, she had right lower extremity angiography by Dr. Marmolejo for peripheral vascular disease and gangrene of the right third and fifth toe and that was unsuccessful. At this time, she complained of right foot pain, dull aching pain, aggravated even by light touch, constant pain. She denied chest pain or shortness of breath. She has a history of DVTs and PE and she has been on Eliquis chronically. She had a history of chronic atrial fibrillation and she has been on metoprolol for rate control and Eliquis for anticoagulation. She has history of CAD status post CABG and she has been on aspirin, statins and beta blockers which seemed to be stable. She had a history of stage III chronic kidney disease with baseline creatinine of 1.1-1.6 mg/dL and on admission, creatinine was 2.12 indicating acute kidney injury on top of chronic kidney disease. Her vital signs are stable and she is afebrile at this time. - Physical Exam General: Alert, Cooperative, No apparent distress. HEENT: Atraumatic, PERRLA, EOMI. Neck: Supple, No JVD, Negative Carotid Bruits, Trachea Midline, Thyroid Normal. Lungs: Diminished breath sounds bilateral, otherwise clear, No rhonchi, No wheeze, No rales. Cardiovascular: Regular rate, Regular Rhythm, Normal S1, Normal S2, PMI Normal. Abdomen: Bowel Sounds Present, Soft, Non Tender, Non-Distended, No Hepato- splenomegaly. Extremities: No clubbing. Wet gangrene on the top of the right third and fifth toes with surrounding mild erythema. Left big toe is dusky in color without evidence of gangrene. Neurological: Neuro grossly intact Vital Signs are stable. Assessment and plan: #1 fever/leukocytosis: Without obvious source of infection. Probably due to infection of the with gangrene of the right third and fifth toe. No evidence of sepsis or severe sepsis. Lactic acid is normal. Started on IV Unasyn and vancomycin, blood cultures sent. I will order stat wound culture as well as urine culture. #2 right third and fifth toe gangrene: With possible superimposed secondary bacterial infection. Patient had a history of severe peripheral vascular disease, underwent angiography yesterday that was unsuccessful by Dr. Marmolejo. At this time, no evidence of acute ischemia of the right lower extremity. Left big toe also is dusky without evidence of acute gangrene. Plan for IV antibiotics as above, blood culture, wound culture, podiatry medicine consult. #3 acute kidney injury on top of stage III chronic kidney disease: Admission creatinine is 2.12, baseline creatinine is around 1.1-1.6 mg/dL. Plan for IV fluids, input output chart, repeat BMP tomorrow morning. #4 hypokalemia: Potassium is 2.9. Patient received oral potassium supplement, she is on scheduled potassium chloride p.o., plan to repeat BMP tomorrow morning. #5 other chronic medical problems stable, continue current medications as above. This note was generated with [employer] dictation software. It may contain incorrect words, spelling, and punctuation that were not noted in checking the note before signing. Code Visit Inpatient E&M: 23640 Init Hosp L3
[2018-01-24 18:23] LABS: Uric Acid 7.4 mg/dL (2.6-6.0)
[2018-01-24] MEDS: oxyCODONE 5 MG Tablet 10 MG PO (18:26)
--- NOTE | 2018-01-24 20:28 | PCM.PROGNOTE ---
Subjective: This patient with multiple comorbidities was seen bedside for necrosis of the right foot toes and bilateral foot pain. She had an attempted angioplasty performed yesterday in which revascularization was not possible. She has continued toe pain that is unchanged. She denies current fever, chills. Her daughter is bedside. - Physical Exam General: Alert, Oriented x3, Cooperative Extremities: No Calf Tenderness - negative che and lechuga signs bialteral, Diminished Peripheral Pulses, Edema - mild bilateral, Tenderness - palpate all toes bilateral Skin: Ulcer/ Wound - necrotic dry eschar to digits 3 and 5 right foot unchanged from most recent outpatient clinical visit. There is still lack of capillary fill time to hallux and third toe of the left foot without ulcer or eschar noted. no erythema, no streaking, no drainage to bilateral foot. No foot or ankle infection noted. The capillary fill time to bilateral heels are noted and there is not a decubitus heel ulcer noted. Musculoskeletal: No Tenderness to Palpation of Joints or Extremities, Muscle Wasting, - - pain to palpate all toes. AROM noted to all toes bilateral Neurological: Sensory exam intact to light touch and pain Psych/Mental Status: Normal Affect, Appropriate Vital Signs Temp Pulse Resp BP Pulse Ox 98.8 F 82 16 153/85 H 94 01/24/18 17:40 01/24/18 18:50 01/24/18 17:40 01/24/18 17:40 01/24/18 17:40 Oxygen Delivery Method Room Air Weight: 105 kg Body Mass Index (BMI) 39.7 Assessment/Plan gangrene right third and fifth toe distal tips will be monitored - stable, no infection left distal hallux and third toe cyanosis noted- no ulcer or infection Multiple comorbidities noted I reviewed findings with her. She has discolored and eschar toes as noted. Her leukocytosis and reported confusion are noted. There are no acute signs of infection bilateral lower extremity. She had a recent revascularization attempt in which the occlusion was not able to be penetrated. Her status will be monitored at this time. If lack of improvement is noted, Dr. Marmolejo recommended considering an enterectomy or a short bypass. I recommend changing the dressing daily with Santyl to the right foot: This order was placed. No dressing is recommended for the left foot. To WBAT with bilateral foot surgical shoes. To offload the heels while seated or laying down to avoid decubitus ulcer formation. Medical management, DVT prophylaxis, and pain control per primary team is appreciated. Podiatry will continue to follow on a weekly basis. Please not hesitate to call if you have any questions. Sherrell Frank DPM [facility] [phone]
[2018-01-24] MEDS: Menthol/Lanolin/Calamine/Znox 113 GM Tube 1 APPLIC TOPICAL (22:01)
[2018-01-25] VITALS (13 sets, daily range): BP systolic 138–156; BP diastolic 57–96; PULSE 72–89; RESP 14–18; TEMP 36.5–36.9; O2SAT 92–95
[2018-01-25] MEDS: CLARIFY ORDER NOTE (01:56)
[2018-01-25] MEDS: Collagenase 30gm Tube 1 APPLIC TOPICAL (05:20)
[2018-01-25] MEDS: Iron Polysaccharide Complex 150 MG CAPSULE PO (08:33)
[2018-01-25] MEDS: Aspirin 81 MG TAB.CHEW PO (08:33)
[2018-01-25] MEDS: Docusate Sodium 100 MG Capsule PO (08:34)
[2018-01-25] MEDS: Metoprolol(XL)Succ 100 MG Tablet PO (08:34)
[2018-01-25] MEDS: Menthol/Lanolin/Calamine/Znox 113 GM Tube 1 APPLIC TOPICAL ×2 (08:42→21:23)
[2018-01-25] MEDS: oxyCODONE HCl Cr 10 MG Tablet PO (08:43)
[2018-01-25] MEDS: Pantoprazole Sodium 40 MG Tablet PO (08:43)
[2018-01-25] MEDS: FEBUXOSTAT 40 MG TABLET PO (08:43)
[2018-01-25] MEDS: APIXABAN 5 MG TABLET PO ×2 (08:43→21:23)
--- NOTE | 2018-01-25 08:56 | PCM.RX.CS ---
Consult Pharmacy has been consulted to manage selected antiobiotic: Vancomycin Type of Consult: New start Suspected Infection: Skin/Soft tissue Prior Doses of Antibiotics Received/Current Regimen: 01/24/18 ER dose was DC'd Labs: Random level will be drawn at 0600 on 01/26/18 Sodium 137 mmol/L (136-145) 01/24/18 13:57 Potassium 2.9 mmol/L (3.5-5.1) L 01/24/18 13:57 Chloride 97 mmol/L (98-107) L 01/24/18 13:57 Carbon Dioxide 31.0 mmol/L (21.0-32.0) 01/24/18 13:57 Anion Gap 9 (5-15) 01/24/18 13:57 BUN 29 mg/dL (7-18) H 01/24/18 13:57 Creatinine 2.12 mg/dL (0.55-1.02) H 01/24/18 13:57 Est GFR (MDRD) Af Amer 29 mL/min (>60) L 01/24/18 13:57 Est GFR (MDRD) Non-Af 24 mL/min (>60) L 01/24/18 13:57 BUN/Creatinine Ratio 13.7 RATIO (10-20) 01/24/18 13:57 Glucose 111 mg/dL (74-106) H 01/24/18 13:57 Microbiology: cultures pending Weight used for dosin kg Estimated Creatinine Clearance: 19.8ml/min Goal Trough: 10-15 mcg/mL Pharmacy Plan for Drug Dosing: Vancomycin 1500mg x1 (15mg/kg) was ordered per renal dosing protocol. Random level will be checked at 0600 the day following the dose. Pt's Vancomycin dose will be adjusted to maintain a goal trough of 10-15mcg/ml. Pharmacy Service will continue to monitor and adjust dosing as required. Follow-Up Labs: Trough Vancomycin - Random level (renal dosing protocol) Labs to be done on [date and time ordered]: 01/26/18 at 0600
[2018-01-25 09:17] LABS: Absolute Lymphocyte Count 1.38 X10^3/ul (0.83-4.51); Absolute Neutrophil Count 8.6 X10^3/uL (2.0-7.7); Basophil# 0.02 X10^3/uL; Basophil% 0.2 % (0-1); Eosinophil# 0.34 X10^3/uL; Hematocrit 34.3 % (37-47); Hemoglobin 10.8 g/dl (12.0-15.0); Lymphocyte # 1.38 X10^3/ul (4.0); Lymphocyte % 12.1 % (19-41); Mean Corp Hgb Conc 31.5 g/gl (32-36); Mean Corpuscular Hgb 28.3 pg (27.0-32.0); Mean Corpuscular Volume 89.8 fL (81-99); Mean Platelet Vol. 9.6 fl (6.2-12.0); Monocyte# 1.09 X10^3/uL; Monocyte% 9.6 % (0-10); Neutrophil # 8.55 X10^3/uL (2.7-7.7); Neutrophil % 74.8 % (47-70); Platelet Count 280 K/mm3 (150-450); RBC Distribution Width CV 15.2 % (11.6-14.6); RBC Distribution Width SD 49.3 fl (35.1-43.9); Red Blood Count 3.82 M/mm3 (4.2-5.4); White Blood Count 11.4 K/mm3 (4.4-11.0)
[2018-01-25 09:20] LABS: POSITIVE COUNT NO; POSITIVE DIFFERENTIAL NO; POSITIVE MORPHOLOGY NO
[2018-01-25 09:37] LABS: Anion Gap 8 (5-15); BUN 26 mg/dL (7-18); BUN/Creat Ratio 14.1 RATIO (10-20); Chloride 101 mmol/L (98-107); Creatinine, Serum 1.84 mg/dL (0.55-1.02); EST Glomerular Filtration Rate 28 mL/min (>60); Est Glom Filt Rate - Afr Amer 34 mL/min (>60); Estimated Creatinine Clearance 22.81 ml/min; Glucose 96 mg/dL (74-106); Potassium 3.4 mmol/L (3.5-5.1); Sodium Level 139 mmol/L (136-145)
--- NOTE | 2018-01-25 11:50 | PN_ITS ---
<Fern Mathew - Last Filed: 01/25/18 12:01> Subjective: Patient seen and examined. Confused this morning. States she is in [place]. Continues to complain of bilateral foot pain which she states has not improved. States pain is not greater in one foot over the other. Denies fever, chills. Denies other complaints. - Physical Exam General: Alert, No apparent distress, Confused HEENT: Atraumatic, PERRLA, EOMI, Normocephalic Neck: Supple, No JVD, Negative Carotid Bruits Lungs: Clear to auscultation, Diminished Cardiovascular: Regular rate, Regular Rhythm, Normal S1, Normal S2, No murmurs Abdomen: Bowel Sounds Present, Soft, Non Tender, Non-Distended, Obese Extremities: No clubbing, No cyanosis Skin: - - Necrotic discoloration of the third and fifth toes on the right foot. Left great toe is dusky in color without evidence of gangrene. Left lower extremity mild erythema improved. Musculoskeletal: No Tenderness to Palpation of Joints or Extremities Neurological: Cranial nerves II-XII grossly intact, Neuro grossly intact Psych/Mental Status: Normal Affect Vital Signs Temp Pulse Resp BP Pulse Ox 98.4 F 84 18 146/77 H 92 01/25/18 08:23 01/25/18 08:34 01/25/18 08:23 01/25/18 08:34 01/25/18 08:23 Oxygen Delivery Method Room Air Weight: 105 kg Body Mass Index (BMI) 39.7 Intake and Output for Last 24 Hours 01/23/18 01/24/18 01/25/18 23:59 23:59 23:59 Intake Total 1045 / 1045 480 / 480 Balance 1045 / 1045 480 / 480 Laboratory Tests Past 24 Hrs 01/25/18 01/25/18 08:50 08:50 WBC 11.4 H RBC 3.82 L Hgb 10.8 L Hct 34.3 L MCV 89.8 MCH 28.3 MCHC 31.5 L RDW 15.2 H RDW Differential 49.3 H Plt Count 280 MPV 9.6 Immature Gran % (Auto) 0.300 Neut % (Auto) 74.8 H Lymph % (Auto) 12.1 L [place] % (Auto) 9.6 Eos % (Auto) 3.0 Baso % (Auto) 0.2 Absolute Neuts (auto) 8.6 H Absolute Lymphs (auto) 1.38 Total Counted Not Reportable Sodium 139 Potassium 3.4 L Chloride 101 Carbon Dioxide 30.0 Anion Gap 8 BUN 26 H Creatinine 1.84 H Estim Creat Clear Calc 22.81 Est GFR (MDRD) Af Amer 34 L Est GFR (MDRD) Non-Af 28 L BUN/Creatinine Ratio 14.1 Glucose 96 Calcium 9.0 Assessment/Plan Patient is a 77-year-old female admitted 01/24/2018 due to fever, confusion. 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 1. Fever, leukocytosis, confusion-does not meet sepsis criteria. Unclear etiology although cellulitis of left lower extremity versus necrotic wounds of the right third and fifth toes is suspected. Patient has history of peripheral arterial occlusive disease with chronic nonhealing necrotic wounds of the right third and fifth toes. Left great toe is also dusky appearing. Patient underwent right lower extremity angiogram 01/23/[address] Marmolejo which demonstrated popliteal occlusion with large collateral. The occlusion was unable to be penetrated. Patient was instructed to return to emergency room if she developed fever following surgery. Patient has minimal redness and warmth to left lower extremity. This has improved overnight with IV antibiotics. No open wound noted. Continue IV Unasyn and vancomycin pending blood cultures. T- max 99.0 since admission. WBC improved to 11.4. Dr. Frank consulted who patient follows with as outpatient. She does not suspect infection is related to gangrenous toes. Continue dressing changes daily with Santyl to the right foot. WBAT with bilateral foot surgical shoes. Consult wound RN. Urinalysis unremarkable, culture sent. Chest x-ray on admission showed under expanded lungs with bibasilar compression of lung markings/atelectasis. Lactic acid within normal limits. Wound culture pending. 2. Acute kidney injury on chronic kidney disease-baseline creatinine 1.4. Creatinine admission 2.1. Improved with IV fluids. Monitor BMP. Hold home Lasix regimen. 3. Hypokalemia-replaced orally. Monitor BMP. 4. CAD status post CABG-continue aspirin, statin, Eliquis, beta-josé miguel. 5. History of DVT/PE on chronic anticoagulation with Eliquis 6. History of atrial fibrillation-rate controlled. Continue metoprolol and Eliquis. 7. History of upper GI bleed-hemoglobin stable. Continue PPI. 8. Chronic iron deficiency anemia-hemoglobin stable. Continue iron supplementation. 9. Hypertension-stable, continue home regimen. 10. Hyperlipidemia-continue statin. 11. Carotid artery stenosis-continue aspirin, statin. 12. Anxiety/depression-continue home regimen. 13. Gout-continue home uloric regimen. Do not suspect acute gout. 14. Morbid obesity- nutrition/category development manager consult. Encourage diet and lifestyle modifications. 15. Physical debility with history of falls-fall precautions. PT/OT. DVT prophylaxis-Eliquis. This patient was seen by FERCHO Castro under the supervision of Dr. Short. <Scott Short - Last Filed: 01/25/18 15:52> Subjective: Patient complain of bilateral feet pain especially on toes. Toes are black in color, chronic in nature - Physical Exam Musculoskeletal: Arthritic Changes Vital Signs Temp Pulse Resp BP Pulse Ox 98.0 F 89 18 142/73 H 93 01/25/18 14:08 01/25/18 14:08 01/25/18 14:08 01/25/18 14:08 01/25/18 14:08 Oxygen Delivery Method Room Air Weight: 231 lb 7.766 oz Body Mass Index (BMI) 39.7 Intake and Output for Last 24 Hours 01/23/18 01/24/18 01/25/18 23:59 23:59 23:59 Intake Total 1045 / 1045 1081 / 1081 Balance 1045 / 1045 1081 / 1081 Microbiology Past 72 Hours 01/24/18 22:34 Gram Stain - Final Wound - Right Foot Wound Culture - Preliminary Staphylococcus species Laboratory Tests Past 24 Hrs 01/25/18 01/25/18 08:50 08:50 WBC 11.4 H RBC 3.82 L Hgb 10.8 L Hct 34.3 L MCV 89.8 MCH 28.3 MCHC 31.5 L RDW 15.2 H RDW Differential 49.3 H Plt Count 280 MPV 9.6 Immature Gran % (Auto) 0.300 Neut % (Auto) 74.8 H Lymph % (Auto) 12.1 L [place] % (Auto) 9.6 Eos % (Auto) 3.0 Baso % (Auto) 0.2 Absolute Neuts (auto) 8.6 H Absolute Lymphs (auto) 1.38 Total Counted Not Reportable Sodium 139 Potassium 3.4 L Chloride 101 Carbon Dioxide 30.0 Anion Gap 8 BUN 26 H Creatinine 1.84 H Estim Creat Clear Calc 22.81 Est GFR (MDRD) Af Amer 34 L Est GFR (MDRD) Non-Af 28 L BUN/Creatinine Ratio 14.1 Glucose 96 Calcium 9.0 Assessment/Plan This patient was seen in conjunction with Fern BOWIE. I have independently interviewed and examined the patient and reviewed pertinent history, examination findings, laboratory and plan of management. I have reviewed the note and agree with the documented findings with the few additional points. In brief, patient is admitted for necrotic wound of toes of right foot. Left foot toes are also dusky/cyanosed nontender. Patient is on empirically IV vancomycin for for presumed cellulitis. Dr. Kye Kemp has been consulted. Patient had angiogram on 01/23/2018 as mentioned above I have discussed my assessment with Fern BOWIE and orders have been reviewed. Code Visit Inpatient E&M: 59239 Subs Hosp L3
--- NOTE | 2018-01-25 14:23 | CASEMGMT ---
THUAN called [facility] and spoke with Kayleen. She said patient normally stands and pivots, she may take a few steps. She said they are fine with taking her back when she is ready. THUAN told her that she may be ready over the weekend. THUAN faxed them clinicals. THUAN spoke with patient and her daughter and the plan is for patient to return to [facility] and they would prefer transport be arranged at d/c. Green sheet on chart. Plan: return to [facility] [place]. Staff to set up transport. Donita GREEN MSW
--- NOTE | 2018-01-25 14:55 | NURSING ---
wound photo: left foot
--- NOTE | 2018-01-25 14:55 | NURSING ---
wound photo: right foot
--- NOTE | 2018-01-25 15:32 | NURSING ---
THIS RN ASSUMING CARE OF PT AT 1520
[2018-01-25] MEDS: MELATONIN 3 MG TABLET PO (21:22)
[2018-01-25] MEDS: Atorvastatin Calcium 40 MG Tablet PO (21:23)
[2018-01-26] VITALS (15 sets, daily range): BP systolic 144–183; BP diastolic 61–85; PULSE 72–81; RESP 12–16; TEMP 36.6–37.3; O2SAT 93–96
--- NOTE | 2018-01-26 05:41 | NURSING ---
all patient care, medication administration, & documentation by SN Leanne, supervised by this RN.
[2018-01-26] MEDS: hydrALAZINE 20 MG/ML Vial 10 MG IV (05:51)
[2018-01-26 06:42] LABS: Hematocrit 36.5 % (37-47); Mean Corp Hgb Conc 30.1 g/gl (32-36); Mean Corpuscular Hgb 28.1 pg (27.0-32.0); Mean Corpuscular Volume 93.4 fL (81-99); Mean Platelet Vol. 9.7 fl (6.2-12.0); Platelet Count 238 K/mm3 (150-450); RBC Distribution Width CV 15.8 % (11.6-14.6); RBC Distribution Width SD 53.4 fl (35.1-43.9); Red Blood Count 3.91 M/mm3 (4.2-5.4); Scan Indicated on CBC? Y/N NO; White Blood Count 8.3 K/mm3 (4.4-11.0)
[2018-01-26 07:16] LABS: Vancomycin, Random Level 12.8 ug/mL (0.0-15.0)
[2018-01-26 07:21] LABS: Anion Gap 12 (5-15); BUN 25 mg/dL (7-18); BUN/Creat Ratio 15.9 RATIO (10-20); Chloride 106 mmol/L (98-107); Creatinine, Serum 1.57 mg/dL (0.55-1.02); EST Glomerular Filtration Rate 34 mL/min (>60); Est Glom Filt Rate - Afr Amer 41 mL/min (>60); Estimated Creatinine Clearance 26.74 ml/min; Glucose 97 mg/dL (74-106); Potassium 3.8 mmol/L (3.5-5.1); Sodium Level 145 mmol/L (136-145)
--- NOTE | 2018-01-26 07:38 | PCM.RX.CS ---
Consult Pharmacy has been consulted to manage selected antiobiotic: Vancomycin Type of Consult: Follow-up Suspected Infection: Skin/Soft tissue Prior Doses of Antibiotics Received/Current Regimen: Medications Vancomycin HCl 1,500 mg/ (Sodium Chloride) 530 mls @ 250 mls/hr IV X1 ONE Stop: 01/25/18 10:37 Last Admin: 01/25/18 11:00 Dose: 250 mls/hr Labs: Sodium 145 mmol/L (136-145) 01/26/18 06:18 Potassium 3.8 mmol/L (3.5-5.1) 01/26/18 06:18 Chloride 106 mmol/L (98-107) 01/26/18 06:18 Carbon Dioxide 27.0 mmol/L (21.0-32.0) 01/26/18 06:18 Anion Gap 12 (5-15) 01/26/18 06:18 BUN 25 mg/dL (7-18) H 01/26/18 06:18 Creatinine 1.57 mg/dL (0.55-1.02) H 01/26/18 06:18 Est GFR (MDRD) Af Amer 41 mL/min (>60) L 01/26/18 06:18 Est GFR (MDRD) Non-Af 34 mL/min (>60) L 01/26/18 06:18 BUN/Creatinine Ratio 15.9 RATIO (10-20) 01/26/18 06:18 Glucose 97 mg/dL (74-106) 01/26/18 06:18 Random Vancomycin 12.8 ug/mL (0.0-15.0) 01/26/18 06:18 Microbiology: Microbiology 01/24/18 22:34 Wound - Right Foot Gram Stain - Final 01/24/18 22:34 Wound - Right Foot Wound Culture - Preliminary Staphylococcus species Weight used for dosin kg Estimated Creatinine Clearance: 27 mL/min Goal Trough: 10-15 mcg/mL Pharmacy Plan for Drug Dosing: Recommend taking patient off of renal nomogram, change to 1000mg IV q24h. Check trough Sunday. Pharmacy Service will continue to monitor and adjust dosing as required. Follow-Up Labs: Trough Vancomycin Labs to be done on [date and time ordered]: 01/28/18 @ 0900
[2018-01-26] MEDS: Pantoprazole Sodium 40 MG Tablet PO (09:12)
[2018-01-26] MEDS: Iron Polysaccharide Complex 150 MG CAPSULE PO (09:13)
[2018-01-26] MEDS: Metoprolol(XL)Succ 100 MG Tablet PO (09:13)
[2018-01-26] MEDS: Aspirin 81 MG TAB.CHEW PO (09:13)
[2018-01-26] MEDS: FEBUXOSTAT 40 MG TABLET PO (09:13)
[2018-01-26] MEDS: Docusate Sodium 100 MG Capsule PO (09:13)
[2018-01-26] MEDS: APIXABAN 5 MG TABLET PO ×2 (09:15→22:43)
[2018-01-26] MEDS: Menthol/Lanolin/Calamine/Znox 113 GM Tube 1 APPLIC TOPICAL ×2 (09:16→22:42)
[2018-01-26] MEDS: Collagenase 30gm Tube 1 APPLIC TOPICAL (09:16)
[2018-01-26] MEDS: oxyCODONE HCl Cr 10 MG Tablet PO (09:25)
--- NOTE | 2018-01-26 09:51 | PN_ITS ---
<Fern Mathew - Last Filed: 01/26/18 10:00> Subjective: Patient seen and examined. Remains confused. Denies significant pain. States she does not feel improved but denies any specific complaints. - Physical Exam General: Alert, Cooperative, No apparent distress, Confused HEENT: Atraumatic, PERRLA, EOMI, Normocephalic Neck: Supple, No JVD, Negative Carotid Bruits Lungs: Clear to auscultation, Diminished Cardiovascular: Regular rate, Regular Rhythm, Normal S1, Normal S2, No murmurs Abdomen: Bowel Sounds Present, Soft, Non Tender, Non-Distended, Obese Extremities: No clubbing, No cyanosis, No edema, Capillary Refill Less than 3 Seconds Skin: - - Necrotic discoloration of the third and fifth toes on the right foot. Left great toe is dusky in color without evidence of gangrene. Left lower extremity mild erythema improved. Musculoskeletal: No Tenderness to Palpation of Joints or Extremities Neurological: Cranial nerves II-XII grossly intact, Neuro grossly intact Psych/Mental Status: Normal Affect Vital Signs Temp Pulse Resp BP Pulse Ox 98.3 F 73 14 183/74 H 94 01/26/18 08:00 01/26/18 09:13 01/26/18 08:00 01/26/18 08:00 01/26/18 08:00 Oxygen Delivery Method Room Air Weight: 105 kg Body Mass Index (BMI) 39.7 Intake and Output for Last 24 Hours 01/24/18 01/25/18 01/26/18 23:59 23:59 23:59 Intake Total 1045 / 1045 1913.2 / 1913.2 60 / 60 Balance 1045 / 1045 1913.2 / 1913.2 60 / 60 Microbiology Past 72 Hours 01/24/18 22:34 Gram Stain - Final Wound - Right Foot Wound Culture - Preliminary Staphylococcus aureus Laboratory Tests Past 24 Hrs 01/26/18 01/26/18 01/26/18 06:18 06:18 06:18 WBC 8.3 RBC 3.91 L Hgb 11.0 L Hct 36.5 L MCV 93.4 MCH 28.1 MCHC 30.1 L RDW 15.8 H RDW Differential 53.4 H Plt Count 238 MPV 9.7 Sodium 145 Potassium 3.8 Chloride 106 Carbon Dioxide 27.0 Anion Gap 12 BUN 25 H Creatinine 1.57 H Estim Creat Clear Calc 26.74 Est GFR (MDRD) Af Amer 41 L Est GFR (MDRD) Non-Af 34 L BUN/Creatinine Ratio 15.9 Glucose 97 Calcium 9.0 Random Vancomycin 12.8 Medical Necessity - Tobacco Use Smoking Status: Former smoker Assessment/Plan Patient is a 77-year-old female admitted 01/24/2018 due to fever, confusion. 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 1. Fever, leukocytosis, confusion-does not meet sepsis criteria. Unclear etiology. Patient has history of peripheral arterial occlusive disease secondary to atherosclerosis with chronic nonhealing necrotic wounds of the right third and fifth toes. Left great toe is also dusky appearing. Patient underwent right lower extremity angiogram 01/23/[address] Marmolejo which demonstrated popliteal occlusion with large collateral. The occlusion was unable to be penetrated. Patient was instructed to return to emergency room if she developed fever following surgery. Patient has minimal redness and warmth to left lower extremity which has resolved since admission. No open wound noted. Continue IV Unasyn and vancomycin pending blood cultures. Afebrile. WBC now 8.3, 14.[address] Frank consulted who patient follows with as outpatient. She does not suspect infection is related to gangrenous toes. Continue dressing changes daily with Santyl to the right foot. WBAT with bilateral foot surgical shoes. Consult wound RN. Urinalysis unremarkable, culture sent. Chest x-ray on admission showed under expanded lungs with bibasilar compression of lung markings/atelectasis. Lactic acid within normal limits. Wound culture shows Staphylococcus aureus. Blood cultures pending. 2. Acute kidney injury on chronic kidney disease-baseline creatinine 1.4. Creatinine admission 2.1. Improved with IV fluids. Monitor BMP. Hold home Lasix regimen. 3. Hypokalemia-replaced orally. Monitor BMP. 4. CAD status post CABG-continue aspirin, statin, Eliquis, beta-josé miguel. 5. History of DVT/PE on chronic anticoagulation with Eliquis 6. History of atrial fibrillation-rate controlled. Continue metoprolol and Eliquis. 7. History of upper GI bleed-hemoglobin stable. Continue PPI. 8. Chronic iron deficiency anemia-hemoglobin stable. Continue iron supplementation. 9. Hypertension-stable, continue home regimen. 10. Hyperlipidemia-continue statin. 11. Carotid artery stenosis-continue aspirin, statin. 12. Anxiety/depression-continue home regimen. 13. Gout-continue home uloric regimen. Do not suspect acute gout. 14. Morbid obesity- nutrition/emergency department manager consult. Encourage diet and lifestyle modifications. 15. Physical debility with history of falls-fall precautions. PT/OT. DVT prophylaxis-Eliquis. This patient was seen by FERCHO Castro under the supervision of Dr. Short. <Scott Short - Last Filed: 01/26/18 13:54> Subjective: Agree with the above note - Physical Exam Cardiovascular: - - Left TIGHT COOPER and popliteal not palpable Extremities: No clubbing, No cyanosis Vital Signs Temp Pulse Resp BP Pulse Ox 97.8 F 73 14 152/67 H 93 01/26/18 13:37 01/26/18 13:37 01/26/18 13:37 01/26/18 13:37 01/26/18 13:37 Oxygen Delivery Method Room Air Weight: 231 lb 7.766 oz Body Mass Index (BMI) 39.7 Intake and Output for Last 24 Hours 01/24/18 01/25/18 01/26/18 23:59 23:59 23:59 Intake Total 1045 / 1045 1913.2 / 1913.2 480 / 480 Balance 1045 / 1045 1913.2 / 1913.2 480 / 480 Microbiology Past 72 Hours 01/24/18 22:34 Gram Stain - Final Wound - Right Foot Wound Culture - Preliminary Staphylococcus aureus Laboratory Tests Past 24 Hrs 01/26/18 01/26/18 01/26/18 06:18 06:18 06:18 WBC 8.3 RBC 3.91 L Hgb 11.0 L Hct 36.5 L MCV 93.4 MCH 28.1 MCHC 30.1 L RDW 15.8 H RDW Differential 53.4 H Plt Count 238 MPV 9.7 Sodium 145 Potassium 3.8 Chloride 106 Carbon Dioxide 27.0 Anion Gap 12 BUN 25 H Creatinine 1.57 H Estim Creat Clear Calc 26.74 Est GFR (MDRD) Af Amer 41 L Est GFR (MDRD) Non-Af 34 L BUN/Creatinine Ratio 15.9 Glucose 97 Calcium 9.0 Random Vancomycin 12.8 MRSA (PCR) 01/26/18 11:50 WBC RBC Hgb Hct MCV MCH MCHC RDW RDW Differential Plt Count MPV Sodium Potassium Chloride Carbon Dioxide Anion Gap BUN Creatinine Estim Creat Clear Calc Est GFR (MDRD) Af Amer Est GFR (MDRD) Non-Af BUN/Creatinine Ratio Glucose Calcium Random Vancomycin MRSA (PCR) Pending Assessment/Plan This patient was seen in conjunction with Fern BOWIE. I have independently interviewed and examined the patient and reviewed pertinent history, examination findings, laboratory and plan of management. I have reviewed the note and agree with the documented findings with the few additional points. In brief, patient is admitted for nectrotic wound covered with eschar of toes of right foot. Left foot toes are also dusky/cyanosed nontender. Patient is on empirically IV vancomycin for for presumed cellulitis. Wound culture, preliminary showing staph aureus. Dr. Frank consult reviewed . Patient had angiogram on 01/23/2018 as mentioned above I have discussed my assessment with Fern BOWIE and orders have been reviewed. Code Visit Inpatient E&M: 11078 Subs Hosp L3
[2018-01-26 14:06] LABS: M R Staph aureus DNA By PCR Negative (Negative); Probe Check PASS; Specimen Processing Control PASS
--- NOTE | 2018-01-26 18:29 | NURSING ---
REPORT CALLED TO [facility], SON ERICA NOTIFIED. STATES WILL CALL PATIENT'S SISTER.
[2018-01-26] MEDS: Atorvastatin Calcium 40 MG Tablet PO (22:43)
[2018-01-26] MEDS: MELATONIN 3 MG TABLET PO (22:45)
[2018-01-27] MEDS: oxyCODONE 5 MG Tablet PO ×2 (00:26→06:24)
[2018-01-27 02:59] VITALS: PULSE 72
[2018-01-27 03:45] VITALS: BP 135/68; PULSE 74; RESP 12; TEMP 36.6; O2SAT 95
[2018-01-27 07:28] LABS: Hematocrit 35.8 % (37-47); Hemoglobin 11.2 g/dl (12.0-15.0); Mean Corp Hgb Conc 31.3 g/gl (32-36); Mean Corpuscular Hgb 28.2 pg (27.0-32.0); Mean Corpuscular Volume 90.2 fL (81-99); Mean Platelet Vol. 9.4 fl (6.2-12.0); Platelet Count 296 K/mm3 (150-450); RBC Distribution Width CV 15.6 % (11.6-14.6); RBC Distribution Width SD 51.6 fl (35.1-43.9); Red Blood Count 3.97 M/mm3 (4.2-5.4); White Blood Count 10.7 K/mm3 (4.4-11.0)
[2018-01-27 07:35] LABS: Scan Indicated on CBC? Y/N NO
[2018-01-27 07:55] VITALS: PULSE 72
[2018-01-27 07:58] LABS: Anion Gap 11 (5-15); BUN 22 mg/dL (7-18); BUN/Creat Ratio 14.9 RATIO (10-20); Calcium,Total 9.2 mg/dL (8.5-10.1); Chloride 103 mmol/L (98-107); Creatinine, Serum 1.48 mg/dL (0.55-1.02); EST Glomerular Filtration Rate 37 mL/min (>60); Est Glom Filt Rate - Afr Amer 44 mL/min (>60); Estimated Creatinine Clearance 28.36 ml/min; Glucose 90 mg/dL (74-106); Potassium 3.6 mmol/L (3.5-5.1); Sodium Level 144 mmol/L (136-145)
[2018-01-27 07:59] LABS: Vancomycin, Random Level 13.7 ug/mL (0.0-15.0)
[2018-01-27] MEDS: 0.9% NaCl Peripheral Flush Adult/Peds IV (08:12)
[2018-01-27] MEDS: Aspirin 81 MG TAB.CHEW PO (08:13)
[2018-01-27] MEDS: Iron Polysaccharide Complex 150 MG CAPSULE PO (08:13)
--- NOTE | 2018-01-27 09:15 | PCM.DC ---
You will use the following diet at home:: Cardiac Discharge Activity: - - Weightbearing as tolerated. Wear bilateral foot surgical shoes with ambulation. Call your doctor if you observe: Fever of 101 or Higher, Shortness of breath, Dizziness, Fainting spells, Chest pain, Increased palpitations (irregular heartbeat), Calf discomfort Additional Instructions: You will need to continue daily dressing changes to the right foot with Santyl that was previously prescribed. Continue follow-up with podiatry. Allergies/Adverse Reactions: Allergies Latex, Natural Rubber Allergy (Verified 01/24/18 13:18) Itching Sulfa (Sulfonamide Antibiotics) Allergy (Verified 01/24/18 13:18) Other Medications to take at Discharge Metoprolol(XL)Succ [Toprol Xl (Beta Lokesh)] 100 mg PO DAILY 09/11/17 rosuvastatin 20 mg tablet 20 mg PO QHS 10/16/17 Acetaminophen [Tylenol] 1,000 mg PO Q8H PRN PRN tablet 12/20/17 Aspirin [Aspirin, Baby] 81 mg PO DAILY@0800 tab.chew 12/20/17 Iron Polysaccharide Complex [Ferrex 150] 150 mg PO DAILYCM cap 12/20/17 Melatonin 3 mg PO QHS PRN tab 12/20/17 Oxycodone [Oxyir] 10 mg PO Q4H PRN PRN #30 tablet 12/20/17 Pantoprazole Sodium [Protonix] 40 mg PO DAILY #30 tab 12/20/17 Polyethylene Glycol 3350 [Miralax] 17 gm PO DAILY #30 packet 12/20/17 Potassium Chloride [K-Dur] 20 meq PO DAILYCM tab 12/20/17 Collagenase [Santyl] 1 applic TOPICAL DAILY 12/21/17 Docusate Sodium [Colace] 100 mg PO DAILY 12/21/17 Febuxostat [Uloric] 40 mg PO DAILY 12/21/17 Menthol/Lanolin/Calamine/Znox [Calmoseptine Ointment] 1 applic TOPICAL BID 12/21/17 Paroxetine HCl 20 mg PO DAILY 12/21/17 alprazolam 0.25 mg tablet 0.25 mg PO DAILY PRN PRN tab 01/01/18 Apixaban [Eliquis] 5 mg PO BID 01/02/18 Oxycodone HCl [Oxycontin] 10 mg PO DAILY 01/04/18 Furosemide 40 mg PO DAILY 01/24/18 Nystatin Powder [Mycostatin Powder] 1 applic TOPICAL BID 01/24/18 Cephalexin [Keflex] 500 mg PO Q8 #15 cap 01/27/18 The following prescriptions were given: Cephalexin [Keflex] 500 mg PO Q8 #15 cap Primary Care Physician: Karan Knutson Chi, MD [Primary Care Provider] - Please follow up with your Primary Care Physician in: 1 Week Please Follow Up With: Sherrell Frank DPM When: As scheduled Please Follow Up With: Geremias Marmolejo MD When: As scheduled Proposed Discharge Date: 01/27/18
--- NOTE | 2018-01-27 09:31 | PCM.DC.SUM ---
<Fern Mathew - Last Filed: 01/27/18 09:44> Discharge Date and Diagnosis Date of Admission: 01/24/18 Date of Discharge: 01/27/18 - Primary Discharge Diagnosis 1. Fever, leukocytosis, confusion-suspected secondary to necrotic wounds of right third and fifth toes. Wound culture positive for Staphylococcus aureus. 2. Acute kidney injury on chronic kidney disease stage III 3. 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) CABG x 4 DEMPSEY- LAD, Free JAVIER-OM, SVG-PDA and Disatl RCA Atherosclerotic heart disease of [place] coronary artery without angina pectoris (Chronic) Atrial fibrillation with rapid ventricular response (Chronic) Hyperlipidemia (Chronic) Gout (Chronic) Anxiety (Chronic) Aortic mural thrombus (Chronic) Insomnia (Chronic) Carotid artery stenosis (Chronic) PAOD (peripheral arterial occlusive disease) (Chronic) DVT (deep venous thrombosis) (Chronic) Pulmonary emboli (Chronic) Debility (Chronic) Morbid obesity (Chronic) Iron deficiency anemia (Chronic) CAD (coronary artery disease) (Chronic) Morbid obesity with BMI of 40.0-44.9, adult (Chronic) Hypertension (Chronic) Hypercholesterolemia (Chronic) Hospital Course and Treatment Imaging Results: Diagnostic Data Chest X-Ray 01/24/18 13:40 IMPRESSION: Lungs are underexpanded with bibasilar compression of lung markings/atelectasis. Electronically Signed: Sarita Contreras MD at 14:42 EDT , Service support , Consultations 01/24/18 17:19 Consult: Onc/Wound/lace and textiles restorer Routine Comment: Dr. Frank- Podiatry Operations: None Procedures: None Summary of Care Provided: Patient is a 77-year-old female admitted 01/24/2018 due to fever, confusion. 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 1. Fever, leukocytosis, confusion-did not meet sepsis criteria. Suspected secondary to chronic nonhealing necrotic wounds of the right third and fifth toes with underlying peripheral arterial occlusive disease secondary to atherosclerosis. Left great toe is also dusky appearing. Patient underwent right lower extremity angiogram 01/23/[address] Marmolejo which demonstrated popliteal occlusion with large collateral. The occlusion was unable to be penetrated. Patient was instructed to return to emergency room if she developed fever following surgery. Patient had minimal redness and warmth to left lower extremity which has resolved since admission. No open wound noted. Patient received IV Unasyn and vancomycin. Blood cultures negative. Afebrile. WBC now 10.7, 14.[address] Frank consulted who patient follows with as outpatient. Continue dressing changes daily with Santyl to the right foot. WBAT with bilateral foot surgical shoes. Urinalysis unremarkable. Chest x-ray on admission showed under expanded lungs with bibasilar compression of lung markings/atelectasis. Lactic acid within normal limits. Wound culture shows Staphylococcus aureus. Patient will be discharged on Keflex 500 mg 3 times daily for 5 days for a total of 7 days of antibiotic therapy. She will continue outpatient follow-up as scheduled with Dr. Frank and Dr. Marmolejo. See PCP in 1 week. 2. Acute kidney injury on chronic kidney disease stage 3-baseline creatinine 1.4. Creatinine admission 2.1. Improved with IV fluids. Creatinine discharge 1.48. 3. Hypokalemia-resolved. 4. CAD status post CABG-continue aspirin, statin, Eliquis, beta-lokesh. 5. History of DVT/PE on chronic anticoagulation with Eliquis 6. History of atrial fibrillation-rate controlled. Continue metoprolol and Eliquis. 7. History of upper GI bleed-hemoglobin stable. Continue PPI. 8. Chronic iron deficiency anemia-hemoglobin stable. Continue iron supplementation. 9. Hypertension-stable, continue home regimen. 10. Hyperlipidemia-continue statin. 11. Carotid artery stenosis-continue aspirin, statin. 12. Anxiety/depression-continue home regimen. 13. Gout-continue home uloric regimen. Acute gout ruled out. Uric acid 7.4. 14. Morbid obesity- Encourage diet and lifestyle modifications. 15. Physical debility with history of falls-discharge to assisted living facility. Recommend continued physical therapy. General: Alert, Cooperative, No apparent distress, Confused HEENT: Atraumatic, PERRLA, EOMI, Normocephalic Neck: Supple, No JVD, Negative Carotid Bruits Lungs: Clear to auscultation, Diminished Cardiovascular: Regular rate, Regular Rhythm, Normal S1, Normal S2, No murmurs Abdomen: Bowel Sounds Present, Soft, Non Tender, Non-Distended, Obese Extremities: No clubbing, No cyanosis, No edema, Capillary Refill Less than 3 Seconds Skin: - - Necrotic discoloration of the third and fifth toes on the right foot. Left great toe is dusky in color without evidence of gangrene. Left lower extremity mild erythema resolved. Musculoskeletal: No Tenderness to Palpation of Joints or Extremities Neurological: Cranial nerves II-XII grossly intact, Neuro grossly intact Psych/Mental Status: Normal Affect Patient seen and examined prior to discharge. Physical assessment as noted above. Patient stable for discharge with recommendations as noted above. This patient was seen by FERCHO Castro under the supervision of Dr. Short. Discharge Diet: Low fat/ Low Cholesterol Discharge Activity: - - Weightbearing as tolerated. Wear bilateral foot surgical shoes with ambulation. Call your doctor if you observe: Fever of 101 or Higher, Shortness of breath, Dizziness, Fainting spells, Chest pain, Increased palpitations (irregular heartbeat), Calf discomfort Home Medications: Medications to take at Discharge Metoprolol(XL)Succ [Toprol Xl (Beta Lokesh)] 100 mg PO DAILY 09/11/17 rosuvastatin 20 mg tablet 20 mg PO QHS 10/16/17 Acetaminophen [Tylenol] 1,000 mg PO Q8H PRN PRN tablet 12/20/17 Aspirin [Aspirin, Baby] 81 mg PO DAILY@0800 tab.chew 12/20/17 Iron Polysaccharide Complex [Ferrex 150] 150 mg PO DAILYCM cap 12/20/17 Melatonin 3 mg PO QHS PRN tab 12/20/17 Oxycodone [Oxyir] 10 mg PO Q4H PRN PRN #30 tablet 12/20/17 Pantoprazole Sodium [Protonix] 40 mg PO DAILY #30 tab 12/20/17 Polyethylene Glycol 3350 [Miralax] 17 gm PO DAILY #30 packet 12/20/17 Potassium Chloride [K-Dur] 20 meq PO DAILYCM tab 12/20/17 Collagenase [Santyl] 1 applic TOPICAL DAILY 12/21/17 Docusate Sodium [Colace] 100 mg PO DAILY 12/21/17 Febuxostat [Uloric] 40 mg PO DAILY 12/21/17 Menthol/Lanolin/Calamine/Znox [Calmoseptine Ointment] 1 applic TOPICAL BID 12/21/17 Paroxetine HCl 20 mg PO DAILY 12/21/17 alprazolam 0.25 mg tablet 0.25 mg PO DAILY PRN PRN tab 01/01/18 Apixaban [Eliquis] 5 mg PO BID 01/02/18 Oxycodone HCl [Oxycontin] 10 mg PO DAILY 01/04/18 Furosemide 40 mg PO DAILY 01/24/18 Nystatin Powder [Mycostatin Powder] 1 applic TOPICAL BID 01/24/18 Cephalexin [Keflex] 500 mg PO Q8 #15 cap 01/27/18 Following Prescrptions Were Given to Patient: Cephalexin [Keflex] 500 mg PO Q8 #15 cap Primary Care Physician: Karan Knutson Chi, MD [Primary Care Provider] - Please follow up with your Primary Care Physician in: 1 Week Please Follow Up With: Sherrell Frank DPM When: As scheduled Please Follow Up With: Geremias Marmolejo MD When: As scheduled Disposition: Asstd Living/Non-Skill [place] Minutes spent on discharge:: 35 Patient Condition:: Stable Medical Necessity - Tobacco Use Smoking Status: Former smoker Meaningful Use Info Meaningful Use Diagnoses (Choose all that apply): None applicable <Scott Short - Last Filed: 01/27/18 13:23> Discharge Date and Diagnosis - Secondary Discharge Diagnosis Chronic Problems (Last Updated 01/01/18 @ 09:21 by Raina Brandon) Skin ulcer of third toe of right foot (Chronic) Gangrene of toe (Chronic) Depression (Chronic) 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) 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) CABG x 4 DEMPSEY- LAD, Free JAVIER-OM, SVG-PDA and Disatl RCA Atherosclerotic heart disease of [place] coronary artery without angina pectoris (Chronic) Atrial fibrillation with rapid ventricular response (Chronic) Hyperlipidemia (Chronic) Gout (Chronic) Anxiety (Chronic) Aortic mural thrombus (Chronic) Insomnia (Chronic) Carotid artery stenosis (Chronic) PAOD (peripheral arterial occlusive disease) (Chronic) DVT (deep venous thrombosis) (Chronic) Pulmonary emboli (Chronic) Debility (Chronic) Morbid obesity (Chronic) Iron deficiency anemia (Chronic) CAD (coronary artery disease) (Chronic) Morbid obesity with BMI of 40.0-44.9, adult (Chronic) Hypertension (Chronic) Hypercholesterolemia (Chronic) Hospital Course and Treatment Consultations 01/24/18 17:19 Consult: Onc/Wound/lace and textiles restorer Routine Comment: Summary of Care Provided: This patient was seen in conjunction with Fern BOWIE. I have independently interviewed and examined the patient and reviewed pertinent history, examination findings, laboratory and plan of management. I have reviewed the note and agree with the documented findings with the few additional points. In brief, patient is admitted for chronic nonhealing necrotic wounds of the right third and fifth toes with underlying peripheral arterial occlusive disease secondary to atherosclerosis. Patient is discharged on Keflex. Follow-up instructions completed. Discharge medication reconciliation done. Total time spent, exact 32 minutes on discharge meds reconciliation, examination, review of imaging and blood test and discussion with the patient on follow-up instructions. I have discussed my assessment with Fern BOWIE and orders have been reviewed. [] Code Visit Inpatient E&M: 70302 Disch Hosp
[2018-01-27] MEDS: oxyCODONE HCl Cr 10 MG Tablet PO (09:42)
--- NOTE | 2018-01-27 09:42 | DS.PCM_ITS ---
<Fern Mathew - Last Filed: 01/27/18 09:44> Discharge Date and Diagnosis Date of Admission: 01/24/18 Date of Discharge: 01/27/18 - Primary Discharge Diagnosis 1. Fever, leukocytosis, confusion-suspected secondary to necrotic wounds of right third and fifth toes. Wound culture positive for Staphylococcus aureus. 2. Acute kidney injury on chronic kidney disease stage III 3. 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) CABG x 4 DEMPSEY- LAD, Free JAVIER-OM, SVG-PDA and Disatl RCA Atherosclerotic heart disease of [place] coronary artery without angina pectoris (Chronic) Atrial fibrillation with rapid ventricular response (Chronic) Hyperlipidemia (Chronic) Gout (Chronic) Anxiety (Chronic) Aortic mural thrombus (Chronic) Insomnia (Chronic) Carotid artery stenosis (Chronic) PAOD (peripheral arterial occlusive disease) (Chronic) DVT (deep venous thrombosis) (Chronic) Pulmonary emboli (Chronic) Debility (Chronic) Morbid obesity (Chronic) Iron deficiency anemia (Chronic) CAD (coronary artery disease) (Chronic) Morbid obesity with BMI of 40.0-44.9, adult (Chronic) Hypertension (Chronic) Hypercholesterolemia (Chronic) Hospital Course and Treatment Imaging Results: Diagnostic Data Chest X-Ray 01/24/18 13:40 IMPRESSION: Lungs are underexpanded with bibasilar compression of lung markings/atelectasis. Electronically Signed: Sarita Contreras MD at 14:42 EDT , Service support , Consultations 01/24/18 17:19 Consult: Onc/Wound/metal mine inspector Routine Comment: Dr. Frank- Podiatry Operations: None Procedures: None Summary of Care Provided: Patient is a 77-year-old female admitted 01/24/2018 due to fever, confusion. 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 1. Fever, leukocytosis, confusion-did not meet sepsis criteria. Suspected secondary to chronic nonhealing necrotic wounds of the right third and fifth toes with underlying peripheral arterial occlusive disease secondary to atherosclerosis. Left great toe is also dusky appearing. Patient underwent right lower extremity angiogram 01/23/[address] Marmolejo which demonstrated popliteal occlusion with large collateral. The occlusion was unable to be penetrated. Patient was instructed to return to emergency room if she developed fever following surgery. Patient had minimal redness and warmth to left lower extremity which has resolved since admission. No open wound noted. Patient received IV Unasyn and vancomycin. Blood cultures negative. Afebrile. WBC now 10.7, 14.[address] Frank consulted who patient follows with as outpatient. Continue dressing changes daily with Santyl to the right foot. WBAT with bilateral foot surgical shoes. Urinalysis unremarkable. Chest x -ray on admission showed under expanded lungs with bibasilar compression of lung markings/atelectasis. Lactic acid within normal limits. Wound culture shows Staphylococcus aureus. Patient will be discharged on Keflex 500 mg 3 times daily for 5 days for a total of 7 days of antibiotic therapy. She will continue outpatient follow-up as scheduled with Dr. Frank and Dr. Marmolejo. See PCP in 1 week. 2. Acute kidney injury on chronic kidney disease stage 3-baseline creatinine 1.4. Creatinine admission 2.1. Improved with IV fluids. Creatinine discharge 1.48. 3. Hypokalemia-resolved. 4. CAD status post CABG-continue aspirin, statin, Eliquis, beta-lokesh. 5. History of DVT/PE on chronic anticoagulation with Eliquis 6. History of atrial fibrillation-rate controlled. Continue metoprolol and Eliquis. 7. History of upper GI bleed-hemoglobin stable. Continue PPI. 8. Chronic iron deficiency anemia-hemoglobin stable. Continue iron supplementation. 9. Hypertension-stable, continue home regimen. 10. Hyperlipidemia-continue statin. 11. Carotid artery stenosis-continue aspirin, statin. 12. Anxiety/depression-continue home regimen. 13. Gout-continue home uloric regimen. Acute gout ruled out. Uric acid 7.4. 14. Morbid obesity- Encourage diet and lifestyle modifications. 15. Physical debility with history of falls-discharge to assisted living facility. Recommend continued physical therapy. General: Alert, Cooperative, No apparent distress, Confused HEENT: Atraumatic, PERRLA, EOMI, Normocephalic Neck: Supple, No JVD, Negative Carotid Bruits Lungs: Clear to auscultation, Diminished Cardiovascular: Regular rate, Regular Rhythm, Normal S1, Normal S2, No murmurs Abdomen: Bowel Sounds Present, Soft, Non Tender, Non-Distended, Obese Extremities: No clubbing, No cyanosis, No edema, Capillary Refill Less than 3 Seconds Skin: - - Necrotic discoloration of the third and fifth toes on the right foot. Left great toe is dusky in color without evidence of gangrene. Left lower extremity mild erythema resolved. Musculoskeletal: No Tenderness to Palpation of Joints or Extremities Neurological: Cranial nerves II-XII grossly intact, Neuro grossly intact Psych/Mental Status: Normal Affect Patient seen and examined prior to discharge. Physical assessment as noted above. Patient stable for discharge with recommendations as noted above. This patient was seen by FERCHO Castro under the supervision of Dr. Short. Discharge Diet: Low fat/ Low Cholesterol Discharge Activity: - - Weightbearing as tolerated. Wear bilateral foot surgical shoes with ambulation. Call your doctor if you observe: Fever of 101 or Higher, Shortness of breath, Dizziness, Fainting spells, Chest pain, Increased palpitations (irregular heartbeat), Calf discomfort Home Medications: Medications to take at Discharge Metoprolol(XL)Succ [Toprol Xl (Beta Lokesh)] 100 mg PO DAILY 09/11/17 rosuvastatin 20 mg tablet 20 mg PO QHS 10/16/17 Acetaminophen [Tylenol] 1,000 mg PO Q8H PRN PRN tablet 12/20/17 Aspirin [Aspirin, Baby] 81 mg PO DAILY@0800 tab.chew 12/20/17 Iron Polysaccharide Complex [Ferrex 150] 150 mg PO DAILYCM cap 12/20/17 Melatonin 3 mg PO QHS PRN tab 12/20/17 Oxycodone [Oxyir] 10 mg PO Q4H PRN PRN #30 tablet 12/20/17 Pantoprazole Sodium [Protonix] 40 mg PO DAILY #30 tab 12/20/17 Polyethylene Glycol 3350 [Miralax] 17 gm PO DAILY #30 packet 12/20/17 Potassium Chloride [K-Dur] 20 meq PO DAILYCM tab 12/20/17 Collagenase [Santyl] 1 applic TOPICAL DAILY 12/21/17 Docusate Sodium [Colace] 100 mg PO DAILY 12/21/17 Febuxostat [Uloric] 40 mg PO DAILY 12/21/17 Menthol/Lanolin/Calamine/Znox [Calmoseptine Ointment] 1 applic TOPICAL BID 12/21 Paroxetine HCl 20 mg PO DAILY 12/21/17 alprazolam 0.25 mg tablet 0.25 mg PO DAILY PRN PRN tab 01/01/18 Apixaban [Eliquis] 5 mg PO BID 01/02/18 Oxycodone HCl [Oxycontin] 10 mg PO DAILY 01/04/18 Furosemide 40 mg PO DAILY 01/24/18 Nystatin Powder [Mycostatin Powder] 1 applic TOPICAL BID 01/24/18 Cephalexin [Keflex] 500 mg PO Q8 #15 cap 01/27/18 Following Prescrptions Were Given to Patient: Cephalexin [Keflex] 500 mg PO Q8 #15 cap Primary Care Physician: Karan Knutson Chi, MD [Primary Care Provider] - Please follow up with your Primary Care Physician in: 1 Week Please Follow Up With: Sherrell Frank DPM When: As scheduled Please Follow Up With: Geremias Marmolejo MD When: As scheduled Disposition: Asstd Living/Non-Skill [place] Minutes spent on discharge:: 35 Patient Condition:: Stable Medical Necessity - Tobacco Use Smoking Status: Former smoker Meaningful Use Info Meaningful Use Diagnoses (Choose all that apply): None applicable <Scott Short - Last Filed: 01/27/18 13:23> Discharge Date and Diagnosis - Secondary Discharge Diagnosis Chronic Problems (Last Updated 01/01/18 @ 09:21 by Raina Brandon) Skin ulcer of third toe of right foot (Chronic) Gangrene of toe (Chronic) Depression (Chronic) 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) 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) CABG x 4 DEMPSEY- LAD, Free JAVIER-OM, SVG-PDA and Disatl RCA Atherosclerotic heart disease of [place] coronary artery without angina pectoris (Chronic) Atrial fibrillation with rapid ventricular response (Chronic) Hyperlipidemia (Chronic) Gout (Chronic) Anxiety (Chronic) Aortic mural thrombus (Chronic) Insomnia (Chronic) Carotid artery stenosis (Chronic) PAOD (peripheral arterial occlusive disease) (Chronic) DVT (deep venous thrombosis) (Chronic) Pulmonary emboli (Chronic) Debility (Chronic) Morbid obesity (Chronic) Iron deficiency anemia (Chronic) CAD (coronary artery disease) (Chronic) Morbid obesity with BMI of 40.0-44.9, adult (Chronic) Hypertension (Chronic) Hypercholesterolemia (Chronic) Hospital Course and Treatment Consultations 01/24/18 17:19 Consult: Onc/Wound/metal mine inspector Routine Comment: Summary of Care Provided: This patient was seen in conjunction with Fern BOWIE. I have independently interviewed and examined the patient and reviewed pertinent history, examination findings, laboratory and plan of management. I have reviewed the note and agree with the documented findings with the few additional points. In brief, patient is admitted for chronic nonhealing necrotic wounds of the right third and fifth toes with underlying peripheral arterial occlusive disease secondary to atherosclerosis. Patient is discharged on Keflex. Follow- up instructions completed. Discharge medication reconciliation done. Total time spent, exact 32 minutes on discharge meds reconciliation, examination , review of imaging and blood test and discussion with the patient on follow-up instructions. I have discussed my assessment with Fern BOWIE and orders have been reviewed. [] Code Visit Inpatient E&M: 62509 Disch Hosp
[2018-01-27] MEDS: Menthol/Lanolin/Calamine/Znox 113 GM Tube 1 APPLIC TOPICAL (09:43)
[2018-01-27] MEDS: FEBUXOSTAT 40 MG TABLET PO (09:48)
[2018-01-27] MEDS: APIXABAN 5 MG TABLET PO (09:49)
[2018-01-27] MEDS: Collagenase 30gm Tube 1 APPLIC TOPICAL (10:02)
[2018-01-27] MEDS: Pantoprazole Sodium 40 MG Tablet PO (10:02)
[2018-01-27 10:03] VITALS: BP 175/80; PULSE 68
[2018-01-27] MEDS: Metoprolol(XL)Succ 100 MG Tablet PO (10:03)
[2018-01-27 12:23] VITALS: PULSE 67
[2018-01-27 12:54] VITALS: BP 150/81; PULSE 65; RESP 18; TEMP 36.6; O2SAT 96
--- NOTE | 2018-01-27 13:20 | NURSING ---
REPORT CALLED TO ALESIA
== END 2018-01-27 14:06 | disposition home or self-care (01) | DRG 300 ==
LOC: ED 14:26 → PCU 17:06 → MS3 01-26 18:12
PROVIDERS: Nurse Practitioner Family; Admitting Provider Hospitalist; Emergency Provider Emergency Medicine; Family Provider Family Medicine Geriatric Medicine; PCP Family Medicine Geriatric Medicine; Visit Provider Internal Medicine
DX: I70.261 Atherosclerosis of native arteries of extremities with gangrene, right leg (principal); I70.92 Chronic total occlusion of artery of the extremities; N17.9 Acute kidney failure, unspecified; L97.519 Non-pressure chronic ulcer of other part of right foot with unspecified severity; I48.2 Chronic atrial fibrillation; E66.01 Morbid (severe) obesity due to excess calories; I65.29 Occlusion and stenosis of unspecified carotid artery; D50.9 Iron deficiency anemia, unspecified; I25.10 Atherosclerotic heart disease of native coronary artery without angina pectoris; B95.61 Methicillin susceptible Staphylococcus aureus infection as the cause of diseases classified elsewhere; M10.9 Gout, unspecified; I12.9 Hypertensive chronic kidney disease with stage 1 through stage 4 chronic kidney disease, or unspecified chronic kidney disease; N18.3 Chronic kidney disease, stage 3 (moderate); E87.6 Hypokalemia; Z68.39 Body mass index [BMI] 39.0-39.9, adult; F41.9 Anxiety disorder, unspecified; Z79.02 Long term (current) use of antithrombotics/antiplatelets; Z95.1 Presence of aortocoronary bypass graft; E78.00 Pure hypercholesterolemia, unspecified; Z86.718 Personal history of other venous thrombosis and embolism; Z87.891 Personal history of nicotine dependence
CPT/HCPCS: 36245; 36415; 37225; 71045; 75710; 76937; 80048; 80053; 80069; 80202; 81001; 83605; 83735; 84550; 85025; 85027; 85610; 85730; 87040; 87070; 87077; 87086; 87186; 87205; 87641; 87804; 90471; 97162; 97165; 97530; 97802; 99152; 99153; 99285; C1725; J3010; J7030; J7040; J7050; Q9967; A4216; C1760; C1769; C1887; C1894; J0295

== ENCOUNTER 2018-01-29 11:36 | Emergency (ER) | payer MEDICARE, SELFPAY ==
[2018-01-29 11:37] VITALS: BP 147/78; PULSE 76; RESP 14; TEMP 37.2; O2SAT 88; BMI 39.9
[2018-01-29 11:41] VITALS: BP 147/78; PULSE 73; RESP 18; TEMP 37.2; O2SAT 95
[2018-01-29 12:54] LABS: Absolute Lymphocyte Count 1.89 X10^3/ul (0.83-4.51); Absolute Neutrophil Count 8.4 X10^3/uL (2.0-7.7); Basophil# 0.02 X10^3/uL; Basophil% 0.2 % (0-1); Eosinophil# 0.33 X10^3/uL; Eosinophils% 2.8 % (0-5); Hemoglobin 11.1 g/dl (12.0-15.0); Lymphocyte # 1.89 X10^3/ul (4.0); Lymphocyte % 15.9 % (19-41); Mean Corp Hgb Conc 30.8 g/gl (32-36); Mean Corpuscular Hgb 27.8 pg (27.0-32.0); Mean Platelet Vol. 9.3 fl (6.2-12.0); Monocyte# 1.22 X10^3/uL; Monocyte% 10.2 % (0-10); Neutrophil % 70.4 % (47-70); Platelet Count 297 K/mm3 (150-450); RBC Distribution Width CV 15.4 % (11.6-14.6); RBC Distribution Width SD 51.1 fl (35.1-43.9); White Blood Count 11.9 K/mm3 (4.4-11.0)
[2018-01-29 12:55] LABS: POSITIVE COUNT NO; POSITIVE DIFFERENTIAL NO; POSITIVE MORPHOLOGY NO
[2018-01-29 13:17] LABS: Lactic Acid 1.1 mmol/L (0.4-2.0)
--- NOTE | 2018-01-29 13:49 | RAD_ITS ---
STUDY: X-RAY CHEST REASON FOR EXAM: Female, 77 years old. Hypoxia. Fever. TECHNIQUE: AP and lateral views of the chest. COMPARISON: Comparison is made with prior study dated January 24, 2018. FINDINGS: EKG collections are seen. Hyperinflation. There is no demonstrated pleural abnormality. Sternal cerclage wires and vascular clips are present from a prior sternotomy and coronary artery bypass graft procedure (CABG). Normal mediastinum and gabi. Normal visualized pulmonary arteries. There is atherosclerotic calcification of the aortic arch with tortuosity. There are diffuse degenerative changes of the visualized thoracic spine. Normal visualized ribs, clavicles, and shoulders. There is no demonstrated abnormality of the visualized soft tissue structures of the upper abdomen. RAD/Chest PA and Lateral IMPRESSION: No acute abnormality is seen. Electronically Signed: Milton Shetty MD at 14:31 EDT Tel [phone], Service support ,
[2018-01-29 14:22] VITALS: BP 119/87; PULSE 72; RESP 14; O2SAT 97
[2018-01-29 14:33] LABS: Anion Gap 8 (5-15); BUN 24 mg/dL (7-18); BUN/Creat Ratio 12.6 RATIO (10-20); Calcium,Total 9.1 mg/dL (8.5-10.1); Chloride 101 mmol/L (98-107); Creatinine, Serum 1.91 mg/dL (0.55-1.02); EST Glomerular Filtration Rate 27 mL/min (>60); Est Glom Filt Rate - Afr Amer 33 mL/min (>60); Glucose 97 mg/dL (74-106); Potassium 3.7 mmol/L (3.5-5.1); Sodium Level 138 mmol/L (136-145)
--- NOTE | 2018-01-29 14:58 | ED.VISSUMM ---
- ER Visit Summary Date of Service: 01/29/18 Chief Complaint: Fever History of Present Illness: The patient is a [address] Braden, Dr. Marmolejo, and Dr. Knutson. She was recently admitted to the hospital for diabetic ulcers that are necrotic on her right foot. She was found to have MSSA and was discharged on Ke[facility] 27. [facility] reports that today the patient had a temperature of 100.0?. She is denies sore throat, cough, chest pain, shortness of breath, abdominal pain, nausea, or vomiting. She reports she has had one episode of diarrhea today. No blood in her stools. She denies any dysuria or frequency. Physical Examination: Vitals: 99.0, 147/78, 76, 14, 88% on room air which is hypoxic. General: Well-nourished and well-developed. Head: Normocephalic atraumatic. Neck: Supple, no lymphadenopathy. No JVD. Nontender. Cardiovascular: Regular rate and rhythm. No murmurs. Respiratory: No respiratory distress. Clear to auscultation bilaterally. Abdominal: Soft, nontender, nondistended, normal bowel sounds. No guarding, rebound, or peritoneal signs. Back: Nontender. Extremities: No palpable DP or posterior tibialis pulses bilaterally. She has necrotic area to the bottom of her right third and fifth toes. The medial bottom of her left first toe is purple.. Skin: Normal color, no rash. Neurologic: Alert and oriented ?3. Cranial nerves II through XII are intact. Normal strength and sensation. Psych: Normal affect. Test Results: CBC is marked for white count 11.9, H&H 11.1 36.0, lymphs at 16. Lactic acid is 1.1. Chem-7 more for BUN 24 creatinine 1.91. Her creatinine is ranged from [id number]. Chest x-ray shows no acute disease. Emergency Department Course and Treatment: Patient is resting comfortably without complaint. Treatment Plan: Patient was discussed with Dr. Braden on who reports that unless there is an obvious change that really no other treatment is available. She had attempt at revascularization while she was here that was unsuccessful. She does not have an acute ischemic leg. Patient was discussed with Dr. Watkins regarding her hypoxia. He feels at this time the patient would best be served by oxygen at the retirement. He would like to see her in the office tomorrow and begin discussion of palliative care and/or hospice. Disposition: To the retirement in stable condition. Impression: 1. Necrotic ulcers right third and fifth toes, chronic. 2. Chronic renal insufficiency. 3. Hypoxia. 4. Coagulopathy on Eliquis. This note was generated with [employer] dictation software. It may contain incorrect words, spelling, and punctuation that were not noted in review of the chart prior to signing ED Disposition - Plan for ED Patient: Disposition: Home or Assisted Living Chief Complaint: Fever Instructions: Discharge Instructions for Diabetic Foot Ulcers Prescriptions: Oxygen, Home [Home Oxygen] 2 lpm NASAL X1 #1 unit Referrals: Karan Knutson Chi, MD [Primary Care Provider] - 1 Day for another exam
[2018-01-29 15:50] VITALS: BP 137/76; PULSE 82; RESP 15; O2SAT 98
== END 2018-01-29 15:51 | disposition home or self-care (01) ==
PROVIDERS: Emergency Provider Emergency Medicine; Family Provider Family Medicine Geriatric Medicine; PCP Family Medicine Geriatric Medicine
DX: L97.518 Non-pressure chronic ulcer of other part of right foot with other specified severity (principal); R19.7 Diarrhea, unspecified; I12.9 Hypertensive chronic kidney disease with stage 1 through stage 4 chronic kidney disease, or unspecified chronic kidney disease; N18.9 Chronic kidney disease, unspecified; R09.02 Hypoxemia; D68.9 Coagulation defect, unspecified; Z79.01 Long term (current) use of anticoagulants; E78.00 Pure hypercholesterolemia, unspecified; I25.10 Atherosclerotic heart disease of native coronary artery without angina pectoris; I48.91 Unspecified atrial fibrillation; Z95.1 Presence of aortocoronary bypass graft; Z86.718 Personal history of other venous thrombosis and embolism; Z86.711 Personal history of pulmonary embolism; Z87.891 Personal history of nicotine dependence
CPT/HCPCS: 71046; 80048; 83605; 85025; 87040; 99285